=== PATIENT | male | born 1940 | race Caucasian/White ===

== ENCOUNTER 2021-06-22 16:45 | Outpatient (REF) | payer OTHER, SELFPAY ==
[2021-06-22 19:04] LABS: BUN 27 mg/dL (7-18); Calcium 8.9 mg/dL (8.5-10.1); Chloride 107 mmol/L (98-107); Glucose 99 mg/dL (74-106); Potassium 4.4 mmol/L (3.5-5.1); Sodium 143 mmol/L (136-145)
== END 2021-06-22 16:46 | disposition home or self-care (01) ==
LOC: NCHCN 16:45
PROVIDERS: PCP Family Medicine; Visit Provider Nurse Practitioner Family
DX: I10 Essential (primary) hypertension (principal)
CPT/HCPCS: 80048

== ENCOUNTER 2022-06-24 15:34 | Outpatient (REF) | payer OTHER, SELFPAY ==
[2022-06-24 16:29] LABS: Anion Gap 10.8 mmol/L (3-11); BUN 24 mg/dL (7-18); CO2 24.2 mmol/L (21.0-32.0); CREATININE 1.1 mg/dL (0.70-1.30); Calcium 9.3 mg/dL (8.5-10.1); Chloride 106 mmol/L (98-107); Glucose 100 mg/dL (74-106); Potassium 4.2 mmol/L (3.5-5.1); Sodium 141 mmol/L (136-145)
== END 2022-06-24 15:35 | disposition home or self-care (01) ==
LOC: NCHCN 15:34
PROVIDERS: Visit Provider Nurse Practitioner Family
DX: I10 Essential (primary) hypertension (principal)
CPT/HCPCS: 80048

== ENCOUNTER 2022-09-09 18:02 | Outpatient (REF) | payer OTHER, SELFPAY ==
[2022-09-09 19:31] LABS: HCT 38.8 % (40.0-50.0); HGB 13.2 g/dL (13.5-17.5); MCV 91 fL (80-95); Platelet Count 165 10^3/uL (130-400); RBC 4.26 10^6/uL (4.36-5.78); RDW-SD 49.6 fL; WBC 5.07 10^3/uL (4.4-10.8)
[2022-09-09 19:49] LABS: TSH (W/Ref FT4) 1.69 uIU/mL (0.36-3.74)
== END 2022-09-09 18:03 | disposition home or self-care (01) ==
LOC: NCHCN 18:02
PROVIDERS: Visit Provider Nurse Practitioner Family
DX: R51.9 Headache, unspecified (principal); I10 Essential (primary) hypertension
CPT/HCPCS: 85027; 84443

== ENCOUNTER 2022-09-10 14:52 | Emergency (ER) | payer OTHER, SELFPAY ==
--- NOTE | 2022-09-10 15:00 | RT.EKG_ITS ---
APPROVED REPORT Exam: Resting ECG Reason for Exam: irregular hr, sob Patient Location: E HR:132 bpm ECG Measurements Heart Rate 132 AXIS CA [id number] P [id number] QRSd 94 QRS 16 QT 314 T 124 QTc 467 Conclusion Atrial fibrillation...V-rate 79-155, irreg A-activity Anterolateral infarct, age indeterminate...Q >35mS, flat/neg T, V3-V6,I,aVL. Afib. Normal axis. No STEMI. I have reviewed and interpreted ECG and agree with software generated interpretation.
[2022-09-10 15:03] VITALS: BP 108/81; PULSE 129; RESP 18; TEMP 36.7; O2SAT 99
[2022-09-10 15:50] LABS: Abs Immature Grans 0.01 10^3/uL (0.0-0.06); Absolute Basophil Count 0.01 10^3/uL (0.0-0.2); Absolute Eosinophil Count 0.02 10^3/uL (0.0-0.7); Absolute Lymphocyte Count 1.02 10^3/uL (1.2-3.4); Absolute Monocyte Count 0.56 10^3/uL (0.1-0.8); Absolute Neutrophil Count 3.42 10^3/uL (1.2-6.7); Basophils % 0.2; Eosinophils % 0.4; HCT 39.6 % (40.0-50.0); HGB 12.9 g/dL (13.5-17.5); Immature Grans % 0.2; Lymphocytes % 20.2; MCH 30.3 pg (27.0-33.0); MCHC 32.6 % (32.0-36.0); MCV 93 fL (80-95); MPV 10.3 fL (8.0-11.0); Monocytes % 11.1; Neutrophils % 67.9; Platelet Count 149 10^3/uL (130-400); RBC 4.26 10^6/uL (4.36-5.78); RDW 15.2 % (11.8-14.1); RDW-SD 51.8 fL; WBC 5.04 10^3/uL (4.4-10.8)
[2022-09-10 16:10] LABS: Albumin 3.8 g/dL (3.4-5.0); Chloride 102 mmol/L (98-107); Total Protein 7.1 g/dL (6.4-8.2)
[2022-09-10 16:12] LABS: ALT 59 U/L (16-63); AST 52 U/L (15-37); Alkaline Phosphatase 110 U/L (46-116); Anion Gap 12.2 mmol/L (3-11); BUN 45 mg/dL (7-18); Bilirubin, Total 0.6 mg/dL (0.2-1.0); CO2 23.8 mmol/L (21.0-32.0); CREATININE 1.6 mg/dL (0.70-1.30); Calcium 8.9 mg/dL (8.5-10.1); Estimated GFR 42.75 (mL/min/1.73m2); Glucose 112 mg/dL (74-106); Magnesium 2.1 mg/dL (1.8-2.4); Potassium 4.5 mmol/L (3.5-5.1); Sodium 138 mmol/L (136-145)
[2022-09-10 16:13] LABS: Bilirubin Negative (Negative); Blood Negative (Negative); Clarity Clear (Clear); Glucose Negative (Negative); Ketones Negative (Negative); Leukocyte Esterase Negative (Negative); Nitrite Negative (Negative); Specific Gravity >= 1.030 (1.005-1.025); Urobilinogen 0.2 EU/dL (Up TO 0.2); pH 5.5 (5-8)
[2022-09-10 16:13] LABS: Troponin I 101 ng/L (<or=60)
[2022-09-10 16:28] LABS: Bacteria Few HPF (Negative); C & S Indicated? Yes; Casts 10-20 Hyaline LPF (Negative); Crystals Negative HPF (Negative); Epithelial Cells Rare HPF (Negative); Mucus Moderate (Negative); RBC 0-2 HPF (0-2); WBC 20-50 HPF (0-5)
[2022-09-10 16:37] LABS: COVID-19 PCR Negative (Negative); Influenza A PCR Negative (Negative); Influenza B PCR Negative (Negative); RSV PCR Negative (Negative)
[2022-09-10 16:41] LABS: Source Nasopharynx
--- NOTE | 2022-09-10 16:48 | ED.GENADUL_ITS ---
Discharge Plan Disposition Patient Disposition: HOME Condition: Improving Discharge Details Clinical Impression: New onset atrial fibrillation, Elevated troponin Primary Care Provider: Radha Amador V ED Provider: Bryanna Davila Home Meds and New Rx's Prescriptions: New metoprolol tartrate 25 mg tablet 25 mg PO BID Qty: 60 0RF Eliquis 5 mg tablet 5 mg PO BID Qty: 90 0RF Rx Instructions: Take 2 tabs twice daily for 1 week then 1 tab twice daily Discontinued aspirin [Aspir-81] 81 MG tablet,delayed release (DR/EC) 81 mg PO DAILY lisinopril 10 MG tablet 10 mg PO DAILY hydrochlorothiazide 25 MG tablet 25 mg PO DAILY Discharge Instructions Instructions: A-fib (Atrial Fibrillation) (ED) Additional Instructions: Your heart rate is elevated and irregular consistent with a diagnosis of an abnormal heart rhythm called atrial fibrillation. It has been recommended by [facility] cardiology to stop taking your hydrochlorothiazide and lisinopril today. Prescriptions for the heart medication metoprolol to decrease your heart rate and the blood thinner Eliquis to prevent a blood clot have been sent electronically to your pharmacy. You have been placed on care management list to help arrange for a follow-up appointment with a wire web worker and to schedule an outpatient echocardiogram at [place] as you requested. Return immediately to the emergency department if you develop any worsening or new concerning symptoms. Referrals: Rowena Huntley MD [ [facility] STAFF PHYSICIAN] - Discharge Data Discharge Date/Time-TO BE ENTERED AT DEPARTURE: 09/10/22 22:48 Discharge Physician: Bryanna Davila Medical Decision Making 81-year-old male with a history of hypertension presents for dyspnea with exertion for the past 2 weeks. Also initially endorsed headache since the COVID booster but states this has been resolving. Denies headache at present. EKG on arrival notes a rate of 132, atrial fibrillation. Patient denies any known history of atrial fibrillation. Blood pressure 108/81. He appears comfortable and nontoxic. He has no focal deficits or meningeal signs. Due to high volume and acuity on arrival, screening labs were obtained and noted an elevated troponin of 101. He has no ischemic changes and denies any chest pain suspect this is demand from tachycardia. Urinalysis also obtained and notes 20-50 WBCs with negative leukocyte esterase, negative nitrite, urine culture sent. Fluvid negative. Will order a dose of 10 mg Cardizem IV and small bolus IV fluids. Will obtain a portable cxr. Will plan for repeat troponin and ekg. Pt would prefer to go home. 1899 --repeat troponin downtrending. Repeat EKG negative for ischemic change. His heart rate has remained in the 80s to 90s. Chest x-ray notes small right pleural effusion but no other acute disease. Case discussed with [facility] cardiology who notes that on an echo in June 2021 patient had moderate aortic stenosis. Could consider admission for repeat echocardiogram and telemetry monitoring. Informed that patient would like to go home. This is also a reasonable plan as you can obtain an echo outpatient and plan to hold his HCTZ and lisinopril and start metoprolol tartrate 25 to 50 mg twice daily. Recommend starting Eliquis for anticoagulation. Recommend follow- up with cardiology outpatient. 1999 --patient reassessed and his heart rate is in the low 100s to 120s. His blood pressure is 114/74. He is otherwise asymptomatic. There are no beds available here. Discussed with patient that we can consider transferring to another facility for admission for new onset atrial fibrillation but he would like to go home. Disposition decision made weighing the risks and benefits of hospitalization versus outpatient treatment, the risk for further decompensation, and the patient's wishes. Will give a dose of metoprolol 25 mg p.o. now. We will send with prescription for metoprolol tartrate 25 mg p.o. twice daily with plan for holding his HCTZ and lisinopril. We will also start on Eliquis. Will order an outpatient echocardiogram and placed on care management fluids for a follow-up appointment with cardiology. Patient would like to schedule his echocardiogram at [facility]. Patient placed on care management list to arrange for a follow-up appointment with cardiology and obtain an outpatient echocardiogram at [facility]. Usual and customary return precautions given prior to discharge. Medical Records Medical records reviewed: Yes I reviewed the patient's medical records. Imaging Data Radiologic Study: Radiologist's impression: XR Chest Exam date and time: 09/10/2022 17:22 Age: 81 years old Clinical indication: Shortness of breath and other: SOB w/ exertion TECHNIQUE: Imaging protocol: Radiologic exam of the chest. Views: 2 views. COMPARISON: No relevant prior studies available. FINDINGS: Lungs: Probable minor compressive atelectasis in the right lung base. Suspected emphysema. No airspace consolidation. Pleural spaces: Small right pleural effusion. No pneumothorax. Heart/Mediastinum: Mild cardiomegaly without significant vascular congestion. Bones/joints: Chronic bony changes with no acute fracture. IMPRESSION: 1. Mild cardiomegaly without significant vascular congestion. 2. Small right pleural effusion. 3. Chronic findings as described. Lab Data Lab results reviewed: Yes I reviewed the patient's lab results. Labs: 09/10/22 16:09 Urine - Reflex from Ua Urine Culture - Pending Laboratory Tests Range/Units 09/10/22 09/10/22 09/10/22 15:32 15:44 15:44 WBC (4.4-10.8) 10^3/uL 5.04 RBC (4.36-5.78) 10^6/uL 4.26 L Hgb (13.5-17.5) g/dL 12.9 L Hct (40.0-50.0) % 39.6 L MCV (80-95) fL 93 MCH (27.0-33.0) pg 30.3 MCHC (32.0-36.0) % 32.6 RDW (11.8-14.1) % 15.2 H Plt Count (130-400) 10^3/uL 149 MPV (8.0-11.0) fL 10.3 Immature Gran % 0.2 Neutrophils % 67.9 Lymphocytes % 20.2 Monocytes % 11.1 Eosinophils % 0.4 Basophils % 0.2 Nucleated RBC % (0.0-0.3) % 0.0 Absolute Neutrophils (1.2-6.7) 10^3/uL 3.42 Absolute Lymphocytes (1.2-3.4) 10^3/uL 1.02 L Absolute Monocytes (0.1-0.8) 10^3/uL 0.56 Absolute Eosinophils (0.0-0.7) 10^3/uL 0.02 Absolute Basophils (0.0-0.2) 10^3/uL 0.01 Sodium (136-145) mmol/L 138 Potassium (3.5-5.1) mmol/L 4.5 Chloride (98-107) mmol/L 102 Carbon Dioxide (21.0-32.0) mmol/L 23.8 Anion Gap (3-11) mmol/L 12.2 H BUN (7-18) mg/dL 45 H Creatinine (0.70-1.30) mg/dL 1.6 H Est GFR (CKD-EPI 2020) (mL/min/1.73m2) 42.75 Glucose (74-106) mg/dL 112 H Calcium (8.5-10.1) mg/dL 8.9 Magnesium (1.8-2.4) mg/dL 2.1 Total Bilirubin (0.2-1.0) mg/dL 0.6 AST (15-37) U/L 52 H ALT (16-63) U/L 59 Alkaline Phosphatase (46-116) U/L 110 Troponin I (<or=60) ng/L 101 H* Total Protein (6.4-8.2) g/dL 7.1 Albumin (3.4-5.0) g/dL 3.8 TSH (0.36-3.74) uIU/mL Urine Color (Yellow) Urine Clarity (Clear) Urine pH (5-8) Ur Specific [place] (1.005-1.025) Urine Protein (Negative) mg/dL Urine Ketones (Negative) mg/dL Urine Blood (Negative) Urine Nitrite (Negative) Urine Bilirubin (Negative) Urine Urobilinogen (Up TO 0.2) EU/dL Ur Leukocyte Esterase (Negative) Urine RBC (0-2) HPF Urine WBC (0-5) HPF Ur Epithelial Cells (Negative) HPF Urine Crystals (Negative) HPF Urine Bacteria (Negative) HPF Urine Casts (Negative) LPF Urine Mucus (Negative) Ur Culture Indicated? Urine Glucose (Negative) mg/dL COVID-19 Source Nasopharynx SARS-CoV-2 (PCR) (Negative) Negative Influenza Type A (PCR) (Negative) Negative Influenza Type B (PCR) (Negative) Negative RSV (PCR) (Negative) Negative Range/Units 09/10/22 09/10/22 09/10/22 16:09 17:20 19:02 WBC (4.4-10.8) 10^3/uL RBC (4.36-5.78) 10^6/uL Hgb (13.5-17.5) g/dL Hct (40.0-50.0) % MCV (80-95) fL MCH (27.0-33.0) pg MCHC (32.0-36.0) % RDW (11.8-14.1) % Plt Count (130-400) 10^3/uL MPV (8.0-11.0) fL Immature Gran % Neutrophils % Lymphocytes % Monocytes % Eosinophils % Basophils % Nucleated RBC % (0.0-0.3) % Absolute Neutrophils (1.2-6.7) 10^3/uL Absolute Lymphocytes (1.2-3.4) 10^3/uL Absolute Monocytes (0.1-0.8) 10^3/uL Absolute Eosinophils (0.0-0.7) 10^3/uL Absolute Basophils (0.0-0.2) 10^3/uL Sodium (136-145) mmol/L Potassium (3.5-5.1) mmol/L Chloride (98-107) mmol/L Carbon Dioxide (21.0-32.0) mmol/L Anion Gap (3-11) mmol/L BUN (7-18) mg/dL Creatinine (0.70-1.30) mg/dL Est GFR (CKD-EPI 2020) (mL/min/1.73m2) Glucose (74-106) mg/dL Calcium (8.5-10.1) mg/dL Magnesium (1.8-2.4) mg/dL Total Bilirubin (0.2-1.0) mg/dL AST (15-37) U/L ALT (16-63) U/L Alkaline Phosphatase (46-116) U/L Troponin I (<or=60) ng/L 95 H* Total Protein (6.4-8.2) g/dL Albumin (3.4-5.0) g/dL TSH (0.36-3.74) uIU/mL 2.36 Urine Color (Yellow) Yellow Urine Clarity (Clear) Clear Urine pH (5-8) 5.5 Ur Specific [place] (1.005-1.025) >= 1.030 H Urine Protein (Negative) mg/dL 30 H Urine Ketones (Negative) mg/dL Negative Urine Blood (Negative) Negative Urine Nitrite (Negative) Negative Urine Bilirubin (Negative) Negative Urine Urobilinogen (Up TO 0.2) EU/dL 0.2 Ur Leukocyte Esterase (Negative) Negative Urine RBC (0-2) HPF 0-2 Urine WBC (0-5) HPF 20-50 H Ur Epithelial Cells (Negative) HPF Rare Urine Crystals (Negative) HPF Negative Urine Bacteria (Negative) HPF Few Urine Casts (Negative) LPF 10-20 Hyaline Urine Mucus (Negative) Moderate Ur Culture Indicated? Yes Urine Glucose (Negative) mg/dL Negative COVID-19 Source SARS-CoV-2 (PCR) (Negative) Influenza Type A (PCR) (Negative) Influenza Type B (PCR) (Negative) RSV (PCR) (Negative) ECG Data Attestation: I personally reviewed and interpreted this ECG (s) as follows: Interpretation: #1 -- rate of 132, afib, normal axis, no stemi. #2 -- rate of 105, afib, normal axis, no stemi. HPI General Mode of arrival: ambulatory . Date/Time Provider Initiated Documentation: 09/10/22 15:21 . Limitations to Documentation: no limitations . Information obtained by: patient . HPI Narrative: Patient is an 81-year-old male with a history of hypertension who presents for shortness of breath with exertion over the past 2 weeks, getting progressively worse. Patient also complained initially of posterior headache since obtaining a COVID booster 2 weeks ago but states this headache has been improving. Denies any headache at present. He denies any blurry vision, neck pain, chest pain, abdominal pain, cough, nausea, vomiting, diarrhea or leg swelling. Related Data Home Medications Medication Instructions Recorded Confirmed apixaban 5 mg tablet (Eliquis) 5 mg PO BID #90 tabs 09/10/22 metoprolol tartrate 25 mg tablet 25 mg PO BID #60 tabs 09/10/22 Previous Rx's Medication Instructions Recorded apixaban 5 mg tablet (Eliquis) 5 mg PO BID #90 tabs 09/10/22 metoprolol tartrate 25 mg tablet 25 mg PO BID #60 tabs 09/10/22 Allergies Allergy/AdvReac Type Severity Reaction Status Date / Time No Known Allergies Allergy Unverified 09/10/22 15:11 General Stated Complaint: Nausea/Vomit/Diar KURT: 3 Review of Systems All systems reviewed & are unremarkable except as noted in HPI and below Constitutional Constitutional: Denies chills, Denies excessive sweating, Denies fatigue, Denies fever(s), Reports headache(s), Denies weakness and Denies weight loss Eyes Eyes: Reports system reviewed and no additional complaints, except as documented and Denies blurry vision ENT Ears, Nose, Mouth, and Throat: Denies vertigo, Denies dizziness, Denies otalgia, Reports headache(s), Denies nasal congestion, Denies sore throat and Denies throat swelling Cardiovascular Cardiovascular: Denies chest pain, Denies syncope, Denies rapid heart rate, Reports dyspnea and Reports dyspnea on exertion Respiratory Respiratory: Denies chest congestion, Denies cough, Denies pain on inspiration, Reports dyspnea and Reports dyspnea on exertion Gastrointestinal Gastrointestinal: Denies abdominal pain, Denies diarrhea and Denies vomiting Genitourinary Genitourinary: Denies hematuria, Denies dysuria and Denies flank pain Musculoskeletal Musculoskeletal: Denies back pain and Denies joint swelling Integumentary/Breasts Skin/Breast: Denies lesions and Denies rash Neurologic Neurologic: Denies behavioral changes, Denies confusion, Denies vertigo, Denies dizziness, Denies syncope, Reports headache(s), Denies localized weakness and Denies weakness Psychiatric Psychiatric: Denies behavioral changes, Denies confusion and Denies depression Endocrine Endocrine: Denies excessive sweating and Denies fatigue Hematologic/Lymphatic Hematologic/Lymphatic: Denies easy bruising and Denies lymphadenopathy Allergic/Immunologic Allergic/Immunologic: Denies throat swelling PFSH All Active Problems (Updated 09/10/22 @ 20:18 by Bryanna Davila DO) New onset atrial fibrillation (Acute) Elevated troponin (Acute) Medical History (Updated 09/10/22 @ 20:18 by Bryanna Davila DO) HTN (hypertension) Surgical History (Updated 09/10/22 @ 16:59 by Bryanna Davila DO) No significant past surgical history Social History Smoking/Tobacco Use Status: Never Smoking risk assessment performed?: Yes Alcohol Intake: never Drug use: Never Substance use type: does not use Do you feel safe at home: Yes Do you feel safe in your relationship?: Yes Exam Const General: cooperative and no acute distress Orientation: alert, awake and oriented x3 HENMT Head: normal to inspection Ears: hearing grossly normal bilaterally, external ears normal and TM's normal bilaterally General nose exam: external nose normal Face and sinus: normal facial exam Mouth: oral mucosae normal Teeth and gingiva: dentition normal Throat: posterior oropharynx normal Eyes General: appearance normal, both eyes and all related structures Eyelids: eyelids normal Pupils: PERRL EOM: EOM intact bilaterally Neck Neck: normal visual inspection Lymphatic: no lymphadenopathy noted Chest Chest: normal inspection of the chest Resp Effort & Inspection: normal respiratory effort and able to speak in complete sentences Auscultation: clear to auscultation bilaterally Cardio Rate: tachycardic Rhythm: abnormal rhythm irregularly irregular GI Inspection: normal to inspection Palpation: soft, not firm, no guarding, no hepatosplenomegaly, no masses and nontender Auscultation: hypoactive bowel sounds Skin General skin exam: no rashes or lesions noted Neuro General: patient alert, patient awake, patient oriented x3, moves all extremities and no meningeal signs Cranial Nerves: CN's II-XI intact bilaterally Cognition: normal cognition Speech: speech normal Gait: normal gait Motor: muscle tone normal throughout and strength 5/5 throughout Sensory Exam: no sensory deficits noted Extrem General: normal to inspection, full ROM, capillary refill normal and no edema Psych Appearance: grossly normal Mental Status: mental status grossly normal Speech and Movement: speech and movement normal Affect: normal affect Thought Process: normal Course Vital Signs Vital signs: Vital Signs Temperature 98.0 F 09/10/22 15:03 Pulse 129 H 09/10/22 15:03 Respiratory Rate 18 09/10/22 15:03 Blood Pressure 108/81 09/10/22 15:03 Pulse Oximetry 99 09/10/22 15:03 Temperature 98.0 F 09/10/22 15:03 Temperature Source Oral 09/10/22 15:03 Pulse 129 H 09/10/22 15:03 Respiratory Rate 18 09/10/22 15:03 Respiratory Effort Non-Labored 09/10/22 15:09 Blood Pressure 108/81 09/10/22 15:03 Blood Pressure Position Sitting 09/10/22 15:03 Pulse Oximetry 99 09/10/22 15:03 Oxygen Delivery Method Room Air 09/10/22 15:03 Oxygen Flow Rate 0 09/10/22 15:03 Pain Level 0 09/10/22 15:03 Lab/Test Results Lab/Test Results: 09/10/22 16:09 Urine - Reflex from Ua Urine Culture - Pending Laboratory Tests Range/Units 09/10/22 09/10/22 09/10/22 15:32 15:44 15:44 WBC (4.4-10.8) 10^3/uL 5.04 RBC (4.36-5.78) 10^6/uL 4.26 L Hgb (13.5-17.5) g/dL 12.9 L Hct (40.0-50.0) % 39.6 L MCV (80-95) fL 93 MCH (27.0-33.0) pg 30.3 MCHC (32.0-36.0) % 32.6 RDW (11.8-14.1) % 15.2 H Plt Count (130-400) 10^3/uL 149 MPV (8.0-11.0) fL 10.3 Immature Gran % 0.2 Neutrophils % 67.9 Lymphocytes % 20.2 Monocytes % 11.1 Eosinophils % 0.4 Basophils % 0.2 Nucleated RBC % (0.0-0.3) % 0.0 Absolute Neutrophils (1.2-6.7) 10^3/uL 3.42 Absolute Lymphocytes (1.2-3.4) 10^3/uL 1.02 L Absolute Monocytes (0.1-0.8) 10^3/uL 0.56 Absolute Eosinophils (0.0-0.7) 10^3/uL 0.02 Absolute Basophils (0.0-0.2) 10^3/uL 0.01 Sodium (136-145) mmol/L 138 Potassium (3.5-5.1) mmol/L 4.5 Chloride (98-107) mmol/L 102 Carbon Dioxide (21.0-32.0) mmol/L 23.8 Anion Gap (3-11) mmol/L 12.2 H BUN (7-18) mg/dL 45 H Creatinine (0.70-1.30) mg/dL 1.6 H Est GFR (CKD-EPI 2020) (mL/min/1.73m2) 42.75 Glucose (74-106) mg/dL 112 H Calcium (8.5-10.1) mg/dL 8.9 Magnesium (1.8-2.4) mg/dL 2.1 Total Bilirubin (0.2-1.0) mg/dL 0.6 AST (15-37) U/L 52 H ALT (16-63) U/L 59 Alkaline Phosphatase (46-116) U/L 110 Troponin I (<or=60) ng/L 101 H* Total Protein (6.4-8.2) g/dL 7.1 Albumin (3.4-5.0) g/dL 3.8 Urine Color (Yellow) Urine Clarity (Clear) Urine pH (5-8) Ur Specific [place] (1.005-1.025) Urine Protein (Negative) mg/dL Urine Ketones (Negative) mg/dL Urine Blood (Negative) Urine Nitrite (Negative) Urine Bilirubin (Negative) Urine Urobilinogen (Up TO 0.2) EU/dL Ur Leukocyte Esterase (Negative) Urine RBC (0-2) HPF Urine WBC (0-5) HPF Ur Epithelial Cells (Negative) HPF Urine Crystals (Negative) HPF Urine Bacteria (Negative) HPF Urine Casts (Negative) LPF Urine Mucus (Negative) Ur Culture Indicated? Urine Glucose (Negative) mg/dL COVID-19 Source Nasopharynx SARS-CoV-2 (PCR) (Negative) Negative Influenza Type A (PCR) (Negative) Negative Influenza Type B (PCR) (Negative) Negative RSV (PCR) (Negative) Negative Range/Units 09/10/22 16:09 WBC (4.4-10.8) 10^3/uL RBC (4.36-5.78) 10^6/uL Hgb (13.5-17.5) g/dL Hct (40.0-50.0) % MCV (80-95) fL MCH (27.0-33.0) pg MCHC (32.0-36.0) % RDW (11.8-14.1) % Plt Count (130-400) 10^3/uL MPV (8.0-11.0) fL Immature Gran % Neutrophils % Lymphocytes % Monocytes % Eosinophils % Basophils % Nucleated RBC % (0.0-0.3) % Absolute Neutrophils (1.2-6.7) 10^3/uL Absolute Lymphocytes (1.2-3.4) 10^3/uL Absolute Monocytes (0.1-0.8) 10^3/uL Absolute Eosinophils (0.0-0.7) 10^3/uL Absolute Basophils (0.0-0.2) 10^3/uL Sodium (136-145) mmol/L Potassium (3.5-5.1) mmol/L Chloride (98-107) mmol/L Carbon Dioxide (21.0-32.0) mmol/L Anion Gap (3-11) mmol/L BUN (7-18) mg/dL Creatinine (0.70-1.30) mg/dL Est GFR (CKD-EPI 2020) (mL/min/1.73m2) Glucose (74-106) mg/dL Calcium (8.5-10.1) mg/dL Magnesium (1.8-2.4) mg/dL Total Bilirubin (0.2-1.0) mg/dL AST (15-37) U/L ALT (16-63) U/L Alkaline Phosphatase (46-116) U/L Troponin I (<or=60) ng/L Total Protein (6.4-8.2) g/dL Albumin (3.4-5.0) g/dL Urine Color (Yellow) Yellow Urine Clarity (Clear) Clear Urine pH (5-8) 5.5 Ur Specific [place] (1.005-1.025) >= 1.030 H Urine Protein (Negative) mg/dL 30 H Urine Ketones (Negative) mg/dL Negative Urine Blood (Negative) Negative Urine Nitrite (Negative) Negative Urine Bilirubin (Negative) Negative Urine Urobilinogen (Up TO 0.2) EU/dL 0.2 Ur Leukocyte Esterase (Negative) Negative Urine RBC (0-2) HPF 0-2 Urine WBC (0-5) HPF 20-50 H Ur Epithelial Cells (Negative) HPF Rare Urine Crystals (Negative) HPF Negative Urine Bacteria (Negative) HPF Few Urine Casts (Negative) LPF 10-20 Hyaline Urine Mucus (Negative) Moderate Ur Culture Indicated? Yes Urine Glucose (Negative) mg/dL Negative COVID-19 Source SARS-CoV-2 (PCR) (Negative) Influenza Type A (PCR) (Negative) Influenza Type B (PCR) (Negative) RSV (PCR) (Negative)
--- NOTE | 2022-09-10 17:00 | DI.RAD_ITS ---
Exam(s) XR CHEST 2V PA LATERAL EXAM: XR CHEST 2V PA LATERAL CLINICAL HISTORY: sob w/ exertion, r/o acute disease. TECHNIQUE: 2D digital imaging was performed. COMPARISON: No exams were available for comparison FINDINGS: 2 views: Moderate cardiomegaly. Mediastinum not widened. There is a density in the right lower lobe infrahilar region. This measures approximately 4.5 by is 2.5 cm. Also small right pleural effusion noted. Left lung is clear. IMPRESSION: Right lower lobe findings and small right pleural effusion. Follow-up CT scan recommended. DATA REPOSITORY: RADIATION DOSE DELIVERED:
--- NOTE | 2022-09-10 17:50 | DI.VRAD_ITS ---
PROCEDURE INFORMATION: Exam: XR Chest Exam date and time: 09/10/2022 17:22 Age: 81 years old Clinical indication: Shortness of breath and other: SOB w/ exertion TECHNIQUE: Imaging protocol: Radiologic exam of the chest. Views: 2 views. COMPARISON: No relevant prior studies available. FINDINGS: Lungs: Probable minor compressive atelectasis in the right lung base. Suspected emphysema. No airspace consolidation. Pleural spaces: Small right pleural effusion. No pneumothorax. Heart/Mediastinum: Mild cardiomegaly without significant vascular congestion. Bones/joints: Chronic bony changes with no acute fracture. IMPRESSION: 1. Mild cardiomegaly without significant vascular congestion. 2. Small right pleural effusion. 3. Chronic findings as described. Dictated and Authenticated by: Denise Scott MD. Ordering:MOLLY Gould MD
[2022-09-10 17:58] VITALS: PULSE 90
[2022-09-10] MEDS: dilTIAZem 25 MG/5 ML VIAL 10 MG IVP (17:58)
[2022-09-10] MEDS: Normal Saline 250 ML IV (18:00)
--- NOTE | 2022-09-10 18:00 | RT.EKG_ITS ---
APPROVED REPORT Exam: Resting ECG Reason for Exam: sob Patient Location: E HR:105 bpm ECG Measurements Heart Rate 105 AXIS MS [id number] P [id number] QRSd 96 QRS 27 QT 375 T 112 QTc 497 Conclusion Atrial fibrillation...V-rate 71-136, irreg A-activity Anterior infarct, old...Q >40mS, abnormal ST-T, V2-V5. Afib. Normal axis. No STEMI. I have reviewed and interpreted ECG and agree with software generated interpretation.
[2022-09-10 18:06] LABS: Troponin I 95 ng/L (<or=60)
[2022-09-10 19:47] LABS: TSH (W/Ref FT4) 2.36 uIU/mL (0.36-3.74)
[2022-09-10] MEDS: Metoprolol 25 MG TAB PO (20:39)
[2022-09-10] MEDS: Apixaban 5 MG TAB 20 MG PO (20:48)
--- NOTE | 2022-09-11 00:27 | NUR.NOTE ---
Referral to Care Management to get Echocardiogram at [facility] and a f/u with [facility] [employer]ologist adiel for new onset A-Fib.Nursing Note:
--- NOTE | 2022-09-12 14:54 | CMACTNOTE_ITS ---
- If Service Date Differs Date of service: 09/12/22 Time of Service: 14:54 Care Management Activity Note Domingo is seen in the ED for new onset A-FIb. CM receives a request from ED provider to assist patient to obtain an appointment with a nuclear medicine officer in [place] and an Echocardiogram. CM contacts the [facility], patient's PCP's office, to request their assistance and is advised that a referral has already been made to a nuclear medicine officer in [place] and the Echo has been ordered.
== END 2022-09-10 22:48 | disposition home or self-care (01) ==
PROVIDERS: Emergency Provider Physician Assistant; PCP Family Medicine
DX: I48.91 Unspecified atrial fibrillation (principal); R77.8 Other specified abnormalities of plasma proteins; I10 Essential (primary) hypertension; Z20.822 Contact with and (suspected) exposure to COVID-19
CPT/HCPCS: 36415; 80053; 87637; 93005; 96361; 96374; 99284; 99285; 71046; 81003; 81015; 83735; 84443; 84484; 85025; 87086; 93010

== ENCOUNTER 2022-09-16 14:46 | Inpatient (IN) | payer OTHER, SELFPAY ==
[2022-09-16] VITALS (61 sets, daily range): BP systolic 84–153; BP diastolic 58–140; PULSE 50–149; RESP 16–38; TEMP 35.9–37.1; O2SAT 94–99
--- NOTE | 2022-09-16 14:45 | RT.EKG_ITS ---
APPROVED REPORT Exam: Resting ECG Reason for Exam: sob Patient Location: E HR:128 bpm ECG Measurements Heart Rate 128 AXIS HI [id number] P [id number] QRSd 100 QRS 14 QT 318 T 139 QTc 465 Conclusion Atrial fibrillation...? atrial activity Ventricular premature complex...V complex w/ short R-R interval Probable anterolateral infarct, age indeterm...Q >35mS, T neg, V2-V6,I,aVL
--- NOTE | 2022-09-16 15:03 | DI.RAD_ITS ---
Exam(s) XR CHEST 2V PA LATERAL EXAM: XR CHEST 2V PA LATERAL CLINICAL HISTORY: SOB TECHNIQUE: 2D digital imaging was performed. COMPARISON: CR,XR XR CHEST 2V PA LATERAL from 09/10/2022 FINDINGS: Exam is limited by poor pulmonary inflation on both views. HEART: Enlarged, unchanged. Aorta: Not dilated. PULMONARY VASCULATURE: Normal. LUNGS: Increased density seen posteriorly at the lung bases, atelectasis versus infiltrate. PLEURAL SPACE: No pleural effusion or pneumothorax. BONE:Stable mild midthoracic compression fracture. IMPRESSION: Bibasilar atelectasis versus infiltrate. Limited exam due to poor pulmonary inflation DATA REPOSITORY: RADIATION DOSE DELIVERED:
--- NOTE | 2022-09-16 15:30 | ED.GENADUL_ITS ---
Discharge Plan Disposition Patient Disposition: [facility] INPATIENT Condition: Stable Discharge Details Clinical Impression: A-fib, Acute kidney injury Primary Care Provider: Radha Amador V ED Provider: Christian Ma Home Meds and New Rx's Prescriptions: No Action Eliquis 5 mg tablet 5 mg PO BID Qty: 90 0RF Rx Instructions: Take 2 tabs twice daily for 1 week then 1 tab twice daily metoprolol tartrate 25 mg tablet 12.5 mg PO BID Medical Decision Making 81-year-old male recently diagnosed with atrial fibrillation, placed on metoprolol and Eliquis. States 2 days ago his metoprolol dose was reduced from 25 to 12.5 mg. Has had weakness and episodes such as earlier today when he developed shortness of breath at home. He denies chest pain, cough. Note of initial triage with heart rates proxy 128. He is oxygenating normally and is afebrile. Chest x-ray with bibasilar atelectasis versus infiltrate. Laboratories will note a white count of 5, hematocrit 47 and platelets 174. Chemistries reveal metabolic derangements: Sodium is 135, potassium 5.1, bicarb 17, BUN 68, creatinine 1.8. Magnesium 1.7, AST 202, ALT 234. Troponin is elevated at 93 and BNP is elevated at 32,000 454. In June of this year the patient had normal renal function and has progressively worsened since that time. Repeat troponin remains elevated at 92. More concerning to me is a significant elevation of his BUN and creatinine. I would like to admit him overnight for rate control and fluid resuscitation. He may benefit from echocardiogram as well. On September 10 patient had been evaluated in the emergency department. He had had elevated troponin at the time and the case was discussed with his [facility] cardiology team.. Notes from that visit?state patient previously had echocardiogram in June 2021 with moderate aortic stenosis.? At that time the patient was asked to hold his HCTZ and lisinopril, he was started on Eliquis for anticoagulation.? Lab Data Lab results reviewed: Yes I reviewed the patient's lab results. Labs: Laboratory Results - last 24 hr 09/16/22 09/16/22 09/16/22 16:02 16:02 16:02 WBC 5.74 RBC 5.05 Hgb 15.3 Hct 47.1 MCV 93 MCH 30.3 MCHC 32.5 RDW 15.9 H Plt Count 174 MPV 10.8 Immature Gran % 0.3 Neutrophils % 78.8 Lymphocytes % 12.7 Monocytes % 8.0 Eosinophils % 0.0 Basophils % 0.2 Nucleated RBC % 0.0 Absolute Neutrophils 4.52 Absolute Lymphocytes 0.73 L Absolute Monocytes 0.46 Absolute Eosinophils 0.00 Absolute Basophils 0.01 PT 22.1 H INR 2.3 H APTT 26.3 Sodium Cancelled Potassium Cancelled Chloride Cancelled Carbon Dioxide Cancelled Anion Gap Cancelled BUN Cancelled Creatinine Cancelled Est GFR (CKD-EPI 2020) Cancelled Glucose Cancelled Calcium Cancelled Magnesium Cancelled Total Bilirubin Cancelled AST Cancelled ALT Cancelled Alkaline Phosphatase Cancelled Troponin I Cancelled NT-Pro-B Natriuret Pep Cancelled Total Protein Cancelled Albumin Cancelled 09/16/22 09/16/22 16:59 18:00 WBC RBC Hgb Hct MCV MCH MCHC RDW Plt Count MPV Immature Gran % Neutrophils % Lymphocytes % Monocytes % Eosinophils % Basophils % Nucleated RBC % Absolute Neutrophils Absolute Lymphocytes Absolute Monocytes Absolute Eosinophils Absolute Basophils PT INR APTT Sodium 135 L Potassium 5.1 Chloride 101 Carbon Dioxide 17.0 L Anion Gap 17.0 H BUN 68 H Creatinine 1.8 H Est GFR (CKD-EPI 2020) 37.12 Glucose 144 H Calcium 9.2 Magnesium 1.7 L Total Bilirubin 1.1 H AST 202 H ALT 234 H Alkaline Phosphatase 105 Troponin I 93 H* 92 H* NT-Pro-B Natriuret Pep 43663 H Total Protein 6.7 Albumin 3.6 HPI General Mode of arrival: ambulatory . Date/Time Provider Initiated Documentation: 09/16/22 15:03 . Limitations to Documentation: no limitations . Information obtained by: patient . History of Present Illness 81 year old M presents to the emergency department with the chief complaint of Shortness of breath recent diagnosis of A. fib, described as moderate, and is localized to the chest. Patient reports no radiation. Patient started experiencing this minute(s) and it has been now resolved. No relieving factors improve symptom(s), Movement worsens symptoms . Patient notes loss of appetite and weakness; denies chest pain, cough, fever/chills, seizure and syncope. Patient did receive the following treatments prior to arrival, none Related Data Home Medications Medication Instructions Recorded Confirmed apixaban 5 mg tablet (Eliquis) 5 mg PO BID #90 tabs 09/10/22 09/16/22 metoprolol tartrate 25 mg tablet 12.5 mg PO BID 09/16/22 09/16/22 Previous Rx's Medication Instructions Recorded apixaban 5 mg tablet (Eliquis) 5 mg PO BID #90 tabs 09/10/22 Allergies Allergy/AdvReac Type Severity Reaction Status Date / Time No Known Allergies Allergy Unverified 09/10/22 15:11 General Stated Complaint: SOB KURT: 3 Review of Systems Narrative: Recent reduction of metoprolol from 25 mg twice daily to 12.5 mg daily for the last 2 days. Generalized weakness. Has not noted palpitations but also has not PFSH All Active Problems (Updated 09/16/22 @ 19:25 by Christian Ma MD) New onset atrial fibrillation (Acute) Elevated troponin (Acute) A-fib (Chronic) Acute kidney injury (Acute) Medical History HTN (hypertension) Surgical History No significant past surgical history Social History Smoking/Tobacco Use Status: Never Smoking risk assessment performed?: Yes Alcohol Intake: never Drug use: Never Substance use type: does not use Do you feel safe at home: Yes Do you feel safe in your relationship?: Yes Exam Narrative Exam Narrative: GEN: awake, alert, oriented 3. Pleasant, gaunt appearing HEAD: Normocephalic, atraumatic ENT: Mucous membranes dry, oropharynx unremarkable, External ear exam unremarkable EYES: PERRL, EOMI NECK: Full ROM, no ZACH, no menigismus CHEST/RESP: Nontender, clear to auscultation bilateral, no wheeze/rhonchi/rales CARDIOVASCULAR: Tachycardic, irregularly irregular, no murmur, rub viridiana. 2+ Rad pulse bilateral ABDOMEN: Soft, nontender, no mass. +Bowel sounds EXT: Full ROM, no edema, no rash Neuro: Grossly normal neurologic exam, conversant, interactive. Psych: Speech fluent, thoughts congruent, affect normal Course Vital Signs Vital signs: Vital Signs Temperature 35.9 C L 09/16/22 14:49 Pulse 128 H 09/16/22 14:49 Respiratory Rate 16 09/16/22 14:49 Blood Pressure 107/83 09/16/22 14:49 Pulse Oximetry 97 09/16/22 14:49 Temperature 35.9 C L 09/16/22 14:49 Temperature Source Tympanic 09/16/22 14:49 Pulse 128 H 09/16/22 14:49 Respiratory Rate 20 09/16/22 14:54 Respiratory Effort Non-Labored 09/16/22 14:54 Respiratory Depth Normal 09/16/22 14:54 Respiratory Pattern Normal 09/16/22 14:54 Blood Pressure 107/83 09/16/22 14:49 Blood Pressure Position Sitting 09/16/22 14:49 Pulse Oximetry 97 09/16/22 14:49 Oxygen Delivery Method Room Air 09/16/22 14:49 Oxygen Flow Rate 0 09/16/22 14:49 Pain Level 0 09/16/22 14:49
[2022-09-16] MEDS: Metoprolol 12.5 MG TAB PO (15:55)
--- NOTE | 2022-09-16 16:01 | W.ED.PROC ---
Date of service: 09/16/22 Time of Service: 16:01 Procedures EJ/Peripheral Line Arm R: Time Out Performed: No Skin Cleansed in Sterile Fashion: Yes Size (gauge): 20 IV Secured and Dressing Applied: Yes Patient Tolerated Procedure: well and no complications
[2022-09-16 16:07] LABS: Abs Immature Grans 0.02 10^3/uL (0.0-0.06); Absolute Basophil Count 0.01 10^3/uL (0.0-0.2); Absolute Lymphocyte Count 0.73 10^3/uL (1.2-3.4); Absolute Monocyte Count 0.46 10^3/uL (0.1-0.8); Absolute Neutrophil Count 4.52 10^3/uL (1.2-6.7); Basophils % 0.2; HCT 47.1 % (40.0-50.0); HGB 15.3 g/dL (13.5-17.5); Immature Grans % 0.3; Lymphocytes % 12.7; MCH 30.3 pg (27.0-33.0); MCHC 32.5 % (32.0-36.0); MCV 93 fL (80-95); MPV 10.8 fL (8.0-11.0); Neutrophils % 78.8; Platelet Count 174 10^3/uL (130-400); RBC 5.05 10^6/uL (4.36-5.78); RDW 15.9 % (11.8-14.1); RDW-SD 53.2 fL; WBC 5.74 10^3/uL (4.4-10.8)
[2022-09-16 16:23] LABS: INR 2.3 (0.9-1.1); PTT Activated 26.3 sec (21.0-27.5); Prothrombin Time 22.1 sec (9.3-11.0)
[2022-09-16] MEDS: Metoprolol 5 MG/5 ML VIAL IVP ×2 (16:34→19:07)
[2022-09-16 17:25] LABS: ALT 234 U/L (16-63); AST 202 U/L (15-37); Albumin 3.6 g/dL (3.4-5.0); Alkaline Phosphatase 105 U/L (46-116); BUN 68 mg/dL (7-18); Bilirubin, Total 1.1 mg/dL (0.2-1.0); CREATININE 1.8 mg/dL (0.70-1.30); Calcium 9.2 mg/dL (8.5-10.1); Chloride 101 mmol/L (98-107); Estimated GFR 37.12 (mL/min/1.73m2); Glucose 144 mg/dL (74-106); Magnesium 1.7 mg/dL (1.8-2.4); NT-proBNP 32454 pg/mL (<300); Potassium 5.1 mmol/L (3.5-5.1); Sodium 135 mmol/L (136-145); Total Protein 6.7 g/dL (6.4-8.2)
[2022-09-16 17:26] LABS: Troponin I 93 ng/L (<or=60)
[2022-09-16] MEDS: Normal Saline 250 ML IV ×2 (17:35→18:33)
[2022-09-16 18:28] LABS: Troponin I 92 ng/L (<or=60)
[2022-09-16 19:21] LABS: Source Nasal/Nares
[2022-09-16 19:54] LABS: COVID-19 PCR Negative (Negative)
--- NOTE | 2022-09-16 19:55 | NUR.NOTE ---
Nursing Note: pt complaining of increased SOB. satting well 96-99% on room air. sitting fully upright. is diminished in LRL but this was reported at handoff so unable to determine if this is the same or worsening. MD woodruff and hospitalist is going in now to see the pt. Some improvement in BP as well
--- NOTE | 2022-09-16 20:05 | HPE_ITS ---
Date of service: 09/16/22 Time of Service: 20:06 Assessment and Plan Assessment and plan (1) SOB (shortness of breath): Status: Acute Assessment and plan: I think this is likely an atypical manifestation of CHF, manifesting without overt signs of congestion -- suggested by orthopnea, elevated jugular pressures and elevated BNP. The transaminitis is also noted which might be c/w passive congestion, but he also was just started on new drug (Lopressor) and ddx includes DILI. Whether the rapid AF is cause or effect is at this point unclear, and all in setting of reported moderate , which could perhaps also be playing a role. Altogether would advise as follows: 1. Digitalize for further rate control, BP may not tolerate further beta sussy, and question (as above) of DILI; trial Cardizem as needed 2. Cardiac ECHO 3. trend troponins, but flat at this point, possibly low grade demand ischemia 4. trial dose Lasix 20 IVP 5. O2 as needed 6. 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 Two days WOUND/OSTOMY CLINICAL NURSE SPECIALIST was instructed to decrease Lopressor to 12.5 bid (circumstances not clear) and returns today with continued and worsening SOB. No CP. No ankle swelling, but does endorse orthopnea. In ER initial findings of note for AF/RVR with pulses in 130s range. Given Lopressor 10 IV in divided doses and 12.5 PO, with slowing of rates to lower 100s. Remainder of initial work up of note for CXR w/o cardiomegaly, and atelectasis vs basilar infiltrate; EKG with AF and poor (absent) RW progression, unchanged from prior; troponin 1 and 2 of 92 and 93, similar to 09/12. BNP >35,000. Azotemia with BUN 64, Cr 1.8; AST 202, ALT 234 and TBili 1.1 (all elevated from 09/12). I was asked to evaluate for admission. On arrival patient states he continues to feel SOB. On my initial arrival O2 sats low 90s, I placed him on 2L NC with sats mid-high 90s, and subjective improvement. Also requested elevation HOB to 90 degrees and again noted subjective improvement. Review of Systems Narrative: per HPI PFSH All Active Problems (Updated 09/16/22 @ 20:17 by Maco Choudhury MD) SOB (shortness of breath) (Acute) New onset atrial fibrillation (Acute) Elevated troponin (Acute) A-fib (Chronic) Acute kidney injury (Acute) Medical History HTN (hypertension) Surgical History No significant past surgical history Social History Smoking/Tobacco Use Status: Never Smoking risk assessment performed?: Yes Alcohol Intake: never Drug use: Never Substance use type: does not use Do you feel safe at home: Yes Do you feel safe in your relationship?: Yes Meds Allergies and Home Medications Allergies Allergy/AdvReac Type Severity Reaction Status Date / Time No Known Allergies Allergy Unverified 09/10/22 15:11 Home Medications Medication Instructions Recorded Confirmed Type apixaban 5 mg tablet (Eliquis) 5 mg PO BID #90 tabs 09/10/22 09/16/22 Rx metoprolol tartrate 25 mg tablet 12.5 mg PO BID 09/16/22 09/16/22 History Exam Narrative Exam Narrative: 96/74, 115, 36.5, 28, 96%. HEENT atraumatic; neck supple, JVP to angle of jaw at 90 degrees, carotid upstroke brisk; lungs clear; heart distnat, irr/irr, no murmur noted; abdomen soft and NT w/o HSM; extremities w/o edema; neuro Ox3, lucid, moves all 4s Results Labs Result diagrams: 09/16/22 16:02 09/16/22 16:59 Labs: Laboratory Results - last 24 hr 09/16/22 09/16/22 09/16/22 16:02 16:02 16:02 WBC 5.74 RBC 5.05 Hgb 15.3 Hct 47.1 MCV 93 MCH 30.3 MCHC 32.5 RDW 15.9 H Plt Count 174 MPV 10.8 Immature Gran % 0.3 Neutrophils % 78.8 Lymphocytes % 12.7 Monocytes % 8.0 Eosinophils % 0.0 Basophils % 0.2 Nucleated RBC % 0.0 Absolute Neutrophils 4.52 Absolute Lymphocytes 0.73 L Absolute Monocytes 0.46 Absolute Eosinophils 0.00 Absolute Basophils 0.01 PT 22.1 H INR 2.3 H APTT 26.3 Sodium Cancelled Potassium Cancelled Chloride Cancelled Carbon Dioxide Cancelled Anion Gap Cancelled BUN Cancelled Creatinine Cancelled Est GFR (CKD-EPI 2020) Cancelled Glucose Cancelled Calcium Cancelled Magnesium Cancelled Total Bilirubin Cancelled AST Cancelled ALT Cancelled Alkaline Phosphatase Cancelled Troponin I Cancelled NT-Pro-B Natriuret Pep Cancelled Total Protein Cancelled Albumin Cancelled COVID-19 Source SARS-CoV-2 (PCR) 09/16/22 09/16/22 09/16/22 16:59 18:00 18:45 WBC RBC Hgb Hct MCV MCH MCHC RDW Plt Count MPV Immature Gran % Neutrophils % Lymphocytes % Monocytes % Eosinophils % Basophils % Nucleated RBC % Absolute Neutrophils Absolute Lymphocytes Absolute Monocytes Absolute Eosinophils Absolute Basophils PT INR APTT Sodium 135 L Potassium 5.1 Chloride 101 Carbon Dioxide 17.0 L Anion Gap 17.0 H BUN 68 H Creatinine 1.8 H Est GFR (CKD-EPI 2020) 37.12 Glucose 144 H Calcium 9.2 Magnesium 1.7 L Total Bilirubin 1.1 H AST 202 H ALT 234 H Alkaline Phosphatase 105 Troponin I 93 H* 92 H* NT-Pro-B Natriuret Pep 11277 H Total Protein 6.7 Albumin 3.6 COVID-19 Source Nasal/Nares SARS-CoV-2 (PCR) Negative Last Vital Signs Temp 36.5 C 09/16/22 18:02 Pulse 143 H 09/16/22 19:16 Resp 28 H 09/16/22 19:20 BP 96/74 L 09/16/22 19:16 Pulse Ox 96 09/16/22 19:20
[2022-09-16] MEDS: Normal Saline Flush 10 ML SYR IVP (22:32)
[2022-09-16] MEDS: Furosemide 20 MG/2 ML VIAL IVP (22:33)
[2022-09-16] MEDS: Digoxin 0.25 MG TAB PO (22:33)
[2022-09-17] VITALS (94 sets, daily range): BP systolic 93–139; BP diastolic 54–105; PULSE 58–130; RESP 16–35; TEMP 36.5–37.1; O2SAT 92–100
--- NOTE | 2022-09-17 | DI.US_ITS ---
APPROVED REPORT EXAM: Comprehensive 2D, Doppler, and color-flow Echocardiogram Patient Location: In-Patient Room/Bed: [id number] Data Entry Email Processor: Agustina Roldan RDCS (AE) Indications: CHF, Rapid AF. H/o Aortic Stenosis, SOB, HTN Other Information Study Quality: Adequate. Technically limited study due to inability to position patient exam done sup ine bedside. Conclusion Normal left ventricular wall thickness and chamber size. Estimated ejection fraction is 20 to 25% wi th severe global hypokinesis The right ventricle is not well visualized Left atrium is mildly dilated. Right atrial size is normal The aortic valve is sclerotic and probably trileaflet. There is mild to moderate aortic regurgitatio n. Mean aortic valve gradient is 12 mmHg. Low-flow low gradient aortic stenosis is suspected Mildly thickened mitral leaflets, mild mitral annular calcification. Severe mitral regurgitation Normal tricuspid valve with moderate regurgitation. Estimated right ventricular systolic pressure is 33 mmHg Dilated ascending aorta measuring 3.95 cm Wall motion Left Ventricle The left ventricle is normal size. Left ventricular systolic function is severely decreased. There is normal left ventricular wall thickness. There is no ventricular septal defect visualized. LVEF is 20 -25%. Right Ventricle Right ventricle is not well visualized. Right ventricular systolic function could not be assessed. Th e RVSP is 32.9 mmHg. Atria Left atrium is mildly dilated. The right atrium size is normal. The interatrial septum is intact with no evidence for an atrial septal defect. Aortic Valve Aortic valve is calcified. Aortic valve is probably trileaflet. Hemodynamically significant valvular aortic stenosis cannot be excluded. Low flow-low gradient aortic stenosis is present. Mild to moderat e aortic regurgitation. Mitral Valve Mild mitral annular calcification. Mitral valve leaflets are mildly thickened. No evidence of mitral valve stenosis. Severe mitral regurgitation. Tricuspid Valve The tricuspid valve is normal in structure. There is no tricuspid valve stenosis. Moderate tricuspid regurgitation. Pulmonic Valve The pulmonary valve is normal in structure. There is no pulmonic valvular stenosis. Mild pulmonic reg urgitation. Great Vessels The aortic root is normal in size. The ascending aorta is mildly dilated. Aortic arch is not well vis ualized. The IVC collapses <50% with inspiration. Pericardium There is no pericardial effusion. 2D Dimensions IVSD d PLAX 0.95 cm M: 0.6-1.2 LV Vol A2C d MOD 91.1 mL LVPW d PLAX 0.91 cm M: 0.6 - 1.2 LV Vol A4C d MOD 154.9 mL LVID d PLAX 5.74 cm M: 4.2 - 5.8 LA Area A4C s MOD 27.42 cm2 LVDs 5.15 cm M: 2.5 - 4.0 LV EF A4C MOD 25.4 % Ao Root d 2.91 cm M: 3.1 - 3.7 LV EF A2C MOD 20.4 % RA Area A4C 16.65 cm2 LV EF Biplane MOD 22.4 % Ao Asc Diam d 3.95 cm M: 2.6 - 3.4 SV 26.58 mL LV EF Teichholz 20.9 % LVEF (Johnson's) 22.43 % M: 52 - 72 LV Volume 118.51 mL M: 62 - 150 LV Volume Index 72.70 mL/m2 M: 34 - 74 LV Vol Biplane MOD 118.5 mL FS 9.65 % M-Mode TAPSE 0.92 cm (M/F) >1.7 LV Diastology MV E' medial 0.052 (>0.07 m/s) MV E Vmax 0.90 (0.4-1.3 m/s) LV E/e MED 17.25 (<14) MV E' lateral 0.090 (>0.1 m/s) LV E/e LAT 10.00 (<14) MV E/E' medial 17.25 MV E/E' lateral 10.04 Aortic Valve LVOT Area 3.23 cm2 AoV Area Vmax 1.17 cm2 LVOT Vmax 0.72 m/s SHAWN Mean Celestino. 1.03 cm2 LVOT Mean Celestino. 0.47 m/s AR DT 1960 msec LVOT Peak Grad 2.1 mmHg AR PHT 568 msec LVOT Mean Grad 1.0 mmHg LVOT VTI 0.115 m LVOT Diam s 2.00 cm AoV Vmax 1.99 m/s Velocity Ratio 0.36 AoV Mean Celestino. 1.46 m/s AoV Peak Grad 15.9 mmHg LVOT SV 36.96 mL AoV Mean Grad 9.5 mmHg AoV VTI 0.304 m AoV Area VTI 1.21 cm2 Mitral Valve MV DT 388 (160-240 msec) MR Vmax 3.54 m/s MV PHT 113 msec MR VTI 0.997 m MV Area PHT 1.96 cm2 MR Peak Grad 50.0 mmHg MV VTI 0.224 m MR Mean Grad 36.7 mmHg MV VTI Annulus 0.221 m MR PISA Radius 0.56 cm MV Area VTI 1.62 (4.0-6.0 cm2) MR EROA 0.19 cm2 MR Aliasing Velocity 0.35 m/s MR PISA 1.94 cm2 Pulmonary Valve PV Vmax 0.68 (0.5-1.5 m/s) RVOT Peak Gr. 0.93 mmHg PV Peak Grad 1.9 mmHg RVOT Mean Gr. 0.45 mmHg PV Mean Grad 1.1 mmHg RVOT VTI 0.071 m PV VTI 0.104 m RVOT Vmax 0.48 m/s Tricuspid Valve TR Peak Grad 24.8 mmHg TR Vmax 2.49 m/s RA Pressure 8.00 mmHg RVSP (TR) 32.9 mmHg
--- NOTE | 2022-09-17 | DI.US_ITS ---
Exam(s) US ABDOMEN EXAM: US ABDOMEN CLINICAL HISTORY: elevated transaminases TECHNIQUE: Ultrasound of complete upper abdomen performed using standard protocol. COMPARISON: No exams were available for comparison FINDINGS: There is no ascites evident. LIVER: There is a benign-appearing cyst in the left hepatic lobe which measures approximately 1.6 x 1 .6 cm. No solid masses in the liver seen but liver is hyperechoic indicating steatosis. GALLBLADDER/BILIARY: There are no gallstones. No gallbladder wall edema nor pericholecystic fluid. The common hepatic duct isnot dilated, measuring 5-6mm at the level of yamilex hepatis. PANCREAS: There is no evidence of pancreatic mass nor dilatation of the pancreatic duct. SPLEEN: The spleen is not enlarged and there are no intrasplenic lesions evident. KIDNEYS:There is a large solid mass evident in the right kidney which measures approximately 9 x 9 x 8 cm, suspicious for malignancy. No significant focal findings in the left kidney. ABDOMINAL AORTA: Atherosclerotic but no aneurysm evident IVC: Normal diameter where visualized. IMPRESSION: 1. Main finding here is a 9 x 8 cm solid mass in the right kidney suspicious for malignancy. 2. Benign hepatic cyst measuring 1.6 x 1.6 cm. 3. There is no ascites. DATA REPOSITORY:
--- NOTE | 2022-09-17 | DI.CT_ITS ---
Exam(s) CT CHEST/ABD/PEL W EXAM: CT CHEST/ABD/PEL W CLINICAL HISTORY: evaluate renal mass and possible mets. TECHNIQUE: Imaging Protocol: Axial computed tomography images with coronal and sagittal reformatted images were created and reviewed CONTRAST MATERIAL: Intravenous: Omnipaque 350 Contrast volume:100 ml Oral: None COMPARISON: No exams were available for comparison FINDINGS: CHEST: LUNGS: There are moderate-sized bilateral pleural effusions, right larger than left.. There is volum e loss and infiltrate in the right lung base. No obvious pulmonary metastatic nodules. No focal fin dings in trachea and mainstem bronchi. MEDIASTINUM: There is no hilar nor mediastinal adenopathy. Visualized thyroid unremarkable. CARDIAC: There is cardiomegaly. No pericardial effusion. Coronary artery calcification noted. Zak laine thoracic aorta is within normal limits. No dissection evident. OSSEOUS: No significant osseous lesions.Indentation at the superior endplate L2, not appearing acute. . ABDOMEN: There is no ascites. LIVER: There is a 1.2 by 0.9 cm hypodensity in the left hepatic lobe as well as another well-defined hypodensity in left hepatic lobe, measuring 12 x 12 millimeters. These are both probably cysts arm a ngiomas. Less likely metastatic disease. GALLBLADDER/BILIARY: No obvious gallbladder pathology. CBD is not dilated. PANCREAS: No evidence of pancreatic mass nor dilatation of the pancreatic duct. SPLEEN: Spleen is not enlarged. There are no intrasplenic lesions. Splenic and portal veins are ku nt. ADRENALS: There are no significant adrenal masses. KIDNEYS: Left kidney unremarkable with the exception of a small 1 cm cyst in the inferior pole.. The re is a large malignant-appearing mass in the right kidney occupying the mid and inferior aspects of the right kidney. This mass measures approximately 8.7 cm AP by 8 cm wide by 10 cm craniocaudal. No obvious extension of the tumor into the renal veins. There is a benign cyst in the superior aspect of the right kidney which measures 2.4 by 2.4 cm. Right renal veins appear patent without obvious tu mor invasion. ABDOMINAL AORTA: Calcified but not enlarged. However, there is atherosclerotic involvement and mild aneurysmal dilatation of the left common iliac artery which exhibits maximum external diameter of 1.5 cm. LYMPH NODES: There is no retroperitoneal nor paraaortic adenopathy. ABDOMINAL WALL: No evidence of significant anterior abdominal wall nor inguinal hernia. GI: There is no evidence of bowel obstruction. PELVIS: LYMPH NODES: There is no intrapelvic nor inguinal adenopathy. GI: No evidence of appendicitis.Extensive sigmoid diverticulosis without evidence of obvious acute di verticulitis. No obvious appendicitis. URINARY BLADDER: No calculi nor masses evident REPRODUCTIVE: Moderate prostate enlargement. No obturator adenopathy. OSSEOUS: No significant osseous lesions. IMPRESSION: 1. The main finding here is a large 9 x 10 cm malignant appearing right renal mass occupying most of the mid and inferior aspect of the right kidney, without evidence of right renal vein tumor thrombosi s. No solid lesions seen in the opposite-left kidney. No obvious mass in the urinary bladder. 2. Extensive sigmoid diverticulosis with no evidence of acute diverticulitis. 3. Two hypodensities in the liver which have more the appearance of cysts or hemangiomas than ominous metastatic disease. 4. Bilateral pleural effusions of moderate size. Other findings as above. RADIATION DOSE DELIVERED: 1,570.11mGy.cm Total DLP DATA REPOSITORY: All CT scans at this facility are submitted to the National Radiology Data Registry (NRDR) Dose Index Registry (DIR) with the [employer] (ACR). RADIATION OPTIMIZATION: All CT scans at this facility use at least one of these dose optimization te chniques: automated exposure control; mA and/or kV adjustment per patient size (includes targeted exa ms where dose is matched to clinical indication); or iterative reconstruction.
--- NOTE | 2022-09-17 01:02 | NUR.NOTE ---
Nursing Note: Patient states prior to new diagnosis of atrial fibrillation he was having pain in the back of his head. Described it as an ache, like someone hit me in the back of my head. States that the pain went away after starting the two medications. Patient states difficulty swallowing pills, denies difficulty swallowing food, just lack of appetite. Has 49-year old female room-mate that does not drive who helps with meal preparation and around the house. Patient desires Home Health Services for BP monitoring at home. States his machine keeps giving him error readings. 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
[2022-09-17] MEDS: Normal Saline Flush 10 ML SYR IVP ×5 (03:22→23:46)
[2022-09-17] MEDS: Digoxin 0.125 MG TAB 0.25 MG PO (03:56)
--- NOTE | 2022-09-17 06:16 | NUR.NOTE ---
Nursing Note: Patients roommate Paris called and spoke with patient. Explained that we would ensure patient is discharged with appropriate Home Health services in place and follow-up PCP appointment.
[2022-09-17 06:19] LABS: ALT 527 U/L (16-63); AST 643 U/L (15-37); Anion Gap 12.6 mmol/L (3-11); BUN 78 mg/dL (7-18); CO2 21.4 mmol/L (21.0-32.0); CREATININE 1.7 mg/dL (0.70-1.30); Calcium 8.3 mg/dL (8.5-10.1); Chloride 101 mmol/L (98-107); Estimated GFR 39.75 (mL/min/1.73m2); Glucose 188 mg/dL (74-106); Potassium 4.4 mmol/L (3.5-5.1); Sodium 135 mmol/L (136-145)
[2022-09-17 06:26] LABS: Troponin I 86 ng/L (<or=60)
--- NOTE | 2022-09-17 06:29 | NUR.NOTE ---
Nursing Note: Critical result of Troponin 86, down from 92 yesterday. No call made to .
--- NOTE | 2022-09-17 08:17 | PGE_ITS ---
Date of Service Date of service: 09/17/22 Time of Service: 08:17 Assessment and Plan Assessment and plan (1) Acute congestive heart failure: Status: Acute Assessment and plan: He has new onset CHF as demonstrated by elevate BNP, CXR findings, examination; will get formal echocardiogram and compare to those done at [facility] by Dr. Nash. Per Dr. Huntley, he had normal LV fxn on his echo from last year. 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 Will control his afib w/ titration of metoprolol; I do not think his LFT elevation is d/t his lopressor but rather represents passive hepatic congestion. I have ordered US of his abdomen looking at his liver as well as his kidneys given his JAYLEN Critical care time spent interviewing and examining the patient, reviewing studies, discussing case with patient's nurse and consulting physicians was 60 minutes. Case discussed with Dr. Rowena Huntley. (2) New onset atrial fibrillation: Status: Acute Assessment and plan: use iv and po lopressor for rate control; resume Elquis (3) Elevated troponin: Status: Acute Assessment and plan: will trend; check echo for RWMA; consider stress MPI once afib rate is controlled. (4) Acute kidney injury: Status: Acute Assessment and plan: unclear etiology. I do not know his baseline renal fxn. Will check US of kidneys, treat CHF and monitor renal fxn/urine output (5) Transaminitis: Status: Acute Assessment and plan: probable cardiac hepatopathy from congestion but needs imaging of liver. I have ordered US of abdomen (6) Weight loss, non-intentional: Status: Acute Assessment and plan: I suspect occult malignancy. Once his afib/CHF has been controlled then consider further evaluation w/ CT scan of chest/abdomen/pelvis (w/out iv contrast). Subjective Subjective Interval history since last seen: Patient has known aortic stenosis, followed by Dr. Vitaly Nash at [facility], patient presented to the ED @ [facility] on 09/10 w/ afib w/ RVR (new onset afib) and had a troponin leak. He was started on metoprolol and Eliquis and was advised to be admtitted but once his rate was controlled he opted to go home. His lisinopril an HCTZ were stopped at that time. Since then he has had progressive dyspnea, fatigue. He also notes about 15 lb wt loss over past couple months along w/ decreased appetite. He has had orthopnea and PND along w/ his dyspnea. He can not perform his ADL's at home w/out dyspnea. No chest pain or pressure. Evaluation in the ER revealed him to be in rapid afib along w/ CHF and elevated troponin I but w/out injury pattern.Labs include a CBC that was unremarkable, CMP showed elevated BUN/creatinine 78 and 1.7 along with elevated transaminases with an AST of 643 and ALT of 527. Troponin I levels were elevated at 93, 92, 86. proBNP was elevated at 32,000. Chest x-ray showed bibasilar atelectasis and no pleural effusion. EKG demonstrated rapid atrial fibrillation rate of 128 with occasional PVC no acute ST elevation is some mild T wave abnormalities in limb leads I and aVL as well as V5 V6 he has loss of R waves across the anterior leads consistent with anterior/anterolateral infarct of indeterminate age. These changes were noted on his previous ECG from 09/10/2022. Patient was tried on lopressor iv and po at low doses w/ little effect on his HR, the clothing consultant started him on digoxin thinking that his elevated transaminases may be a hepatitis reaction to the lopressor or Elquis. Patient states that he feels less dyspnea and he denies any CP. Exam Narrative Exam Narrative: Thin frail appearing elderly gentleman in no acute distress not requiring any oxygen he is lying in bed at 30 degrees. Neck: He has JVD to half way up the SCM towards the angle of the mandible. full carotid pulses w/out bruits Lungs: decr. BS at both bases w/ bibasilar rales; no wheezing or rhonchi Heart: irregularly irregular, soft grade II/ over apex c/w MR; I did not appreciate any murmur over the RUSB nor over his carotids. Abdomen: soft, nondistended, no bruits, no palpable masses Extremities: no edema or cyanosis Objective Last Vital Signs Temp 36.5 C 09/17/22 07:48 Pulse 80 09/17/22 07:01 Resp 19 09/17/22 07:01 BP 101/58 L 09/17/22 07:01 Pulse Ox 95 09/17/22 07:01 Laboratory Results - last 24 hr 09/16/22 09/16/22 09/16/22 16:02 16:02 16:02 WBC 5.74 RBC 5.05 Hgb 15.3 Hct 47.1 MCV 93 MCH 30.3 MCHC 32.5 RDW 15.9 H Plt Count 174 MPV 10.8 Immature Gran % 0.3 Neutrophils % 78.8 Lymphocytes % 12.7 Monocytes % 8.0 Eosinophils % 0.0 Basophils % 0.2 Nucleated RBC % 0.0 Absolute Neutrophils 4.52 Absolute Lymphocytes 0.73 L Absolute Monocytes 0.46 Absolute Eosinophils 0.00 Absolute Basophils 0.01 PT 22.1 H INR 2.3 H APTT 26.3 Sodium Cancelled Potassium Cancelled Chloride Cancelled Carbon Dioxide Cancelled Anion Gap Cancelled BUN Cancelled Creatinine Cancelled Est GFR (CKD-EPI 2020) Cancelled Glucose Cancelled Calcium Cancelled Magnesium Cancelled Total Bilirubin Cancelled AST Cancelled ALT Cancelled Alkaline Phosphatase Cancelled Troponin I Cancelled NT-Pro-B Natriuret Pep Cancelled Total Protein Cancelled Albumin Cancelled COVID-19 Source SARS-CoV-2 (PCR) 09/16/22 09/16/22 09/16/22 16:59 18:00 18:45 WBC RBC Hgb Hct MCV MCH MCHC RDW Plt Count MPV Immature Gran % Neutrophils % Lymphocytes % Monocytes % Eosinophils % Basophils % Nucleated RBC % Absolute Neutrophils Absolute Lymphocytes Absolute Monocytes Absolute Eosinophils Absolute Basophils PT INR APTT Sodium 135 L Potassium 5.1 Chloride 101 Carbon Dioxide 17.0 L Anion Gap 17.0 H BUN 68 H Creatinine 1.8 H Est GFR (CKD-EPI 2020) 37.12 Glucose 144 H Calcium 9.2 Magnesium 1.7 L Total Bilirubin 1.1 H AST 202 H ALT 234 H Alkaline Phosphatase 105 Troponin I 93 H* 92 H* NT-Pro-B Natriuret Pep 77866 H Total Protein 6.7 Albumin 3.6 COVID-19 Source Nasal/Nares SARS-CoV-2 (PCR) Negative 09/17/22 09/17/22 05:30 05:53 WBC RBC Hgb Hct MCV MCH MCHC RDW Plt Count MPV Immature Gran % Neutrophils % Lymphocytes % Monocytes % Eosinophils % Basophils % Nucleated RBC % Absolute Neutrophils Absolute Lymphocytes Absolute Monocytes Absolute Eosinophils Absolute Basophils PT INR APTT Sodium 135 L Potassium 4.4 Chloride 101 Carbon Dioxide 21.4 Anion Gap 12.6 H BUN 78 H Creatinine 1.7 H Est GFR (CKD-EPI 2020) 39.75 Glucose 188 H Calcium 8.3 L Magnesium Total Bilirubin AST 643 H ALT 527 H Alkaline Phosphatase Troponin I 86 H* NT-Pro-B Natriuret Pep Total Protein Albumin COVID-19 Source SARS-CoV-2 (PCR)
[2022-09-17] MEDS: Metoprolol 5 MG/5 ML VIAL 2.5 MG IVP (09:05)
[2022-09-17] MEDS: MAGNESIUM SULFATE 2 GM/50 ML BAG IVPB (10:41)
[2022-09-17] MEDS: Furosemide 40 MG/4 ML VIAL IVP ×2 (10:41→16:07)
[2022-09-17] MEDS: Magnesium Gluconate 500 MG TAB PO (10:42)
[2022-09-17] MEDS: Spironolactone 25 MG TAB PO (10:43)
--- NOTE | 2022-09-17 11:13 | PDOC.CMIN ---
- If Service Date Differs Date of service: 09/17/22 Time of Service: 11:14 Care Management Initial Assess REASON FOR HOSPITALIZATION:: CHF, AF PAST MEDICAL HISTORY/PAST SURGICAL HISTORY:: HTN (hypertension), No significant past surgical history PREVIOUS FUNCTIONAL STATUS/SOCIAL/FAMILY SUPPORTS:: Resides in [place], with [place], reports support network of friends and family. ADLs: becomes SOB with exertion. 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 He presented with a somewhat flat affect, but shared worries about current living situation, life stressors and service needs. CM reviewed options, Domingo requested [facility] referral, which was completed: CM connected Rachel of [facility] and Domingo via phone. ADVANCE DIRECTIVES:: [place] as agent; Nany as home, [employer] Has patient been provided with info about the portal/API?: Yes Did the patient sign up for the portal?: No CODE STATUS:: Full Code INSURANCE COVERAGE / FINANCIAL ISSUES:: [employer] CURRENT HOME/COMMUNITY SERVICES/EQUIPMENT:: None currently; service referrals will be completed during this admission. PRIMARY CARE PHYSICIAN:: Radha Amador POTENTIAL DISCHARGE NEEDS:: Evaluations for increased services, follow up appointments. PATIENT/FAMILY EDUCATION NEEDS:: Review discharge instructions, discuss [employer]. ANTICIPATED BARRIERS TO DISCHARGE:: None identified. TRANSPORTATION:: Via private vehicle with a friend. PLAN:: Domingo continues to be closely monitored and treated at this time. Anticipate he will return home, follow up with community providers and follow discharge plan of care. CM continues to follow.
--- NOTE | 2022-09-17 11:42 | PHA.REVIEW2 ---
Pharmacy Admission Review - Admission Clinical Review (Last Reviewed 09/16/22 @ 15:32 by Christian Ma MD) Acute congestive heart failure (Acute) Weight loss, non-intentional (Acute) Transaminitis (Acute) SOB (shortness of breath) (Acute) New onset atrial fibrillation (Acute) Elevated troponin (Acute) Acute kidney injury (Acute) No Known Allergies Allergy (Unverified 09/10/22 15:11) Resuscitation Status Full Code Height 5 ft 6 in Weight 46.7 kg - Renal Dosing Renal Dosing: BUN 78 mg/dL (7-18) H 09/17/22 05:53 Creatinine 1.7 mg/dL (0.70-1.30) H 09/17/22 05:53 Medications needing adjustments: Reviewed (crcl = 22. current meds OK, no adjustments needed. ?adjust eliquis when restarted) - Anticoagulation Anticoagulation: Hgb 15.3 g/dL (13.5-17.5) 09/16/22 16:02 Hct 47.1 % (40.0-50.0) 09/16/22 16:02 Plt Count 174 10^3/uL (130-400) 09/16/22 16:02 INR 2.3 (0.9-1.1) H 09/16/22 16:02 Creatinine 1.7 mg/dL (0.70-1.30) H 09/17/22 05:53 DVT Prophylaxis: N/A Therapeutic Anticoagulation: Reviewed (apixiban on hold for now pending recommendations from Dr. Kinsey re: renal mass, will possibly restart later this evening) Medications: Apixaban (recently started on apixiban 5 mg BID. indication: afib --> recommend restarting at 2.5 mg BID (>79 y/o, weight <60 kg, scr >1.5)) - Opiate Usage Evaluate Pain Scale/Pains Meds: N/A - Relevant Labs Sodium 135 mmol/L (136-145) L 09/17/22 05:53 Potassium 4.4 mmol/L (3.5-5.1) 09/17/22 05:53 Chloride 101 mmol/L (98-107) 09/17/22 05:53 Magnesium 1.7 mg/dL (1.8-2.4) L 09/16/22 16:59 Electrolytes, C-Reactive P, ESR: Reviewed (magnesium = 1.7, 2g IV given today. mag gluconate 500 mg daily started) - DM Control DM Control: Glucose 188 mg/dL (74-106) H 09/17/22 05:53 DM Control: Reviewed - Cardiac Review Cardiac Review: Troponin I 86 ng/L (<or=60) H* 09/17/22 05:30 NT-Pro-B Natriuret Pep 87035 pg/mL (<300) H 09/16/22 16:59 BP, HR, EF%: Reviewed (diuresing - lasix 40 mg IV, spironolactone 25 mg given this morning. Metoprolol restarted (25 mg Q8h. home dose = 12.5 mg BID). Digoxin given Q6h yesterday, now dc'd) - Qtc Review QTc: Reviewed (QTc = 465) - IV to PO Switch IV Medications: N/A - Home Meds Home Med List reviewed: Reviewed Relevent Home Meds Not ordered & why?: apixiban held pending urology decision, ?restart today - Current meds Current Medication Order Review: Reviewed
--- NOTE | 2022-09-17 12:05 | CCONE_ITS ---
Date of service: 09/17/22 Time of Service: 12:05 Assessment and Plan Assessment and plan (1) Acute congestive heart failure: Status: Acute Assessment and plan: Patient has congestive heart failure and new left ventricular dysfunction. It is possible that the latter is on the basis of atrial fibrillation with uncontrolled rate ( tachymyopathy) Gentle diuresis is advised (2) New onset atrial fibrillation: Status: Acute Assessment and plan: Duration of the dysrhythmia is not known. I would concentrate on rate control here in the hospital. Metoprolol tartrate could be used acutely but eventually he should be transitioned to either metoprolol succinate, carvedilol, or bisoprolol given his LV dysfunction. Eliquis should be continued for rate control (3) A-fib: Status: Chronic Assessment and plan: As above (4) Aortic stenosis: Status: Chronic Assessment and plan: Await follow-up echocardiogram History of Present Illness Narrative: This is an 81-year-old man who presented to the hospital with shortness of breath. He reports that he was well until approximately 2 weeks prior to adm ission when he began to have difficulty breathing. This was present both at rest and with activity. He came to the emergency room a couple of days ago and was noted to be in atrial fibrillation which was a new finding. Medications were adjusted with discontinuation of lisinopril and hydrochlorothiazide and initiation of Eliquis 5 mg twice daily and Lopressor 25 mg twice a day. He may have seen primary care subsequently and his Lopressor was reduced to 12.5 mg twice daily. He continued to have difficulty breathing and came back to the emergency room yesterday where he was evaluated and admitted. Findings are consistent with decompensated heart failure. He had a [id number] ultrasound done this morning which shows left ventricular dysfunction which is new Patient is an established patient with Dr. Nash in [place]. He has moderate aortic stenosis documented by echocardiogram back in 2020. At that time his EF was 60% with normal wall motion. . Peak aortic valve gradient was 32, mean 18, calculated aortic valve area of 1 cm?. There is mild to moderate aortic regurgitation and his right ventricular systolic pressure was elevated at 61 mmHg. EKG on presentation showed atrial fibrillation with an uncontrolled rate, premature ventricular contraction, poor R wave progression and probable left ventricular hypertrophy with ST-T abnormality Review of Systems Cardiovascular Cardiovascular: Reports as per HPI, Denies chest pain, Denies leg edema, Reports dyspnea, Reports dyspnea on exertion and Reports orthopnea Respiratory Respiratory: Reports dyspnea and Reports dyspnea on exertion PFSH All Active Problems (Updated 09/17/22 @ 12:11 by Rowena Huntley MD) Aortic stenosis (Chronic) Acute congestive heart failure (Acute) Weight loss, non-intentional (Acute) Transaminitis (Acute) SOB (shortness of breath) (Acute) New onset atrial fibrillation (Acute) Elevated troponin (Acute) A-fib (Chronic) Acute kidney injury (Acute) Medical History HTN (hypertension) Surgical History No significant past surgical history Social History Smoking/Tobacco Use Status: Never Smoking risk assessment performed?: Yes Alcohol Intake: never Drug use: Never Substance use type: does not use Do you feel safe at home: Yes Do you feel safe in your relationship?: Yes Exam Const Other: Thin frail appearing elderly man no acute distress Neck Other: Unable to assess JVP carotid pulsations are grossly normal no bruits Resp Other: Diminished breath sounds at the bases, crackles Cardio Other: Irregularly irregular mildly tachycardic heart rate about 100 2/6 systolic ejection quality murmur Extrem Other: No significant peripheral edema Results Last Vital Signs Temp 36.5 C 09/17/22 07:48 Pulse 70 09/17/22 10:01 Resp 17 09/17/22 10:01 BP 105/62 09/17/22 10:01 Pulse Ox 95 09/17/22 10:01 Labs Result diagrams: 09/16/22 16:02 09/17/22 05:53 Labs: Laboratory Results - last 24 hr 09/16/22 09/16/22 09/16/22 16:02 16:02 16:02 WBC 5.74 RBC 5.05 Hgb 15.3 Hct 47.1 MCV 93 MCH 30.3 MCHC 32.5 RDW 15.9 H Plt Count 174 MPV 10.8 Immature Gran % 0.3 Neutrophils % 78.8 Lymphocytes % 12.7 Monocytes % 8.0 Eosinophils % 0.0 Basophils % 0.2 Nucleated RBC % 0.0 Absolute Neutrophils 4.52 Absolute Lymphocytes 0.73 L Absolute Monocytes 0.46 Absolute Eosinophils 0.00 Absolute Basophils 0.01 PT 22.1 H INR 2.3 H APTT 26.3 Sodium Cancelled Potassium Cancelled Chloride Cancelled Carbon Dioxide Cancelled Anion Gap Cancelled BUN Cancelled Creatinine Cancelled Est GFR (CKD-EPI 2020) Cancelled Glucose Cancelled Calcium Cancelled Magnesium Cancelled Total Bilirubin Cancelled AST Cancelled ALT Cancelled Alkaline Phosphatase Cancelled Troponin I Cancelled NT-Pro-B Natriuret Pep Cancelled Total Protein Cancelled Albumin Cancelled COVID-19 Source SARS-CoV-2 (PCR) 09/16/22 09/16/22 09/16/22 16:59 18:00 18:45 WBC RBC Hgb Hct MCV MCH MCHC RDW Plt Count MPV Immature Gran % Neutrophils % Lymphocytes % Monocytes % Eosinophils % Basophils % Nucleated RBC % Absolute Neutrophils Absolute Lymphocytes Absolute Monocytes Absolute Eosinophils Absolute Basophils PT INR APTT Sodium 135 L Potassium 5.1 Chloride 101 Carbon Dioxide 17.0 L Anion Gap 17.0 H BUN 68 H Creatinine 1.8 H Est GFR (CKD-EPI 2020) 37.12 Glucose 144 H Calcium 9.2 Magnesium 1.7 L Total Bilirubin 1.1 H AST 202 H ALT 234 H Alkaline Phosphatase 105 Troponin I 93 H* 92 H* NT-Pro-B Natriuret Pep 68744 H Total Protein 6.7 Albumin 3.6 COVID-19 Source Nasal/Nares SARS-CoV-2 (PCR) Negative 09/17/22 09/17/22 05:30 05:53 WBC RBC Hgb Hct MCV MCH MCHC RDW Plt Count MPV Immature Gran % Neutrophils % Lymphocytes % Monocytes % Eosinophils % Basophils % Nucleated RBC % Absolute Neutrophils Absolute Lymphocytes Absolute Monocytes Absolute Eosinophils Absolute Basophils PT INR APTT Sodium 135 L Potassium 4.4 Chloride 101 Carbon Dioxide 21.4 Anion Gap 12.6 H BUN 78 H Creatinine 1.7 H Est GFR (CKD-EPI 2020) 39.75 Glucose 188 H Calcium 8.3 L Magnesium Total Bilirubin AST 643 H ALT 527 H Alkaline Phosphatase Troponin I 86 H* NT-Pro-B Natriuret Pep Total Protein Albumin COVID-19 Source SARS-CoV-2 (PCR)
--- NOTE | 2022-09-17 13:38 | UCONE_ITS ---
Date of service: 09/17/22 Time of Service: 12:10 Assessment and Plan Assessment and plan (1) Renal mass: Status: Acute Assessment and plan: The mass appears solid in nature. As long as his serum creatinine can handle IV contrast, I would recommend a CT of the chest abdomen and pelvis to better joellen cterize the mass, its local extent and any metastatic disease. As long as there is no evidence of metastatic disease, a nephrectomy is generally recommended. Partial nephrectomies can be utilized to preserve functional renal tissue, but given the size of the lesion, radical nephrectomy is usually performed. If there is metastatic disease, the benefit of nephrectomy is controversial especially since he is not having flank pain or hematuria. With his cardiac status, I am not certain that he would be a surgical candidate here at our facility. We may want to make a referral to a larger center that can offer a laparoscopic procedure. History of Present Illness History of Present Illness Chief Complaint: Right renal mass Narrative: This is an 81-year-old gentleman who is currently hospitalized for atrial fibrillation and congestive heart failure. He has been under the care [place] [facility] During this hospitalization, liver enzymes. He then underwent an abdominal ultrasound which identified a solid right renal mass. I have been asked to see him for this new finding. The patient does not recall ever having any other type of urologic evaluation. He does not recall having any previous abdominal imaging. He has no gross hematuria. He has no flank pain. He has had weight loss and loss of appetite. He has not had any previous urologic surgery. He has no known kidney stones. Review of Systems Narrative: No fevers or chills No vision change or dysphasia No diabetes or thyroid dysfunction No hemoptysis Atrial fibrillation. No chest pain No nausea, vomiting, hepatitis, ulcers, jaundice No seizures, strokes or peripheral neuropathy No bleeding disorders or anemia No gout PFSH All Active Problems (Updated 09/17/22 @ 13:44 by Ousmane Kinsey MD) Renal mass (Acute) Aortic stenosis (Chronic) Acute congestive heart failure (Acute) Weight loss, non-intentional (Acute) Transaminitis (Acute) SOB (shortness of breath) (Acute) New onset atrial fibrillation (Acute) Elevated troponin (Acute) A-fib (Chronic) Acute kidney injury (Acute) Medical History HTN (hypertension) Surgical History No significant past surgical history Social History Smoking/Tobacco Use Status: Never Smoking risk assessment performed?: Yes Alcohol Intake: never Drug use: Never Substance use type: does not use Do you feel safe at home: Yes Do you feel safe in your relationship?: Yes Exam Narrative Exam Narrative: He is an older gentleman in no obvious distress His vital signs are documented elsewhere There is no supraclavicular adenopathy His chest wall motion is normal. He is not short of breath at rest. His abdomen is soft. There is no CVA tenderness. I do not appreciate any abdominal mass He is awake, alert and oriented. I reviewed his renal ultrasound on the PACS system. I do not see any hydronephrosis, but there is a solid-appearing mass on the right kidney. The mass measures over 9 cm in size. Results Last Vital Signs Temp 36.5 C 09/17/22 07:48 Pulse 70 09/17/22 10:01 Resp 17 09/17/22 10:01 BP 105/62 09/17/22 10:01 Pulse Ox 95 09/17/22 10:01 Labs Result diagrams: 09/16/22 16:02 09/17/22 05:53 Labs: Laboratory Results - last 24 hr 09/16/22 09/16/22 09/16/22 16:02 16:02 16:02 WBC 5.74 RBC 5.05 Hgb 15.3 Hct 47.1 MCV 93 MCH 30.3 MCHC 32.5 RDW 15.9 H Plt Count 174 MPV 10.8 Immature Gran % 0.3 Neutrophils % 78.8 Lymphocytes % 12.7 Monocytes % 8.0 Eosinophils % 0.0 Basophils % 0.2 Nucleated RBC % 0.0 Absolute Neutrophils 4.52 Absolute Lymphocytes 0.73 L Absolute Monocytes 0.46 Absolute Eosinophils 0.00 Absolute Basophils 0.01 PT 22.1 H INR 2.3 H APTT 26.3 Sodium Cancelled Potassium Cancelled Chloride Cancelled Carbon Dioxide Cancelled Anion Gap Cancelled BUN Cancelled Creatinine Cancelled Est GFR (CKD-EPI 2020) Cancelled Glucose Cancelled Calcium Cancelled Magnesium Cancelled Total Bilirubin Cancelled AST Cancelled ALT Cancelled Alkaline Phosphatase Cancelled Troponin I Cancelled NT-Pro-B Natriuret Pep Cancelled Total Protein Cancelled Albumin Cancelled COVID-19 Source SARS-CoV-2 (PCR) 09/16/22 09/16/22 09/16/22 16:59 18:00 18:45 WBC RBC Hgb Hct MCV MCH MCHC RDW Plt Count MPV Immature Gran % Neutrophils % Lymphocytes % Monocytes % Eosinophils % Basophils % Nucleated RBC % Absolute Neutrophils Absolute Lymphocytes Absolute Monocytes Absolute Eosinophils Absolute Basophils PT INR APTT Sodium 135 L Potassium 5.1 Chloride 101 Carbon Dioxide 17.0 L Anion Gap 17.0 H BUN 68 H Creatinine 1.8 H Est GFR (CKD-EPI 2020) 37.12 Glucose 144 H Calcium 9.2 Magnesium 1.7 L Total Bilirubin 1.1 H AST 202 H ALT 234 H Alkaline Phosphatase 105 Troponin I 93 H* 92 H* NT-Pro-B Natriuret Pep 80772 H Total Protein 6.7 Albumin 3.6 COVID-19 Source Nasal/Nares SARS-CoV-2 (PCR) Negative 09/17/22 09/17/22 05:30 05:53 WBC RBC Hgb Hct MCV MCH MCHC RDW Plt Count MPV Immature Gran % Neutrophils % Lymphocytes % Monocytes % Eosinophils % Basophils % Nucleated RBC % Absolute Neutrophils Absolute Lymphocytes Absolute Monocytes Absolute Eosinophils Absolute Basophils PT INR APTT Sodium 135 L Potassium 4.4 Chloride 101 Carbon Dioxide 21.4 Anion Gap 12.6 H BUN 78 H Creatinine 1.7 H Est GFR (CKD-EPI 2020) 39.75 Glucose 188 H Calcium 8.3 L Magnesium Total Bilirubin AST 643 H ALT 527 H Alkaline Phosphatase Troponin I 86 H* NT-Pro-B Natriuret Pep Total Protein Albumin COVID-19 Source SARS-CoV-2 (PCR)
[2022-09-17] MEDS: Omnipaque 350 MG/ML 500 ML BTL-Imaging package IJ (15:31)
[2022-09-17] MEDS: Metoprolol 25 MG TAB PO ×2 (16:08→23:47)
[2022-09-17] MEDS: Apixaban 5 MG TAB PO (18:43)
[2022-09-18] VITALS (7 sets, daily range): BP systolic 106–124; BP diastolic 60–70; PULSE 65–98; RESP 14–20; TEMP 36–36.5; O2SAT 92–97
--- NOTE | 2022-09-18 01:29 | NUR.NOTE ---
Nursing Note: Pt transferred to From ICU bed 222 to Room 231 on Med/surg.VSS. Verbal Report received from Leandro Jackson RN. Pt ambulated to wheel chair without any issues. Pt transported to room 231 via wheel chair. Pt settled into 231. Oriented pt to room, call ye, bathroom, TV, and phone. Pt in stable condition during transport. VSS
[2022-09-18 06:47] LABS: Magnesium 2.5 mg/dL (1.8-2.4)
[2022-09-18 06:53] LABS: BUN 66 mg/dL (7-18); CREATININE 1.5 mg/dL (0.70-1.30); Calcium 8.5 mg/dL (8.5-10.1); Chloride 101 mmol/L (98-107); Estimated GFR 46.19 (mL/min/1.73m2); Glucose 92 mg/dL (74-106); Potassium 3.6 mmol/L (3.5-5.1); Sodium 136 mmol/L (136-145)
[2022-09-18 07:01] LABS: Troponin I 105 ng/L (<or=60)
[2022-09-18] MEDS: Normal Saline Flush 10 ML SYR IVP ×3 (07:53→19:58)
[2022-09-18] MEDS: Spironolactone 25 MG TAB PO (07:53)
[2022-09-18] MEDS: Furosemide 40 MG/4 ML VIAL IVP ×2 (07:53→15:28)
[2022-09-18] MEDS: Metoprolol 25 MG TAB PO ×3 (07:53→19:56)
[2022-09-18] MEDS: Apixaban 5 MG TAB PO ×2 (07:53→19:57)
--- NOTE | 2022-09-18 09:05 | CMPROGNOTE_ITS ---
- If Service Date Differs Date of service: 09/18/22 Time of Service: 09:05 Care Management Progress Note S/O: Domingo transitioned to the Med/Surg floor from the ICU. He requested this life insurance underwriter outreach to family, for support at home, as he stated natural supports are limited. SUSAN spoke with Paris who was adamant that no family contact should be permitted stating you don't invite the enemy to eat at your table. CM reviewed patient choice and that this would be an issue Domingo and her w sheld need to discuss but the focus right now should be on lowering stress while Domingo focuses on his health. Paris contradicted Domingo's statements sharing that she could access [facility] bus for transportation and manage needs at home in his absence. CM did not share information with Paris regarding Domingo's request to outreach to family. CM spoke with Domingo, highlighting Paris's statements about contact with his family. Domingo stated you better hold off then. CM shared that the request had been made, but agreed to update per his wishes, assuring that this was what he wanted. SUSAN spoke with Sabino after she met with Domingo; she reported [facility] referral would be completed. Anticipate Rachel will follow along, to continue to address service gaps and connection. Domingo stated he is trying to switch his oil-based heat to gas, he stated [employer] quoted $7000 for this work to be completed. SUSAN inquired as to fuel assistance which Domingo stated was not previously successful. He shared concerns about affording oil heat this winter. He also shared concerns about getting his checks from [employer] and depositing at [employer]. He told Rachel silveira ARUNA his neighbor Supa would help with this. Per Rachel's reports, most of the concerns he raised with this life insurance underwriter, he had started to figure out on his own. Rachel reported he said he didn't want to stay on the phone if he wasn't going to get help. SUSAN encouraged Rachel to meet with him in person. Per MD, Domingo has a new renal mass; undetermined plan at this time. Dr. Dougherty will fully discuss options with Domingo today, per his report. SUSAN will continue to support Domingo during this difficult time and support navigation of choices regarding treatment and service connection. If appropriate , anticipate Palliative Consult will be ordered as well. A: 81 year old male admitted to [facility] 09/16/22 for CHF, AF P: Domingo continues to be closely monitored and treated at this time. Anticipate he will return home, follow up with community providers and follow discharge plan of care; though treatment and discharge plan are uncertain at this time. CM continues to follow.
--- NOTE | 2022-09-18 10:52 | CHAPLAIN ---
Domingo was in bed, tucked in because he was cold. He'd gotten a warm blanket but said he'd like one for his legs and feet, so I got that for him. Domingo said he's been in touch with family. I will continue to visit.
--- NOTE | 2022-09-18 16:33 | PGE_ITS ---
Date of Service Date of service: 09/18/22 Time of Service: 16:33 Assessment and Plan Assessment and plan (1) Acute congestive heart failure: Status: Acute Assessment and plan: HFREF echo demonstrates the following: Normal left ventricular wall thickness and chamber size.? Estimated ejection fraction is 20 to 25% with severe global hypokinesis The right ventricle is not well visualized Left atrium is mildly dilated.? Right atrial size is normal The aortic valve is sclerotic and probably trileaflet.? There is mild to moderate aortic regurgitation.? Mean aortic valve gradient is 12 mmHg.? Low-flow low gradient aortic stenosis is suspected Mildly thickened mitral leaflets, mild mitral annular calcification.? Severe mitral regurgitation Normal tricuspid valve with moderate regurgitation.? 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 repeat BMP and BNP tomorrow. arrange outpatient cardiology follow up with Dr. Huntley on discharge. Professional time spent interviewing and examining patient, discussion of goals of care with hospital team (care management, nursing and consulting professionals) was 30 minutes. (2) New onset atrial fibrillation: Status: Acute Assessment and plan: titrate lopressor. He indicated to me that he has to crush his meds and does not want capsules or tablets that he can not crush (3) Elevated troponin: Status: Acute Assessment and plan: likely demand ischemia from his rapid afib; however, in light of his cardiomyopathy, he should have stress MPI prior to any nephrectomy. I will defer to Dr. Huntley to determine need and timing of any stress test (4) Renal mass: Status: Acute Assessment and plan: follow up w/ Dr. Kinsey locally. patient is not decided yet on what he wants to do (5) Acute kidney injury: Status: Acute Assessment and plan: likely d/t congestion from CHF (6) Transaminitis: Status: Acute Assessment and plan: again probably passive congestion. no structural abnormalities on US. Will repeat labs (7) Weight loss, non-intentional: Status: Acute Subjective Subjective Interval history since last seen: Patient states that his breathing is so much better. No cough or CP and no dyspnea. No leg/pedal edema. Domingo and I had a detailed discussion about his medical problems. 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 He has expressed concerns about transportation to [facility] for urology and even transportation to [facility]. He indicated that Dr. Kinsey explained to him that he does not need to emergently do anything about this tumor and that he should take of his other medical conditions first, i.e., atrial fibrillation and CHF. I told him that I agree, that these are the immediate conditions that need to be dealt with and before contemplating any surgery he would need a thorough evaluation by cardiology. I also explained that renal tumors can be treated medically. I also brought up possible Palliative medicine could see him to help him set priorities and goals of care. At present he seems more focused on getting back home. I told him that the family day care provider could help with getting transportation home. I think that he will probably be ready for discharge home tomorrow. Exam Narrative Exam Narrative: Jorgito?oise alert sitting up in bed with no dyspnea. Neck veins are flat Lungs are clear to auscultation Heart is irregularly irregular but under better control. Soft murmur over the apex no thrill or heave Abdomen is flat soft and nontender Legs and feet without edema Objective Last Vital Signs Temp 36.5 C 09/18/22 15:19 Pulse 91 H 09/18/22 15:19 Resp 20 09/18/22 15:19 BP 124/70 09/18/22 15:19 Pulse Ox 95 09/18/22 15:19 Laboratory Results - last 24 hr 09/18/22 09/18/22 05:51 05:51 Sodium 136 Potassium 3.6 Chloride 101 Carbon Dioxide 27.0 Anion Gap 8.0 BUN 66 H Creatinine 1.5 H Est GFR (CKD-EPI 2020) 46.19 Glucose 92 Calcium 8.5 Magnesium 2.5 H Troponin I 105 H*
[2022-09-19] VITALS (10 sets, daily range): BP systolic 93–120; BP diastolic 53–68; PULSE 54–140; RESP 16–18; TEMP 36.4–37; O2SAT 95–98
[2022-09-19 07:39] LABS: ALT 308 U/L (16-63); AST 136 U/L (15-37); Albumin 3.2 g/dL (3.4-5.0); Alkaline Phosphatase 108 U/L (46-116); Anion Gap 5.8 mmol/L (3-11); BUN 55 mg/dL (7-18); Bilirubin, Direct 0.3 mg/dL (0.0-0.2); CO2 31.2 mmol/L (21.0-32.0); CREATININE 1.2 mg/dL (0.70-1.30); Calcium 8.7 mg/dL (8.5-10.1); Chloride 100 mmol/L (98-107); Estimated GFR 60.38 (mL/min/1.73m2); Glucose 102 mg/dL (74-106); NT-proBNP 23289 pg/mL (<300); Potassium 3.3 mmol/L (3.5-5.1); Sodium 137 mmol/L (136-145); Total Protein 5.8 g/dL (6.4-8.2)
[2022-09-19] MEDS: Spironolactone 25 MG TAB PO (08:26)
[2022-09-19] MEDS: Empaglifozin 10 MG TAB PO (08:27)
[2022-09-19] MEDS: Lisinopril 5 MG TAB PO (08:27)
[2022-09-19] MEDS: Potassium Chloride 10 MEQ CAPCR 40 MEQ PO (08:27)
[2022-09-19] MEDS: Apixaban 5 MG TAB PO ×2 (08:27→19:11)
[2022-09-19] MEDS: Metoprolol CR 100 MG TABCR PO (08:27)
[2022-09-19] MEDS: Torsemide 20 MG TAB PO (08:27)
[2022-09-19 09:03] LABS: Lab Add On Test DONE
[2022-09-19 09:11] LABS: Magnesium 2.3 mg/dL (1.8-2.4)
[2022-09-19 12:19] LABS: Potassium 3.8 mmol/L (3.5-5.1)
--- NOTE | 2022-09-19 13:26 | CMPROGNOTE_ITS ---
- If Service Date Differs Date of service: 09/19/22 Time of Service: 13:26 Care Management Progress Note S/O: Domingo remains inpatient, he is looking forward to returning home. Dr. Kinsey (Urologist) met with Domingo today and will coordinate outpatient follow up with/referral to Dr. Pavan Foster at [facility] for surgical intervention of renal mass, as Domingo is verbalizing that he would like the mass removed. provided RCT information to Domingo and reviewed outreach once [facility] calls him with an outpatient appointment-to call [facility] to arrange transportation. CM continues to support discharge planning considerations. A: 81 year old male admitted to [facility] 09/16/22 for CHF, AF P: Domingo continues to be closely monitored and treated at this time. Anticipate he will return home, follow up with community providers and follow discharge plan of care. Referral to [facility] and [facility]UNA completed with review of needs including transportation to medical appointments, food insecurity, intermediate accountant care planning and fuel assistance. [facility] service reviewed and resource provided. Outpatient follow up with [facility] will be coordinated by Urology. Anticipate Palliative will meet with Domingo today, as well. CM continues to follow.
--- NOTE | 2022-09-19 14:42 | W.PM.PROGNOT ---
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 It certainly could be a urothelial cell carcinoma, but with no gross or microscopic blood in the urine, I believe renal cell carcinoma is more likely. We discussed a few different approaches. Given the size of the mass, if it is a renal cell carcinoma, he would likely need a radical nephrectomy. If the mass is a urothelial cell carcinoma, a nephro ureterectomy is generally recommended. Systemic chemotherapy is often used with high grade urothelial cell carcinoma as well. A biopsy done by interventional radiology could help differentiate the two. If he is not interested in invasive treatments, we could follow a palliative care approach to help keep the patient comfortable and manage symptoms. At this point, he has no flank pain or gross hematuria whatsoever. His biggest symptom is weight loss. After our discussion today, he tells me that he is interested in looking into surgical approaches. I explained that these types of surgeries are most often done laparoscopically. He would not be a candidate to have his surgery done here at our hospital, but a referral down to Dr. Pavan Foster at [facility] would put this gentleman in great hands. I will go ahead and make the referral through our outpatient EMR. I told the patient to expect a phone call from [facility] in a week or so to arrange a consultation. We will have the patient's x-ray studies pushed down to [facility] as well. Subjective Subjective Interval history since last seen: The patient is hoping to be discharged today. I had spoken with the patient on Friday regarding the CT of the chest abdomen and pelvis. The right renal mass is quite large and solid, but there is no evidence of metastatic disease. Exam Narrative Exam Narrative: He is an up at the bedside His vital signs are documented elsewhere He is awake and alert Objective Last Vital Signs Temp 36.5 C 09/19/22 07:32 Pulse 140 H 09/19/22 08:20 Resp 16 09/19/22 07:32 BP 120/68 09/19/22 07:32 Pulse Ox 97 09/19/22 07:32 Laboratory Results - last 24 hr 09/19/22 09/19/22 09/19/22 05:46 05:46 05:46 Sodium 137 Potassium 3.3 L Chloride 100 Carbon Dioxide 31.2 Anion Gap 5.8 BUN 55 H Creatinine 1.2 Est GFR (CKD-EPI 2020) 60.38 Glucose 102 Calcium 8.7 Magnesium 2.3 Total Bilirubin 1.0 Conjugated Bilirubin 0.3 H AST 136 H ALT 308 H Alkaline Phosphatase 108 NT-Pro-B Natriuret Pep 95907 H Total Protein 5.8 L Albumin 3.2 L Add-On Test Request DONE 09/19/22 11:40 Sodium Potassium 3.8 Chloride Carbon Dioxide Anion Gap BUN Creatinine Est GFR (CKD-EPI 2020) Glucose Calcium Magnesium Total Bilirubin Conjugated Bilirubin AST ALT Alkaline Phosphatase NT-Pro-B Natriuret Pep Total Protein Albumin Add-On Test Request
--- NOTE | 2022-09-19 18:38 | PGE_ITS ---
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 Patient intolerant of long-acting metoprolol - converted back to lopressor. Continue spironolactone, torsemide, lisinopril, jardiance. (2) New onset atrial fibrillation: Status: Acute Assessment and plan: RVR this am. The patient cannot swallow large pills/capsules and had a hard time with toprol XL today. Transitioned back to lopressor. Monitor on tele. Continue apixaban. (3) Elevated troponin: Status: Acute Assessment and plan: Agree that this is demand ischemia in setting of rapid afib. Would benefit from outpatient stress MPI prior to nephrectomy. (4) Renal mass: Status: Acute Assessment and plan: Patient has been evaluated by Dr Kinsey and is interested in exploring surgical options. Dr Kinsey is arranging outpatient [facility] follow up for further workup. Palliative care consulted. (5) Acute kidney injury: Status: Acute Assessment and plan: Cr better today. Suspect cardiorenal syndrome. Continue to monitor. (6) Transaminitis: Status: Acute Assessment and plan: Agree that this is likely due to congestive hepatopathy. US abdomen negative. (7) Weight loss, non-intentional: Status: Acute Assessment and plan: Possible cardiac cachexia, but does have a renal mass which is likely malignant. Needs malignancy workup which is being set up by urology. (8) DVT prophylaxis: Status: Acute Assessment and plan: On therapeutic apixaban (9) Discharge planning issues: Status: Acute Assessment and plan: Full code Speech, palliative care consulted. Anticipate discharge home tomorrow with outpatient stress test, cardiac event recorder, urology follow [place] [facility]. Subjective Subjective Interval history since last seen: Mr Case states that he has a hard time swallowing big pills and capsules and had difficulty with choking on them this morning. He did finally get them down. He also has difficulty with food unless it is soft. Did not feel his episode of rapid Afib this morning into 150s. Denies dizziness, chest pain, shortness of breath, nausea, palpitations. Exam Narrative Exam Narrative: General: Pleasant elderly male who is sitting up in a chair on RA, A&Ox3, NAD HEENT: EOMI, MMM Heart: irregularly irregular rhythm, no m/r/g Lungs: CTAB Abdomen: soft, nontender, nondistended Extremities: no edema Objective Last Vital Signs Temp 37 C 09/19/22 18:04 Pulse 98 H 09/19/22 17:42 Resp 18 09/19/22 15:15 BP 95/54 L 09/19/22 15:15 Pulse Ox 96 09/19/22 15:15 Laboratory Results - last 24 hr 09/19/22 09/19/22 09/19/22 05:46 05:46 05:46 Sodium 137 Potassium 3.3 L Chloride 100 Carbon Dioxide 31.2 Anion Gap 5.8 BUN 55 H Creatinine 1.2 Est GFR (CKD-EPI 2020) 60.38 Glucose 102 Calcium 8.7 Magnesium 2.3 Total Bilirubin 1.0 Conjugated Bilirubin 0.3 H AST 136 H ALT 308 H Alkaline Phosphatase 108 NT-Pro-B Natriuret Pep 22085 H Total Protein 5.8 L Albumin 3.2 L Add-On Test Request DONE 09/19/22 11:40 Sodium Potassium 3.8 Chloride Carbon Dioxide Anion Gap BUN Creatinine Est GFR (CKD-EPI 2020) Glucose Calcium Magnesium Total Bilirubin Conjugated Bilirubin AST ALT Alkaline Phosphatase NT-Pro-B Natriuret Pep Total Protein Albumin Add-On Test Request
[2022-09-19] MEDS: Normal Saline Flush 10 ML SYR IVP (19:38)
[2022-09-20 05:39] VITALS: BP 108/65; PULSE 100; RESP 18; TEMP 36.2; O2SAT 95
[2022-09-20 06:02] LABS: Abs Immature Grans 0.01 10^3/uL (0.0-0.06); Absolute Basophil Count 0.01 10^3/uL (0.0-0.2); Absolute Eosinophil Count 0.05 10^3/uL (0.0-0.7); Absolute Lymphocyte Count 0.82 10^3/uL (1.2-3.4); Absolute Neutrophil Count 4.86 10^3/uL (1.2-6.7); Basophils % 0.2; Eosinophils % 0.8; HCT 41.9 % (40.0-50.0); HGB 13.8 g/dL (13.5-17.5); Immature Grans % 0.2; Lymphocytes % 12.7; MCH 30.2 pg (27.0-33.0); MCHC 32.9 % (32.0-36.0); MCV 92 fL (80-95); MPV 10.9 fL (8.0-11.0); Monocytes % 10.9; Neutrophils % 75.2; Platelet Count 128 10^3/uL (130-400); RBC 4.57 10^6/uL (4.36-5.78); RDW 15.1 % (11.8-14.1); RDW-SD 50.4 fL; WBC 6.45 10^3/uL (4.4-10.8)
[2022-09-20 06:28] LABS: Anion Gap 5.3 mmol/L (3-11); BUN 46 mg/dL (7-18); CO2 30.7 mmol/L (21.0-32.0); CREATININE 1.3 mg/dL (0.70-1.30); Calcium 8.6 mg/dL (8.5-10.1); Chloride 99 mmol/L (98-107); Estimated GFR 54.85 (mL/min/1.73m2); Glucose 108 mg/dL (74-106); Magnesium 2.3 mg/dL (1.8-2.4); Potassium 3.7 mmol/L (3.5-5.1); Sodium 135 mmol/L (136-145)
[2022-09-20 07:06] VITALS: PULSE 85
[2022-09-20 07:08] VITALS: BP 93/57; PULSE 78; RESP 18; TEMP 36.4; O2SAT 96
[2022-09-20] MEDS: Torsemide 20 MG TAB PO (08:40)
[2022-09-20] MEDS: Apixaban 5 MG TAB PO (08:40)
[2022-09-20] MEDS: Empaglifozin 10 MG TAB PO (08:40)
[2022-09-20] MEDS: Spironolactone 25 MG TAB PO (08:40)
[2022-09-20] MEDS: Lisinopril 5 MG TAB PO (08:40)
[2022-09-20 11:09] VITALS: BP 114/67; PULSE 58; RESP 18; TEMP 36.5; O2SAT 97
--- NOTE | 2022-09-20 12:49 | SP_ITS ---
Date of service: 09/20/22 Time of Service: 12:10 Subjective Clinical (Bedside) Swallow Evaluation Speech Language Pathology Patient referred for Clinical Swallow Evaluation from Dr Ra olivera observed and reported difficulty with pills which resulted in sub-optimal format (fast-acting) of medication treatment due to need for crushing pills. VILMA Lane was contacted while sitting upright in bedside chair, finishing his lunch. He was awake, alert, and able to communicate his wants and needs effectively. He was reluctant to participate in assessment activities I don't want to mess around with my throat, but agreed to participate in abbreviated examination. Regarding swallow function he reports he has been crushing his meds at home for a long time. He describes difficulty with pills getting stuck in his mouth and sometimes choking on them when he tries to re-swallow them. He takes pills with thin liquids. He denies any difficulty with mastication, denies sensation of pharyngeal residue or s/sx aspiration such as coughing wiht liquids or solids, wet voice, throat clearing, etc. ? HPI: Pt is an 81 year old male with h/o moderate aortic stenosis admitted with worsening SOB, found to have acute CHF, new onset atrial fibrilation, (likely malignant) renal mass, JAYLEN, transaminitis. Predisposing dysphagia risk factors: CHF Clinical signs of possible chronic dysphagia: Unintentional weight loss (though may be related to malignant process) Precipitating dysphagia risk factors / triggering event: SOB PFSH All Active Problems?(Updated 09/16/22 @ 20:17 by Maco Choudhury MD) SOB (shortness of breath) (Acute) New onset atrial fibrillation (Acute) Elevated troponin (Acute) A-fib (Chronic) Acute kidney injury (Acute) Medical History? HTN (hypertension) Surgical History? No significant past surgical history Objective Objective Language: Grossly WFL, verbal expression/fluency, naming, repetition, auditory comprehension Hearing: WFL at close distance Mental Status: Alert and Oriented Difficulty understanding rationale for evaluation, unwilling to participate in some assessment activities, likely impacted by impulsiveness and reduced problem-solving abilities Speech: WFL Oral Motor Exam: ? Dentition ? Edentulous with dentures which he does not wear at this time due to lack of denture paste ? Oral Mucosa ? Dry ? Poor oral care ? CN V - Trigeminal ? Jaw Movement ? WFL ? CN VII ? Labial/Facial ? WFL ? CN IX ? Palate ? WFL ? CN X ? Laryngeal ? Vocal quality ? WFL ? Volitional cough ? Mildly Weak but sharp ? CN XII ? Lingual ? WFL ? Volitional Swallow ? Suspect reduced laryngeal elevation ? Food items tested: ?? None. Further swallow assessment not warranted at this time.? Ice: small ice chips swallowed whole in puree x2 IDDSI 0: thin liquid x 4 sips IDDSI 4: pudding x6 bites Oral phase: WFL Pharyngeal phase: Reduced hyolaryngeal elevation/excursion suspected Provided education to: Patient, RN Topics Addressed: anatomy/physiology of swallowing mechanism, overt s/sx to monitor for re: potential aspiration of food / liquids, recommendations for improved oral care, relationship between respiratory function changes and deglutition, Rationale for recommendations as outlined below, Other Outcome: Needs review/reinforcement Assessment IMPRESSIONS: Suspect at least mild oral dysphagia likely in setting of deconditioning, patient also with poor oral care and dry appearing oral mucosa which may complicate oral transit of some medications. Pt tolerates small ice chip in pudding without difficulty but not agreeable to trial larger pill in pudding (as opposed to liquid or slick puree such as applesauce). If patient is agreeable, ok to trial long-acting medications whole with pudding, but patient would prefer to continue with crushed medications at home even given education regarding medical rationale for whole pills/long-acting. Further PRINTING PRESS MACHINE OPERATOR services: not warranted - patient refuses further evaluation or treatment please place referral for outpatient or PRINTING PRESS MACHINE OPERATOR as appropriate if patient status changes or he becomes agreeable ? Recommendations: Diet Texture Modification(s): IDDSI Level(s) SOLIDS 6-Soft & Bite-Sized Solids LIQUIDS 0-Thin Liquids Medication Intake: As tolerated, crushed if able. Patient is unwilling to trial large pills with puree/pudding, though based on today's assessment I suspect he would tolerate them this way rather than with thin liquid. Alter medications only as advised by MD or Pharmacist RISK MANAGEMENT: HOB upright as tolerated; upright for all PO intake. Encourage physical mobility as tolerated. Oral hygiene BID/2x per day, before/after PO intake, using friction with toothbrush on all oral structures as tolerated ? Level of Assistance/Supervision: Independent PO intake only when awake/alert? Strategies/Adaptations/Assistive Equipment: Reduce auditory and/or visual distractions when eating, Provide verbal and/or visual cues to use recommended strategies, Small sips and bites when eating, Alternate intake of liquids and solids, Posture/Positioning Needs: Maintain upright position at least 30 minutes after meals Avoid meals/snacks 2-3 hours prior to reclining/sleeping PRINTING PRESS MACHINE OPERATOR CPT Code: 93696 Clinical Swallowing Evaluation TIME SPENT: 30 min Coding
--- NOTE | 2022-09-20 13:13 | W.PM.DS.N ---
Date of service: 09/20/22 Time of Service: 13:13 DS: Diagnosis Discharge Diagnosis (1) Acute congestive heart failure: Status: Acute (2) New onset atrial fibrillation: Status: Acute (3) Elevated troponin: Status: Acute (4) Renal mass: Status: Acute (5) Acute kidney injury: Status: Acute (6) Transaminitis: Status: Acute (7) Weight loss, non-intentional: Status: Acute Discharge Plan Disposition Patient Disposition: HOME Condition: Stable Discharge Details Reason For Visit: CHF, AF Admit Date/Time: 09/16/22 20:26 Admit Provider: Maco Choudhury Attending Provider: Maco Choudhury Primary Care Provider: Radha Amador V Hospital Course Hospital Course: This is an 81 yo male with h/o moderate aortic stenosis ? 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 Two days SURGICAL ELASTIC KNITTER was instructed to decrease Lopressor to 12.5 bid (circumstances not clear) and returned to the ED on 09/16/2022 with continued and worsening SOB. No CP. No ankle swelling, but did endorse orthopnea. In ED initial findings AF/RVR with pulses in 130s range. Given Lopressor 10mg IV in divided doses and 12.5 PO, with slowing of rates to lower 100s. Remainder of initial work up - CXR w/o cardiomegaly, and atelectasis vs basilar infiltrate; EKG with AF.? Troponin 1 and 2 of 92 and 93, similar to 09/12. BNP >35,000. Azotemia with BUN 64, Cr 1.8; AST 202, ALT 234 and TBili 1.1 (all elevated from 09/12). In the ED O2 sats low 90s RA, then on 2L NC sitting upright, sats mid-high 90s, and subjective improvement. He was admitted to the medical floor.? He was started on IV and oral Lopressor for rate control and Eliquis. Findings are consistent with decompensated heart failure.? He had a [id number] ultrasound which showed left ventricular dysfunction which is new.? The patient is an established patient with Dr. Nash, [facility] in [place].? He has moderate aortic stenosis documented by echocardiogram back in 2020.? At that time his EF was 60% with normal wall motion. Peak aortic valve gradient was 32, mean 18, calculated aortic valve area of 1 cm?.? There is mild to moderate aortic regurgitation and his right ventricular systolic pressure was elevated at 61 mmHg. EKG on presentation showed atrial fibrillation with an uncontrolled rate, premature ventricular contraction, poor R wave progression and probable left ventricular hypertrophy with ST-T abnormality.? We have recommended he have a cardiac event monitor, his PCPs office will work on a prior authorization. The 30 day monitor is not something he can do at home as he has no wifi or cell service. His liver enzymes were elevated and he underwent an abdominal ultrasound which identified a solid right renal mass and urology was consulted.? The patient does not recall ever having any other type of urologic evaluation.? He does not recall having any previous abdominal imaging.? He had no gross hematuria.? He had no flank pain.? He has lost weight and complains of some loss of appetite. He has not had any previous urologic surgery.? He has no known kidney stones. Dr. Kinsey recommends as long as there is no evidence of metastatic disease, a nephrectomy.? He states partial nephrectomies can be utilized to preserve functional renal tissue, but given the size of the lesion, radical nephrectomy is usually performed. If there is metastatic disease, the benefit of nephrectomy is controversial especially since he is not having flank pain or hematuria. An abd/pelvis CT was completed. Dr Kinsey discussed the surgical approaches with the patient and he submitted a referral to Dr. Pavan Foster at [facility].? The patient was told he would receive a call from that practice with an appointment. Imaging was pushed to [facility]. ?? He was seen by Speech therapy and has mild oral dysphagia likely in setting of deconditioning, patient also with poor oral care and dry appearing oral mucosa which may complicate oral transit of some medications. He was able to tolerate small ice chip in pudding without difficulty but not agreeable to trial larger pill in pudding.? He is being discharged with short acting medication secondary to his desire to crush pills. There is no recommendation for him to have outpatient speech therapy as he has refused further evaluation and treatment. His vital signs are stable.? He reports feeling better.? His home medications have been changed and are noted on the discharge instructions. These pills are all crushable. He was educated regarding blood thinners and potential dangers that is associated with them. He is discharged to home with Home Health care home services. Discussed with Dr Knapp Home Meds and New Rx's Prescriptions: New lisinopril 2.5 mg tablet 2.5 mg PO DAILY Qty: 30 0RF torsemide 10 mg tablet 10 mg PO DAILY Qty: 30 0RF spironolactone 25 mg tablet 12.5 mg PO DAILY Qty: 30 0RF metoprolol tartrate 25 mg tablet 12.5 mg PO BID Qty: 30 0RF Changed Eliquis 5 mg tablet 2.5 mg PO BID Qty: 90 0RF Rx Instructions: Take 2 tabs twice daily for 1 week then 1 tab twice daily Discontinued metoprolol tartrate 25 mg tablet 12.5 mg PO BID Discharge Instructions Instructions: Metoprolol (By mouth), Apixaban (By mouth), A-fib (Atrial Fibrillation) (DC) Additional Instructions: Dr. Kinsey sent a referral to [facility] for you and they will call you with an appointment. Home Health will call you to arrange an appointment for a nurse to meet with you. Stand Alone Forms: Nursing Discharge Form Referrals: [facility] [Other] (Office will call you with appointment.) Radha Amador MD [Primary Care Provider] - 09/23/22 2:30 pm (Follow up in 1-2 weeks) Ousmane Kinsey MD [[facility] STAFF PHYSICIAN] - (Follow up as needed.) Activity:: Activity as Tolerated Equipment/Supplies:: No Equipment Needed Diet:: Low Sodium Discharge Orders Discharge Orders: Discharge Order (Routine); Ordered 09/20/22 Ordered By: Erin Hanley Other Ambulatory Orders: Cardiac Event Recorder (Routine) Timeframe: 1 Week Location: PCP Ordered By: Erin Hanley Discharge Data Discharge Date/Time-TO BE ENTERED AT DEPARTURE: 09/20/22 16:16 DS: Summary Time Spent with Patient providing and/or coordinating discharge services: Greater than 30 minutes Status at Discharge Functional status at discharge: uses cane/walker Overall status at discharge: patient is progressing back to baseline Mental Status: mental status grossly normal Speech and Movement: speech and movement normal Mood: congruent mood Affect: normal affect Exam Narrative Exam Narrative: General: Pleasant elderly male who is sitting up in a chair on RA, A&Ox3, NAD HEENT: EOMI, MMM Heart: irregularly irregular rhythm, no m/r/g Lungs: CTAB Abdomen: soft, nontender, nondistended Extremities: no edema Psych Mental Status: mental status grossly normal Speech and Movement: speech and movement normal Mood: congruent mood Affect: normal affect DS: Data Vitals/I&O Vitals and I&O: Vital Signs Temperature 36.5 C 09/20/22 11:09 Temperature Source Tympanic 09/20/22 11:09 Pulse 58 L 09/20/22 11:09 Pulse Rhythm Regular 09/20/22 10:25 Pulse 94 H 09/17/22 22:02 Respiratory Rate 18 09/20/22 11:09 Respiratory Effort Non-Labored 09/20/22 10:25 Respiratory Depth Normal 09/20/22 10:25 Respiratory Pattern Normal 09/20/22 10:25 Blood Pressure 114/67 09/20/22 11:09 Blood Pressure Mean 82 09/17/22 22:01 Blood Pressure Position Supine 09/17/22 16:30 Pulse Oximetry 97 09/20/22 11:09 Oxygen Delivery Method Room Air 09/20/22 11:09 Oxygen Flow Rate 0 09/20/22 11:09 Pain Level 0 09/20/22 11:09 Comment 09/20/22 07:08 Intake & Output 09/19/22 09/20/22 09/20/22 23:59 11:59 23:59 Intake Total 320 / 680 800 / 800 Output Total 1025 / 1450 900 / 1200 300 / 1200 Balance -705 / -770 -100 / -400 -300 / -400 Weight 55.7 kg Intake: Oral 320 / 680 800 / 800 Output: Urine 1025 / 1450 900 / 1200 300 / 1200 Other: Urine Color Light Nighat Yellow Yellow Urine Appearance Clear Clear Clear Sediment Voiding Methods Toilet Toilet Toilet Data Completed and Pending Labs on day of discharge: Labs from last 24 hours 09/20/22 09/20/22 05:30 05:30 WBC 6.45 RBC 4.57 Hgb 13.8 Hct 41.9 MCV 92 MCH 30.2 MCHC 32.9 RDW 15.1 H Plt Count 128 L MPV 10.9 Immature Gran % 0.2 Neutrophils % 75.2 Lymphocytes % 12.7 Monocytes % 10.9 Eosinophils % 0.8 Basophils % 0.2 Nucleated RBC % 0.0 Absolute Neutrophils 4.86 Absolute Lymphocytes 0.82 L Absolute Monocytes 0.70 Absolute Eosinophils 0.05 Absolute Basophils 0.01 Sodium 135 L Potassium 3.7 Chloride 99 Carbon Dioxide 30.7 Anion Gap 5.3 BUN 46 H Creatinine 1.3 Est GFR (CKD-EPI 2020) 54.85 Glucose 108 H Calcium 8.6 Magnesium 2.3 PFSH All Active Problems (Updated 09/21/22 @ 00:02 by JUSTIN ALEJANDRO) Renal mass (Acute) Aortic stenosis (Chronic) Acute congestive heart failure (Acute) Weight loss, non-intentional (Acute) Transaminitis (Acute) SOB (shortness of breath) (Acute) New onset atrial fibrillation (Acute) Elevated troponin (Acute) A-fib (Chronic) Acute kidney injury (Acute) Medical History HTN (hypertension) Surgical History No significant past surgical history Social History Smoking/Tobacco Use Status: Never Smoking risk assessment performed?: Yes Alcohol Intake: never Drug use: Never Substance use type: does not use Do you feel safe at home: Yes Do you feel safe in your relationship?: Yes
--- NOTE | 2022-09-20 15:11 | CMDISCH_ITS ---
- If Service Date Differs Date of service: 09/20/22 Time of Service: 15:11 LACE Index Scoring Tool - Questions: Length of Stay (in days): 4 - 6 Acuity (Admit via E.D.?): Yes E.D. Visits: 2 - Answers: Total Score: 9 Risk of Readmission: Low Risk Care Management Discharge Reason for Hospitalization: CHF, AF Discharge Plan: Domingo will return home when ready per MD. 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 New orders completed for [facility] RN; [facility] notified. CM sent notification to PCP CC for pvc monitor referral. Referrals completed for [facility], [facility], as well. Education and resources provided-directives for setting up [facility] transport once follow up appointment has been scheduled with [facility]. Patient/Family Education Needs: Review of community based supports, identified gaps in services-reviewed options, services, referrals completed. Services Needed at Discharge: Home Delivered Meals ([facility] referral completed), Home Health Care Services (RN), Transportation ([facility])
--- NOTE | 2022-09-22 13:21 | PDOC.HHF2F_ITS ---
Home Health Certification Home Health Certification: 1. Encounter Date and Reason I certify that Domingo Henriquez was seen by Erin Hanley NP on 09/22/22 and that I had a [id number] encounter with this patient that meets the physician face to face encounter requirements. 2. Clinical Findings Supporting Skilled Need and Homebound Status I certify that home health services are medically necessary, include either intermittent fci and/or physical/speech therapy, and that this p atient is homebound in that absences from the home require considerable and taxing effort and are infrequent or of short duration, or are attributable to the need to receive medical care. [X] (a) Attached documentation from encounter provides clinical findings supporting skilled need and homebound status (including what assistance patient requires to leave the home). The encounter with the patient was in whole, or in part, for the following medical condition, which is the primary reason for home health care: CHF, AF Long-Term: Monitor patient's medical condition, assess exacerbation of medical condition and instruct on medication regimen, medication management, --new diuretics and betablockers--therapeutic diet, safety and signs and symptoms to report. Homebound: Patient is unable to leave home without assistance and ambulation is severely limited due to chronic medical condition 3. Certification and Authentication I certify that I composed the above information based on my clinical judgement relating to this patient's medical condition and, if applicable, clinical findings communicated to me by the NPP or inpatient physician who performed the Home Health Referral. All further orders will be obtained through Kim Amador MD
--- NOTE | 2022-09-23 15:03 | CMPROGNOTE_ITS ---
- If Service Date Differs Date of service: 09/23/22 Time of Service: 15:03 Care Management Progress Note CM received call from KAREL Joel at [facility] requesting medication dosage information regarding discharge medications. SUSAN notified JESSENIA Khan and requested she contact Marycruz for review.
== END 2022-09-20 16:16 | disposition home or self-care (01) | DRG 291 ==
LOC: ER 20:30 → ICU 21:39 → MS 09-18 01:02
PROVIDERS: Internal Medicine; Admitting Provider General Practice; Emergency Provider Emergency Medicine; PCP Family Medicine; Visit Provider General Practice
DX: I11.0 Hypertensive heart disease with heart failure (principal); I50.21 Acute systolic (congestive) heart failure; J98.11 Atelectasis; N17.9 Acute kidney failure, unspecified; Z68.1 Body mass index [BMI] 19.9 or less, adult; C64.1 Malignant neoplasm of right kidney, except renal pelvis; I48.91 Unspecified atrial fibrillation; Z79.01 Long term (current) use of anticoagulants; R74.8 Abnormal levels of other serum enzymes; R74.01 Elevation of levels of liver transaminase levels; R63.4 Abnormal weight loss; I25.2 Old myocardial infarction; I08.3 Combined rheumatic disorders of mitral, aortic and tricuspid valves
CPT/HCPCS: 36415; 36556; 74177; 80048; 80053; 80076; 87635; 92610; 93005; 93306; 96361; 96374; 99222; 99223; 99233; 99285; 71046; 71260; 76700; 83735; 83880; 84132; 84450; 84460; 84484; 85025; 85610; 85730; 93010; 99232; 99239; 99291; J1940; J1941; J3490

== ENCOUNTER 2022-10-02 11:12 | Outpatient (REF) | payer OTHER, SELFPAY ==
[2022-10-02 11:45] LABS: Anion Gap 7.9 mmol/L (3-11); BUN 34 mg/dL (7-18); CO2 29.1 mmol/L (21.0-32.0); CREATININE 1.2 mg/dL (0.70-1.30); Calcium 9.4 mg/dL (8.5-10.1); Chloride 97 mmol/L (98-107); Estimated GFR 60.38 (mL/min/1.73m2); Glucose 127 mg/dL (74-106); Potassium 5.1 mmol/L (3.5-5.1); Sodium 134 mmol/L (136-145)
== END 2022-10-02 11:13 | disposition home or self-care (01) ==
LOC: NCHCN 11:12
PROVIDERS: PCP Family Medicine; Visit Provider Family Medicine
DX: I48.0 Paroxysmal atrial fibrillation (principal); I11.0 Hypertensive heart disease with heart failure; I50.9 Heart failure, unspecified; N17.9 Acute kidney failure, unspecified
CPT/HCPCS: 80048

== ENCOUNTER 2022-10-04 03:28 | Inpatient (IN) | payer OTHER, SELFPAY ==
[2022-10-04] VITALS (47 sets, daily range): BP systolic 80–123; BP diastolic 43–94; PULSE 53–162; RESP 12–45; TEMP 36.3–36.9; O2SAT 93–100
--- NOTE | 2022-10-04 03:15 | RT.EKG_ITS ---
APPROVED REPORT Exam: Resting ECG Reason for Exam: short of breath Patient Location: E HR:131 bpm ECG Measurements Heart Rate 131 AXIS GA [id number] P [id number] QRSd 93 QRS 61 QT 301 T 102 QTc 445 Conclusion Atrial fibrillation...? atrial activity Probable anteroseptal infarct, recent...Q, ST>0.15mV, T neg, V1-V2 Physician: Atrial fibrillation, large PVC. 1.5 to 2 mm of elevation in V1 V2 and V3. No reciprocal depressions. No STEMI. Prior EKG from 09/16/2022 demonstrates near identical findings and morpholog y. No acute change
--- NOTE | 2022-10-04 03:30 | DI.RAD_ITS ---
Exam(s) XR PORTABLE CHEST AP EXAM: XR PORTABLE CHEST AP CLINICAL HISTORY: sob. TECHNIQUE: 2D digital imaging was performed. COMPARISON: CR XR CHEST 2V PA LATERAL from 09/16/2022 FINDINGS: Single AP portable view. There is cardiomegaly again noted. There is now a cardiac loop detector evident. The mediastinum is not widened. There are no infiltrates, however, there are persistent small bilateral pleural effusi ons with blunting of both costophrenic angles again noted. No airspace pulmonary edema. Lungs are clear. No infiltrates nor obvious pleural effusions. IMPRESSION: Mild cardiomegaly. Persistent small bilateral pleural effusions. DATA REPOSITORY: RADIATION DOSE DELIVERED:
--- NOTE | 2022-10-04 03:36 | W.ED.GENAD ---
Discharge Plan Disposition Patient Disposition: [facility] INPATIENT Condition: Serious Discharge Details Clinical Impression: Acute congestive heart failure, A-fib, Acute kidney injury Primary Care Provider: Radha Amador V ED Provider: Deandre Benson Home Meds and New Rx's Prescriptions: No Action Eliquis 5 mg tablet 2.5 mg PO BID Qty: 90 0RF Rx Instructions: Take 2 tabs twice daily for 1 week then 1 tab twice daily lisinopril 2.5 mg tablet 2.5 mg PO DAILY Qty: 30 0RF torsemide 10 mg tablet 10 mg PO DAILY Qty: 30 0RF spironolactone 25 mg tablet 12.5 mg PO DAILY Qty: 30 0RF metoprolol tartrate 25 mg tablet 12.5 mg PO BID Qty: 30 0RF Medical Decision Making This is an 81-year-old male with past medical history of recent onset atrial fibrillation on Eliquis, congestive heart failure, planned follow-up with cardiology in [place] this week, as well as also a newly noted renal mass with further plan for potential surgery. He presents today via EMS for evaluation of shortness of breath and difficulty breathing. Patient states that for the last week he has had on and off mild difficulty breathing. However this night it came on notably more pronounced at around 5 PM. He denies any cough or fever. No chills. He denies any current chest pain. He denies any tearing or ripping sensation in his chest. He states he has been taking his medications as directed. No other complaints at this time. No other modifying factors. Exam demonstrates mild pitting edema of the lower extremities. Lung sounds are clear But slightly diminished. Differential is highest for CHF, however ACS is less likely but on the differential. We will evaluate for these etiologies, monitor closely and reassess. 5:21 AM Laboratory work-up shows worsening renal function in the last 48 hours with his creatinine now 1.8, and GFR down to 37. Electrolytes stable. BUN high at 53. proBNP is 29,000, troponin mildly elevated. proBNP seems to be increasing from when he was discharged, troponin seems to be stable. EKG shows ST elevation but it is unchanged with his prior, and stable. Patient was given 2.5 mg of metoprolol, and this brought his heart rate down from the 150s/160s to the high 90s to low 110s. However it also brought his blood pressure down to the 90s systolic. We will hold off on additional beta-blockers or calcium channel blockers at this time. The patient appears to be in a somewhat challenging scenario with worsening renal function, worsening heart strain, but also his A. fib with RVR and blood pressure sensitivities. I did review with the patient his CODE STATUS, and he reiterates that he is full code. With his worsening global picture I do feel that admission is indicated. We are pending formal x-ray results from radiology, but some B-lines were noticed although the patient is notably stable from an oxygenation standpoint, and is just subjectively short of breath. Patient does admit that he did miss his nighttime dose of metoprolol tonight but does reassure me that he has been taking all of his other medications as directed. With the patient's complicated clinical picture, I did contact the hospitalist for admission. I discussed the case with Dr. Shields, he agrees with the assessment and plan. I have extensively reviewed the treatment plan with the patient. I have addressed all patient concerns at this time. I have also discussed the plan with the admitting physician and they agree with the current assessment and plan and have agreed to assume responsibility for the patient. All parties demonstrate verbal understanding and agreement with our assessment and plan at this time. The documentation in this chart was dictated using [employer] dictation software. Please excuse any dictation errors. EKG 3: 28 Atrial fibrillation, large PVC. 1.5 to 2 mm of elevation in V1 V2 and V3. No reciprocal depressions. No STEMI. Prior EKG from 09/16/2022 demonstrates near identical findings and morphology. No acute change FINDINGS: Lungs: No new consolidation. No overt pulmonary edema. Pulmonary vasculature is normal in caliber. Pleural spaces: Small bilateral pleural effusions. No pneumothorax. Heart/Mediastinum: Mild cardiomegaly. Cardiomediastinal contours are satisfactory. Bones/joints: Degenerative changes. No acute osseous abnormality. IMPRESSION: 1. Small bilateral pleural effusions. 2. Mild cardiomegaly. Thank you for allowing us to participate in the care of your patient. Dictated and Authenticated by: Kathy Ayers MD 10/04/2022 5:41 AM Eastern Time ([place] & [place]) HPI General Date/Time Provider Initiated Documentation: 10/04/22 03:33. HPI Narrative: This is an 81-year-old male with past medical history of recent onset atrial fibrillation on Eliquis, congestive heart failure, planned follow-up with cardiology in [place] this week, as well as also a newly noted renal mass with further plan for potential surgery. He presents today via EMS for evaluation of shortness of breath and difficulty breathing. Patient states that for the last week he has had on and off mild difficulty breathing. However this night it came on notably more pronounced at around 5 PM. He denies any cough or fever. No chills. He denies any current chest pain. He denies any tearing or ripping sensation in his chest. He states he has been taking his medications as directed. No other complaints at this time. No other modifying factors. Related Data Home Medications Medication Instructions Recorded Confirmed apixaban 5 mg tablet (Eliquis) 2.5 mg PO BID #90 tabs 09/20/22 10/04/22 lisinopril 2.5 mg tablet 2.5 mg PO DAILY #30 tabs 09/20/22 10/04/22 metoprolol tartrate 25 mg tablet 12.5 mg PO BID #30 tabs 09/20/22 10/04/22 spironolactone 25 mg tablet 12.5 mg PO DAILY #30 tabs 09/20/22 10/04/22 torsemide 10 mg tablet 10 mg PO DAILY #30 tabs 09/20/22 10/04/22 Previous Rx's Medication Instructions Recorded apixaban 5 mg tablet (Eliquis) 2.5 mg PO BID #90 tabs 09/20/22 lisinopril 2.5 mg tablet 2.5 mg PO DAILY #30 tabs 09/20/22 metoprolol tartrate 25 mg tablet 12.5 mg PO BID #30 tabs 09/20/22 spironolactone 25 mg tablet 12.5 mg PO DAILY #30 tabs 09/20/22 torsemide 10 mg tablet 10 mg PO DAILY #30 tabs 09/20/22 Allergies Allergy/AdvReac Type Severity Reaction Status Date / Time No Known Allergies Allergy Unverified 10/04/22 03:29 General Stated Complaint: SOB KURT: 2 Review of Systems All systems reviewed & are unremarkable except as noted in HPI and below PFSH All Active Problems (Updated 10/04/22 @ 05:26 by Deandre Benson DO) Renal mass (Acute) Aortic stenosis (Chronic) Acute congestive heart failure (Acute) Weight loss, non-intentional (Acute) Transaminitis (Acute) SOB (shortness of breath) (Acute) New onset atrial fibrillation (Acute) Elevated troponin (Acute) A-fib (Chronic) Acute kidney injury (Acute) Medical History HTN (hypertension) Surgical History No significant past surgical history Social History Smoking/Tobacco Use Status: Never Smoking risk assessment performed?: Yes Alcohol Intake: never Drug use: Never Substance use type: does not use Do you feel safe at home: Yes Do you feel safe in your relationship?: Yes Exam Narrative Exam Narrative: 1.Const: Well-nourished, Well-developed, appearing stated age 2.Eyes: PERRL, no conjunctival injection, and symmetrical lids. 3.ENT: Atraumatic external nose and ears. Moist MM. Neck: Symmetric, trachea midline, No thyromegaly. 4.CVS: +S1/S2, No murmurs or gallops. Peripheral pulses 2+ and equal in all extremities. Brisk capillary refill in all extremities. 5.RESP: Unlabored respiratory effort. Clear to auscultation bilaterally. No wheezes rales or rhonchi 6.GI: Soft, Nontender/Nondistended, No hepatosplenomegaly. No guarding or rebound. 7.MSK: Normocephalic/Atraumatic, Extremities w/o deformity or ttp No cyanosis or clubbing, Normal movement of all extremities. +1 pitting edema of the lower extremities bilaterally. No calf tenderness 8.Skin: Warm, Dry. No rashes or lesions. 9.Neuro: judicial administrative assistant II-XII grossly intact. Sensation grossly intact, no focal neurologic deficits. 10.Psych: (AAO) x3. Appropriate mood and affect Course Vital Signs Vital signs: Vital Signs Temperature 36.9 C 10/04/22 03:26 Pulse 139 H 10/04/22 03:26 Respiratory Rate 29 H 10/04/22 03:26 Blood Pressure 113/94 H 10/04/22 03:26 Pulse Oximetry 99 10/04/22 03:26 Temperature 36.9 C 10/04/22 03:26 Temperature Source Temporal Artery Scan 10/04/22 03:26 Pulse 139 H 10/04/22 03:26 Respiratory Rate 29 H 10/04/22 03:26 Respiratory Effort 10/04/22 03:26 Blood Pressure 113/94 H 10/04/22 03:26 Pulse Oximetry 99 10/04/22 03:26 Oxygen Delivery Method Room Air 10/04/22 03:26 Oxygen Flow Rate 0 10/04/22 03:26 Critical Care Time Critical Care Time Critical Care Time: Yes Total Critical Care Time: 30 Attestation: Upon my evaluation, this patient had a high probability of imminent or life-threatening deterioration, which required my direct attention, intervention, and personal management. I have personally provided 45 minutes of critical care time exclusive of time spent on separately billable procedures. Time includes review of laboratory data, radiology results, discussion with consultants, and monitoring for potential decompensation. Interventions were performed as documented. POCUS Exam (ED) Limited Cardiac Exam DATE OF EXAM: 10/04/22 TIME OF EXAM: 04:12 PROVIDER THAT PERFORMED THE STUDY: Deandre Benson REASON FOR EXAM: Congestive heart failure VISUALIZED STRUCTURES: Left atrium, Left ventricle, Right ventricle and Interventricular septum VIEW OBTAINED: Parasternal long-axis PERTINENT FINDINGS/IMPRESSION: LV dysfunction and RV dysfunction DIFFERENTIAL DIAGNOSES: Notably reduced ejection fraction around 20% Exam complete
[2022-10-04 03:58] LABS: Source Nasal/Nares
[2022-10-04 03:59] LABS: BE (Venous) 0 mmol/L (-2-3); HCO3 (Venous) 26 mmol/L (23-28); O2 Sat (Venous) 51 %; TCO2 (Venous) 23 mmol/L (24-29); pCO2 (Venous) 47 mmHg (41-51); pH (Venous) 7.34 (7.31-7.41); pO2 (Venous) 32 mmHg
[2022-10-04 04:04] LABS: Abs Immature Grans 0.02 10^3/uL (0.0-0.06); Absolute Basophil Count 0.01 10^3/uL (0.0-0.2); Absolute Eosinophil Count 0.01 10^3/uL (0.0-0.7); Absolute Lymphocyte Count 1.05 10^3/uL (1.2-3.4); Absolute Monocyte Count 0.42 10^3/uL (0.1-0.8); Absolute Neutrophil Count 5.13 10^3/uL (1.2-6.7); Basophils % 0.2; Eosinophils % 0.2; HCT 44.7 % (40.0-50.0); HGB 14.8 g/dL (13.5-17.5); Immature Grans % 0.3; Lymphocytes % 15.8; MCHC 33.1 % (32.0-36.0); MCV 94 fL (80-95); MPV 10.9 fL (8.0-11.0); Monocytes % 6.3; Neutrophils % 77.2; Platelet Count 170 10^3/uL (130-400); RBC 4.78 10^6/uL (4.36-5.78); RDW 15.5 % (11.8-14.1); RDW-SD 53.2 fL; WBC 6.64 10^3/uL (4.4-10.8)
[2022-10-04 04:17] LABS: INR 1.4 (0.9-1.1); PTT Activated 23.3 sec (21.0-27.5); Prothrombin Time 13.8 sec (9.3-11.0)
[2022-10-04] MEDS: Metoprolol 5 MG/5 ML VIAL 2.5 MG IVP (04:18)
[2022-10-04 04:27] LABS: COVID-19 PCR Negative (Negative)
[2022-10-04 04:42] LABS: ALT 93 U/L (16-63); AST 44 U/L (15-37); Albumin 3.8 g/dL (3.4-5.0); Alkaline Phosphatase 114 U/L (46-116); Anion Gap 11.6 mmol/L (3-11); BUN 53 mg/dL (7-18); Bilirubin, Total 1.1 mg/dL (0.2-1.0); CO2 26.4 mmol/L (21.0-32.0); CREATININE 1.8 mg/dL (0.70-1.30); Calcium 9.2 mg/dL (8.5-10.1); Chloride 95 mmol/L (98-107); Estimated GFR 37.12 (mL/min/1.73m2); Glucose 139 mg/dL (74-106); Potassium 4.9 mmol/L (3.5-5.1); Sodium 133 mmol/L (136-145); TSH (W/Ref FT4) 3.08 uIU/mL (0.36-3.74); Total Protein 7.4 g/dL (6.4-8.2)
[2022-10-04 04:43] LABS: Troponin I 81 ng/L (<or=60)
--- NOTE | 2022-10-04 05:41 | DI.VRAD_ITS ---
PROCEDURE INFORMATION: Exam: XR Chest Exam date and time: 10/04/2022 4:03 AM Age: 81 years old Clinical indication: Other: SOB TECHNIQUE: Imaging protocol: Radiologic exam of the chest. Views: 1 view. COMPARISON: CT CHEST/ABD/PEL W 09/17/2022 3:22 PM FINDINGS: Lungs: No new consolidation. No overt pulmonary edema. Pulmonary vasculature is normal in caliber. Pleural spaces: Small bilateral pleural effusions. No pneumothorax. Heart/Mediastinum: Mild cardiomegaly. Cardiomediastinal contours are satisfactory. Bones/joints: Degenerative changes. No acute osseous abnormality. IMPRESSION: 1. Small bilateral pleural effusions. 2. Mild cardiomegaly. Dictated and Authenticated by: Kathy Ayers MD. Ordering:ROSA Carrera MD
[2022-10-04 07:22] LABS: Troponin I 77 ng/L (<or=60)
--- NOTE | 2022-10-04 08:30 | W.PM.HP.N ---
Date of service: 10/04/22 Time of Service: 08:30 Assessment and Plan Assessment and plan (1) Renal mass: Status: Acute Assessment and plan: I believe this is a stable problem at the present time. The question will be whether he is stable enough from a cardiovascular point of view to have a nephrectomy. (2) Acute congestive heart failure: Status: Acute Assessment and plan: He has a low ejection fraction based on his last echocardiogram. He is having symptoms of heart failure which I think are more likely due to his tachycardia. We will continue his heart failure medicines but switch from metoprolol to carvedilol. Cardiology consultation has been requested. (3) A-fib: Status: Chronic Assessment and plan: His apixaban will be continued. As noted above I will stop his metoprolol and started him on carvedilol. (4) Acute kidney injury: Status: Acute Assessment and plan: The elevation of his creatinine is a worrisome finding in conjunction with his heart failure. BMP will be checked later today. History of Present Illness History of Present Illness Chief Complaint: dyspnea Narrative: This 81-year-old male is here because of shortness of breath. 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 He has an appointment with cardiology in 3 days in [facility]. He says this is a preoperative evaluation to determine if he is stable to have the renal mass removed surgically. He has had some difficulty with shortness of breath over the last few days but got worse yesterday afternoon. He says he has been taking his medicine as directed except he missed yesterday afternoon's metoprolol. He has had no chest pain with this. He lives with a friend who helps him manage his needs at home. He says he has no other family. Review of Systems Constitutional Constitutional: Denies chills, Denies fever(s) and Reports weakness Cardiovascular Cardiovascular: Denies chest pain, Denies rapid heart rate, Denies palpitations, Reports dyspnea, Reports dyspnea on exertion and Reports orthopnea Respiratory Respiratory: Reports dyspnea and Reports dyspnea on exertion Gastrointestinal Gastrointestinal: Denies heartburn, Denies diarrhea, Denies nausea and Denies vomiting Genitourinary Genitourinary: Denies hematuria, Denies difficulty urinating, Denies dysuria and Denies urinary hesitancy Neurologic Neurologic: Reports weakness Endocrine Endocrine: Denies palpitations PFSH All Active Problems (Updated 10/04/22 @ 05:26 by Deandre Benson DO) Renal mass (Acute) Aortic stenosis (Chronic) Acute congestive heart failure (Acute) Weight loss, non-intentional (Acute) Transaminitis (Acute) SOB (shortness of breath) (Acute) New onset atrial fibrillation (Acute) Elevated troponin (Acute) A-fib (Chronic) Acute kidney injury (Acute) Medical History HTN (hypertension) Surgical History No significant past surgical history Social History Smoking/Tobacco Use Status: Never Smoking risk assessment performed?: Yes Alcohol Intake: never Drug use: Never Substance use type: does not use Do you feel safe at home: Yes Do you feel safe in your relationship?: Yes Meds Allergies and Home Medications Allergies Allergy/AdvReac Type Severity Reaction Status Date / Time No Known Allergies Allergy Unverified 10/04/22 03:29 Home Medications Medication Instructions Recorded Confirmed Type apixaban 5 mg tablet (Eliquis) 2.5 mg PO BID #90 tabs 09/20/22 10/04/22 Rx lisinopril 2.5 mg tablet 2.5 mg PO DAILY #30 tabs 09/20/22 10/04/22 Rx metoprolol tartrate 25 mg tablet 12.5 mg PO BID #30 tabs 09/20/22 10/04/22 Rx spironolactone 25 mg tablet 12.5 mg PO DAILY #30 tabs 09/20/22 10/04/22 Rx torsemide 10 mg tablet 10 mg PO DAILY #30 tabs 09/20/22 10/04/22 Rx Exam Const Nutritional Appearance: average body habitus Orientation: alert and oriented x3 Neck Neck: normal visual inspection, no lymphadenopathy and no JVD Resp Effort & Inspection: normal respiratory effort, able to speak in complete sentences, no stridor and not tachypneic Auscultation: clear to auscultation bilaterally and no rales Cardio Rate: tachycardic Rhythm: abnormal rhythm Heart Sounds: S1 normal, S2 normal, no gallops and no murmurs GI Palpation: soft, no hepatosplenomegaly, no masses and nontender Extrem Other: + 1 edema No edema of the right lower extremity. No calf tenderness bilaterally. Results Labs Result diagrams: 10/04/22 03:50 10/04/22 03:50 Labs: Laboratory Results - last 24 hr 10/04/22 10/04/22 10/04/22 03:50 03:50 03:50 WBC 6.64 RBC 4.78 Hgb 14.8 Hct 44.7 MCV 94 MCH 31.0 MCHC 33.1 RDW 15.5 H Plt Count 170 MPV 10.9 Immature Gran % 0.3 Neutrophils % 77.2 Lymphocytes % 15.8 Monocytes % 6.3 Eosinophils % 0.2 Basophils % 0.2 Nucleated RBC % 0.0 Absolute Neutrophils 5.13 Absolute Lymphocytes 1.05 L Absolute Monocytes 0.42 Absolute Eosinophils 0.01 Absolute Basophils 0.01 PT 13.8 H INR 1.4 H APTT 23.3 VBG pH VBG pCO2 VBG pO2 VBG HCO3 VBG Total CO2 VBG O2 Saturation VBG Base Excess Sodium 133 L Potassium 4.9 Chloride 95 L Carbon Dioxide 26.4 Anion Gap 11.6 H BUN 53 H Creatinine 1.8 H Est GFR (CKD-EPI 2020) 37.12 Glucose 139 H Calcium 9.2 Total Bilirubin 1.1 H AST 44 H ALT 93 H Alkaline Phosphatase 114 Troponin I 81 H* NT-Pro-B Natriuret Pep 77787 H Total Protein 7.4 Albumin 3.8 TSH 3.08 COVID-19 Source SARS-CoV-2 (PCR) 10/04/22 10/04/22 10/04/22 03:50 03:55 06:50 WBC RBC Hgb Hct MCV MCH MCHC RDW Plt Count MPV Immature Gran % Neutrophils % Lymphocytes % Monocytes % Eosinophils % Basophils % Nucleated RBC % Absolute Neutrophils Absolute Lymphocytes Absolute Monocytes Absolute Eosinophils Absolute Basophils PT INR APTT VBG pH 7.34 VBG pCO2 47 VBG pO2 32 VBG HCO3 26 VBG Total CO2 23 L VBG O2 Saturation 51 VBG Base Excess 0 Sodium Potassium Chloride Carbon Dioxide Anion Gap BUN Creatinine Est GFR (CKD-EPI 2020) Glucose Calcium Total Bilirubin AST ALT Alkaline Phosphatase Troponin I 77 H* NT-Pro-B Natriuret Pep Total Protein Albumin TSH COVID-19 Source Nasal/Nares SARS-CoV-2 (PCR) Negative Last Vital Signs Temp 36.3 C L 10/04/22 06:15 Pulse 127 H 10/04/22 08:00 Resp 21 10/04/22 08:00 BP 123/60 10/04/22 08:00 Pulse Ox 96 10/04/22 08:00
[2022-10-04] MEDS: Torsemide 20 MG TAB 10 MG PO (08:42)
[2022-10-04] MEDS: Carvedilol 3.125 MG TAB PO (08:42)
[2022-10-04] MEDS: Apixaban 5 MG TAB 2.5 MG PO ×2 (08:42→19:34)
[2022-10-04] MEDS: Spironolactone 25 MG TAB 12.5 MG PO (08:42)
[2022-10-04] MEDS: Lisinopril 5 MG TAB 2.5 MG PO (08:42)
[2022-10-04] MEDS: Carvedilol 6.25 MG TAB PO ×2 (10:48→17:35)
--- NOTE | 2022-10-04 13:05 | PHA.REVIEW2 ---
Pharmacy Admission Review - Admission Clinical Review (Last Reviewed 10/04/22 @ 03:52 by Deandre Benson DO) Renal mass (Acute) Acute congestive heart failure (Acute) Acute kidney injury (Acute) No Known Allergies Allergy (Unverified 10/04/22 03:29) Resuscitation Status Full Code Height 5 ft 6 in Weight 57.8 kg - Renal Dosing Renal Dosing: BUN 53 mg/dL (7-18) H 10/04/22 03:50 Creatinine 1.8 mg/dL (0.70-1.30) H 10/04/22 03:50 Medications needing adjustments: Reviewed (crcl = 25) List of meds needing interventions: already on reduced dose apixiban 2.5 mg BID, other meds ok - Anticoagulation Anticoagulation: Hgb 14.8 g/dL (13.5-17.5) 10/04/22 03:50 Hct 44.7 % (40.0-50.0) 10/04/22 03:50 Plt Count 170 10^3/uL (130-400) 10/04/22 03:50 INR 1.4 (0.9-1.1) H 10/04/22 03:50 Creatinine 1.8 mg/dL (0.70-1.30) H 10/04/22 03:50 DVT Prophylaxis: Reviewed Medications: Apixaban Therapeutic Anticoagulation: Reviewed Medications: Apixaban (started recently 09/11/22, new onset afib) - Opiate Usage Evaluate Pain Scale/Pains Meds: N/A - Relevant Labs Sodium 133 mmol/L (136-145) L 10/04/22 03:50 Potassium 4.9 mmol/L (3.5-5.1) 10/04/22 03:50 Chloride 95 mmol/L (98-107) L 10/04/22 03:50 Electrolytes, C-Reactive P, ESR: Reviewed - DM Control DM Control: Glucose 139 mg/dL (74-106) H 10/04/22 03:50 DM Control: N/A - Cardiac Review Cardiac Review: Troponin I 77 ng/L (<or=60) H* 10/04/22 06:50 NT-Pro-B Natriuret Pep 49486 pg/mL (<300) H 10/04/22 03:50 BP, HR, EF%: Reviewed (1xdose metoprolol 2.5 mg IV given, effective for lowering HR however also decreased BP to 90s systolic) List meds needing interventions: Takes metoprolol tartrate 12.5 mg BID at home, switched to carvedilol 3.125 mg BID starting today (extra 6.25 mg given this AM) - Qtc Review QTc: Reviewed (QTc = 445) - IV to PO Switch IV Medications: N/A - Home Meds Home Med List reviewed: Reviewed Relevent Home Meds Not ordered & why?: metoprolol switched to carvedilol - Current meds Current Medication Order Review: Reviewed
--- NOTE | 2022-10-04 13:41 | PDOC.CMIN ---
- If Service Date Differs Date of service: 10/04/22 Time of Service: 13:41 Care Management Initial Assess REASON FOR HOSPITALIZATION:: JAYLEN, CHF, AFIB PAST MEDICAL HISTORY/PAST SURGICAL HISTORY:: Renal mass (Acute). Aortic stenosis (Chronic). Acute congestive heart failure (Acute). Weight loss, non-intentional (Acute). Transaminitis (Acute). SOB (shortness of breath) (Acute). New onset atrial fibrillation (Acute). Elevated troponin (Acute). A-fib (Chronic). Acute kidney injury (Acute) PREVIOUS FUNCTIONAL STATUS/SOCIAL/FAMILY SUPPORTS:: Resides in [place], with [place], care needs continue to rise and he has follow up planned with [facility] and [facility]. Currently, he has [facility] RN services. ADLs: becomes SOB with exertion. CURRENT FUNCTIONAL STATUS:: Domingo was lying in bed, pleasant in interaction and fully engaged with this contract technical writer. SUSAN also spoke with [place] who shared concerns for having to advocate with EMS for transport to [facility]. She also wanted to be sure to clarify that Domingo will transport home in private vehicle. ADVANCE DIRECTIVES:: On file; [place] as agent. Has patient been provided with info about the portal/API?: Yes Did the patient sign up for the portal?: No CODE STATUS:: Full Code INSURANCE COVERAGE / FINANCIAL ISSUES:: [employer] CURRENT HOME/COMMUNITY SERVICES/EQUIPMENT:: [facility]: RIGGING UP MAN PHYSICIAN:: Radha Amador POTENTIAL DISCHARGE NEEDS:: Follow up appointments, resumption of home health. PATIENT/FAMILY EDUCATION NEEDS:: Review of discharge instructions, discuss Ask Me [employer]. ANTICIPATED BARRIERS TO DISCHARGE:: None identified. TRANSPORTATION:: [facility] Private Vehicle PLAN:: Domingo will return home when ready per MD. He will resume RN services through [facility] and follow up with previously made appointments at [facility] and [facility] as well as his PCP. He will transport via [facility] private vehicle.
[2022-10-04 15:30] LABS: Anion Gap 9.3 mmol/L (3-11); BUN 57 mg/dL (7-18); CO2 24.7 mmol/L (21.0-32.0); CREATININE 1.5 mg/dL (0.70-1.30); Calcium 8.8 mg/dL (8.5-10.1); Chloride 97 mmol/L (98-107); Estimated GFR 46.19 (mL/min/1.73m2); Glucose 144 mg/dL (74-106); Potassium 5.6 mmol/L (3.5-5.1); Sodium 131 mmol/L (136-145)
[2022-10-04] MEDS: Normal Saline Flush 10 ML SYR IVP (18:45)
[2022-10-04] MEDS: Normal Saline 500 ML 250 ML IV (18:46)
[2022-10-04] MEDS: Normal Saline 250 ML IV (19:00)
[2022-10-05] VITALS (53 sets, daily range): BP systolic 80–120; BP diastolic 48–83; PULSE 58–143; RESP 13–30; TEMP 36.4–36.8; O2SAT 93–97
[2022-10-05] MEDS: Carvedilol 6.25 MG TAB PO ×5 (06:43→23:27)
[2022-10-05 08:50] LABS: Anion Gap 5.8 mmol/L (3-11); BUN 49 mg/dL (7-18); CO2 26.2 mmol/L (21.0-32.0); CREATININE 1.3 mg/dL (0.70-1.30); Calcium 8.9 mg/dL (8.5-10.1); Chloride 98 mmol/L (98-107); Estimated GFR 54.85 (mL/min/1.73m2); Glucose 99 mg/dL (74-106); Potassium 4.6 mmol/L (3.5-5.1); Sodium 130 mmol/L (136-145)
--- NOTE | 2022-10-05 09:31 | NUR.NOTE ---
White board report given to .Nursing Note:
[2022-10-05] MEDS: Apixaban 5 MG TAB 2.5 MG PO ×2 (09:46→19:32)
[2022-10-05] MEDS: Lisinopril 5 MG TAB 2.5 MG PO (09:47)
[2022-10-05] MEDS: Torsemide 20 MG TAB 10 MG PO (09:47)
--- NOTE | 2022-10-05 11:15 | NUR.NOTE ---
RN cleans patient's dentures and assisted him in placing same.Nursing Note:
[2022-10-05] MEDS: Spironolactone 25 MG TAB 12.5 MG PO (11:45)
--- NOTE | 2022-10-05 12:37 | W.PM.PROGNOT ---
Date of Service Date of service: 10/05/22 Time of Service: 10:00 Assessment and Plan Assessment and plan (1) A-fib: Status: Chronic Assessment and plan: HR elevated especially with activity. Continue coreg for now. Consider addition of or switch to digoxin or amiodarone. Continue cardiac monitoring. CCB contraindicated due to low LVEF. Suspect this is the reason for troponin elevation in addition to the CHF. Continue apixaban. Qualifiers: Atrial fibrillation type: longstanding persistent Qualified Code(s): I48.11 - Longstanding persistent atrial fibrillation (2) Acute congestive heart failure: Status: Acute Assessment and plan: Acute on chronic systolic CHF, LVEF of 20-25% on 09/17/22. Continue current tx. Qualifiers: Heart failure type: systolic Qualified Code(s): I50.21 - Acute systolic (congestive) heart failure (3) Acute kidney injury: Status: Resolved Assessment and plan: Cr back to baseline Continue to monitor (4) Renal mass: Status: Acute Assessment and plan: Patient is being worked up for an outpatient nephrectomy. He is supposed to have an outpatient cardiology preop appointment on Friday at [facility]. (5) DVT prophylaxis: Status: Acute Assessment and plan: On apixaban. (6) Discharge planning issues: Status: Acute Assessment and plan: Full code. Continues to require hospitalization. Subjective Subjective Interval history since last seen: Mr Henriquez states that, when he gets up, he does feel a little dizzy. Nursing notes that, when he gets up, his HR goes up to as high as 150s and SBP down to 80s-70s. The patient denies dizziness at the time of our talking, chest pain, shortness of breath, nausea. He is wondering what to do about his cardiology preop appointment that he had scheduled for Friday. Exam Narrative Exam Narrative: General: Pleasant elderly male, A&Ox3, NAD HEENT: EOMI, MMM Heart: irregularly irregular rhythm, no m/r/g Lungs: CTAB Abdomen: soft, nontender, nondistended Extremities: +1 edema RLE, trace edema LLE, no c/c. Objective Last Vital Signs Temp 36.7 C 10/05/22 11:17 Pulse 90 10/05/22 11:17 Resp 25 H 10/05/22 11:17 BP 97/78 L 10/05/22 11:17 Pulse Ox 96 10/05/22 11:17 Laboratory Results - last 24 hr 10/04/22 10/05/22 15:00 07:55 Sodium 131 L 130 L Potassium 5.6 H 4.6 D Chloride 97 L 98 Carbon Dioxide 24.7 26.2 Anion Gap 9.3 5.8 BUN 57 H 49 H Creatinine 1.5 H 1.3 Est GFR (CKD-EPI 2020) 46.19 54.85 Glucose 144 H 99 Calcium 8.8 8.9
--- NOTE | 2022-10-05 14:10 | NUR.NOTE ---
Patient shaves himself and washes up.Nursing Note:
--- NOTE | 2022-10-05 14:28 | NUR.NOTE ---
Patient given a new cup of ice water and some clear mixed hankins ensure.Nursing Note:
[2022-10-05] MEDS: Normal Saline Flush 10 ML SYR IVP (23:33)
[2022-10-06] VITALS (35 sets, daily range): BP systolic 86–124; BP diastolic 52–87; PULSE 63–141; RESP 14–30; TEMP 36.2–36.7; O2SAT 95–98
--- NOTE | 2022-10-06 01:41 | NUR.NOTE ---
Nursing Note:Explanation to patient that stockings were to help swelling, should wear during the day and remove at night. Patient did not want stockings removed overnight.
[2022-10-06] MEDS: Carvedilol 6.25 MG TAB PO ×2 (06:16→18:13)
[2022-10-06 06:30] LABS: HCT 39.5 % (40.0-50.0); HGB 12.9 g/dL (13.5-17.5); MCHC 32.7 % (32.0-36.0); MCV 92 fL (80-95); MPV 11.4 fL (8.0-11.0); Platelet Count 131 10^3/uL (130-400); RDW 15.2 % (11.8-14.1); RDW-SD 51.3 fL; WBC 5.32 10^3/uL (4.4-10.8)
--- NOTE | 2022-10-06 06:37 | NUR.NOTE ---
Nursing Note: Received phone call from [place], patients significant other asking if is he going to be able to walk? Explained that patient can walk he is just weak from his diagnosis of heart failure. She then stated they won't leave him alone and stated that she was talking about [employer] and the mine analyst told her to get a restraining order.
[2022-10-06 06:53] LABS: Anion Gap 8.2 mmol/L (3-11); BUN 45 mg/dL (7-18); CO2 26.8 mmol/L (21.0-32.0); CREATININE 1.1 mg/dL (0.70-1.30); Calcium 8.7 mg/dL (8.5-10.1); Chloride 96 mmol/L (98-107); Estimated GFR 67.02 (mL/min/1.73m2); Glucose 115 mg/dL (74-106); Magnesium 1.9 mg/dL (1.8-2.4); Potassium 4.4 mmol/L (3.5-5.1); Sodium 131 mmol/L (136-145)
[2022-10-06] MEDS: Spironolactone 25 MG TAB 12.5 MG PO (07:39)
[2022-10-06] MEDS: Torsemide 20 MG TAB 10 MG PO (07:39)
[2022-10-06] MEDS: Lisinopril 5 MG TAB 2.5 MG PO (07:40)
[2022-10-06] MEDS: Apixaban 5 MG TAB 2.5 MG PO ×2 (07:40→20:26)
--- NOTE | 2022-10-06 13:17 | W.PM.PROGNOT ---
Date of Service Date of service: 10/06/22 Time of Service: 13:17 Assessment and Plan Assessment and plan (1) A-fib: Status: Chronic Assessment and plan: HR seems to be overall better. Continue coreg but consider switching to BID dosing. Await cardiology consult. Continue cardiac monitoring. CCB contraindicated due to low LVEF. Suspect this is the reason for troponin elevation in addition to the CHF. Continue apixaban. Qualifiers: Atrial fibrillation type: longstanding persistent Qualified Code(s): I48.11 - Longstanding persistent atrial fibrillation (2) Acute congestive heart failure: Status: Acute Assessment and plan: Acute on chronic systolic CHF, LVEF of 20-25% on 09/17/22. Continue current tx (coreg, lisinopril, spironolactone, torsemide) Qualifiers: Heart failure type: systolic Qualified Code(s): I50.21 - Acute systolic (congestive) heart failure (3) Acute kidney injury: Status: Resolved Assessment and plan: Cr back to baseline Continue to monitor (4) Renal mass: Status: Acute Assessment and plan: Patient is being worked up for an outpatient nephrectomy. He is supposed to have an outpatient cardiology preop appointment on Friday at [facility], but it appears he will be missing it. Discussed the need for rescheduling this preop appointment. (5) DVT prophylaxis: Status: Acute Assessment and plan: On apixaban. (6) Discharge planning issues: Status: Acute Assessment and plan: Full code. Continues to require hospitalization. Transfer to medical surgical floor. Subjective Subjective Interval history since last seen: Mr Henriquez feels better today. Per nursing, his HR only goes up to 120s - 130s when up today and his SBPs have been in 100s-110s. He is not orthostatic today. Denies dizziness, chest pain, shortness of breath, nausea. Reports feeling tired. Didnt sleep well. Exam Narrative Exam Narrative: General: Pleasant elderly male, A&Ox3, NAD HEENT: EOMI, MMM Heart: irregularly irregular rhythm, no m/r/g Lungs: CTAB Abdomen: soft, nontender, nondistended Extremities: trace edema RLE, no edema LLE, no c/c. Objective Last Vital Signs Temp 36.5 C 10/06/22 08:24 Pulse 95 H 10/06/22 08:24 Resp 21 10/06/22 08:24 BP 116/76 10/06/22 08:24 Pulse Ox 97 10/06/22 08:24 Laboratory Results - last 24 hr 10/06/22 10/06/22 05:09 05:09 WBC 5.32 RBC 4.30 L Hgb 12.9 L Hct 39.5 L MCV 92 MCH 30.0 MCHC 32.7 RDW 15.2 H Plt Count 131 MPV 11.4 H Sodium 131 L Potassium 4.4 Chloride 96 L Carbon Dioxide 26.8 Anion Gap 8.2 BUN 45 H Creatinine 1.1 Est GFR (CKD-EPI 2020) 67.02 Glucose 115 H Calcium 8.7 Magnesium 1.9
[2022-10-06] MEDS: Normal Saline Flush 10 ML SYR IVP (21:32)
[2022-10-06] MEDS: Melatonin 3 MG TAB PO (21:32)
[2022-10-07] VITALS (14 sets, daily range): BP systolic 93–115; BP diastolic 48–74; PULSE 65–146; RESP 14–16; TEMP 36.2–36.9; O2SAT 93–98
[2022-10-07] MEDS: Carvedilol 6.25 MG TAB PO ×3 (05:57→23:56)
[2022-10-07 06:25] LABS: Anion Gap 4.3 mmol/L (3-11); BUN 35 mg/dL (7-18); CO2 28.7 mmol/L (21.0-32.0); CREATININE 1.2 mg/dL (0.70-1.30); Calcium 8.4 mg/dL (8.5-10.1); Chloride 97 mmol/L (98-107); Estimated GFR 60.38 (mL/min/1.73m2); Glucose 98 mg/dL (74-106); Magnesium 1.9 mg/dL (1.8-2.4); Potassium 4.5 mmol/L (3.5-5.1); Sodium 130 mmol/L (136-145)
--- NOTE | 2022-10-07 07:46 | OTIE_ITS ---
Occupational Therapy Notes Inpatient Occupational Therapy Evaluation Date: 10/07/22 Referring Doctor:Venessa Knapp MD OT Orders: Non Urgent Precautions: Fall, standard, full PATIENT PROFILE/ADMITTING DIAGNOSIS: Pt is a 81 year old male who was admitted to [facility] with a dx of renal mass, congestive heart failure, A-fib, acute kidney injury. He presented to the ED because of shortness of breath.? 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 Past Medical History: All Active Problems?(Updated 10/04/22 @ 05:26 by Deandre Benson DO) Renal mass (Acute) Aortic stenosis (Chronic) Acute congestive heart failure (Acute) Weight loss, non-intentional (Acute) Transaminitis (Acute) SOB (shortness of breath) (Acute) New onset atrial fibrillation (Acute) Elevated troponin (Acute) A-fib (Chronic) Acute kidney injury (Acute) Medical History? HTN (hypertension) Surgical History? No significant past surgical history Social History/Home Situation: Pt states that he lives in a private home. He states that he has someone stay with him. He notes that he is (I) at baseline level of function in terms of his ADL/IADL routines. Equipment owned/DME: None SUBJECTIVE: Pt was sitting in his bed when OT arrived. He states that he is (I) but is willing to participate in eval to determine needs at this time. OBJECTIVE: General Observation: Pleasant and agreeable to session, IV in (L) forearm Mental Status: A&Ox4 Pain: c/o pain in buttock which he reports is from sitting in his bed. ROM: RUE AROM WFL L UE AROM WFL STRENGTH: RUE 4/5 throughout LUE 4-/5 throughout FUNCTIONAL MOBILITY/ADLS: Transfers Supine-sit (I) Sit-supine (I) Sit-Stand (I) Stand-sit (I) Bed-Chair (I) Chair-bed (I) BATHING standing at sink with hand (A) to sink (I) with washing (B) hands and face DRESSING sitting on side of the bed Dressing LE (I) don and doffing (B) socks GROOMING Pt reports that he is (I) with his oral hygiene. He notes that he needs difference adhesive for his teeth so he is going to try to call a family member to see if they can bring him some. TOILETING on toilet (I) EATING NT at todays session pt reports that he is (I). BALANCE: Static sitting Normal Dynamic Sitting Normal Static Standing Good Dynamic Standing Good SPECIAL TESTS: Daily Activity Limitations Standardized Measure [facility] AM -PAC ?6 clicks? Daily Activity Inpatient Short Form: Raw score: 23 Standardized score: 51.12 CMS score: 15.86% INFORMED CONSENT/EDUCATION: Pt instructed in purpose of OT Consult and plan of care. ASSESSMENT: Patient is a 81-year-old male referred to occupational therapy services with diagnosis of renal mass, congestive heart failure, A-fib, acute kidney injury. Patient presents with clinical signs and symptoms consistent with dx. OT assessed pts functional (I) in his ADL/IADL routines. He is (I) at this time with his current level of function. OT and pt go over adaptive equipment which pt states that he is not sure that he needs. Pt does have a cane for functional mobility but overall was able to demonstrate (I) in his ADL/IADL routines. AMPAC score 23 Patient is assessed as a Low 98877 complexity based on the following: History: see above Examination:see functional limitations as noted above Presentation: evolving Decision Making: AMPAC score 23 GOALS Seen for OT consult only. PLAN OF CARE/TREATMENT PLAN: Based on pts current level of function, OT and pt feel that pt is at his baseline level of function in terms of his ADL/IADL routines. Based on this OT will plan to discharge pt from skilled OT services at this time. DISCHARGE RECOMMENDATIONS OT recommends return to home when medically cleared per MD. OT does discuss shower seat with pt for increased safety with his bathing routines which he denies at this time. TREATMENT TIME/MINUTES/CODES [id number], [id number], 25 minutes [facility]
[2022-10-07] MEDS: Apixaban 5 MG TAB 2.5 MG PO ×2 (08:10→20:37)
[2022-10-07] MEDS: Torsemide 20 MG TAB 10 MG PO (08:11)
[2022-10-07] MEDS: Spironolactone 25 MG TAB 12.5 MG PO (08:11)
[2022-10-07] MEDS: Normal Saline Flush 10 ML SYR IVP (08:12)
--- NOTE | 2022-10-07 10:13 | CMPROGNOTE_ITS ---
- If Service Date Differs Date of service: 10/07/22 Time of Service: 10:13 Care Management Progress Note S/O: Domingo remains inpatient at this time. Awaiting cardiology consult. OT encouraged shower chair; Domingo declined. CM consulted ARUNA who advised Domingo is ineligible for fuel assistance, and tied to multiple agencies with case management support including [facility]. CM continues to follow. A: 81 year old male admitted to [facility] 10/07/22 for JAYLEN (resolved), CHF, AFIB. P: Domingo will return home when ready per MD. He will resume RN services through [facility] and follow up with [facility] and [facility] as well as his PCP. New appointment at [facility] will be secured prior to discharge. He will transport via [facility] private vehicle.
--- NOTE | 2022-10-07 19:31 | W.PM.PROGNOT ---
Date of Service Date of service: 10/07/22 Time of Service: 19:31 Assessment and Plan Assessment and plan (1) A-fib: Status: Chronic Assessment and plan: HR seems to be overall better today, with tele showing HR 82-102 overnight. Continue coreg but consider switching to BID dosing. I am not sure if his BP will be able to tolerate that. Will speak with cardiology. Continue cardiac monitoring. CCB contraindicated due to low LVEF. Suspect this is the reason for troponin elevation in addition to the CHF. Continue apixaban. Qualifiers: Atrial fibrillation type: longstanding persistent Qualified Code(s): I48.11 - Longstanding persistent atrial fibrillation (2) Acute congestive heart failure: Status: Acute Assessment and plan: Acute on chronic systolic CHF, LVEF of 20-25% on 09/17/22. Continue current tx (coreg, lisinopril, spironolactone, torsemide) Qualifiers: Heart failure type: systolic Qualified Code(s): I50.21 - Acute systolic (congestive) heart failure (3) Acute kidney injury: Status: Resolved Assessment and plan: Cr back to baseline Continue to monitor (4) Renal mass: Status: Acute Assessment and plan: Patient is being worked up for an outpatient nephrectomy. Care management is working on rescheduling his outpatient cardiology appointment. The patient was hoping to accomplish this here, but we discussed that this may not be realistic. (5) DVT prophylaxis: Status: Acute Assessment and plan: On apixaban. (6) Discharge planning issues: Status: Acute Assessment and plan: Full code. Anticipate discharge home tomorrow (patient is advised). Subjective Subjective Interval history since last seen: Mr Henriquez states that he felt his heart race when he got worked up about something earlier today. Denied dizziness, chest pain, or shortness of breath at that time or now. He would like to be seen by cardiology before he leaves. Exam Narrative Exam Narrative: General: Pleasant elderly male, A&Ox3, mildly anxious HEENT: EOMI, MMM Heart: irregularly irregular rhythm, no m/r/g Lungs: CTAB Abdomen: soft, nontender, nondistended Extremities: trace edema RLE, TEDs, no c/c. Objective Last Vital Signs Temp 36.9 C 10/07/22 15:15 Pulse 87 10/07/22 18:25 Resp 16 10/07/22 15:15 BP 98/60 L 10/07/22 18:25 Pulse Ox 97 10/07/22 15:15 Laboratory Results - last 24 hr 10/07/22 05:35 Sodium 130 L Potassium 4.5 Chloride 97 L Carbon Dioxide 28.7 Anion Gap 4.3 BUN 35 H Creatinine 1.2 Est GFR (CKD-EPI 2020) 60.38 Glucose 98 Calcium 8.4 L Magnesium 1.9
[2022-10-07] MEDS: Melatonin 3 MG TAB PO (20:38)
[2022-10-08] VITALS (13 sets, daily range): BP systolic 91–116; BP diastolic 56–80; PULSE 74–132; RESP 16–22; TEMP 36–36.9; O2SAT 96–98
--- NOTE | 2022-10-08 05:01 | W.EVENT ---
Date of service: 10/08/22 Time of Service: 05:01 Event Note: Continues intermittently symptomatic. At present denies CP or SOB but does endorse some lightheadedness. Has missed 2 of last 5 doses of Coreg due to low BP parameters. On exam pulse 130s, BP by cuff (RA) 113/80, manual LA 122/palp. A/P Needs better rate control. First I would advise check BP on LA. Will trial additional dose Coreg now, but would consider digitalization if BP does not permit sufficient beta blockade. Time Spent with Patient Time spent in critical care(minutes): 20 Time Spent Included: Coordination of care, Chart review, Documenting critically ill care and Time at immediate bedside
[2022-10-08] MEDS: Carvedilol 6.25 MG TAB PO ×3 (05:13→18:43)
[2022-10-08 07:15] LABS: Anion Gap 7.2 mmol/L (3-11); BUN 37 mg/dL (7-18); CO2 27.8 mmol/L (21.0-32.0); CREATININE 1.2 mg/dL (0.70-1.30); Calcium 8.6 mg/dL (8.5-10.1); Chloride 97 mmol/L (98-107); Estimated GFR 60.38 (mL/min/1.73m2); Glucose 136 mg/dL (74-106); Magnesium 2.1 mg/dL (1.8-2.4); Sodium 132 mmol/L (136-145)
[2022-10-08] MEDS: Lisinopril 5 MG TAB 2.5 MG PO (08:06)
[2022-10-08] MEDS: Apixaban 5 MG TAB 2.5 MG PO ×2 (08:06→20:00)
[2022-10-08] MEDS: Spironolactone 25 MG TAB 12.5 MG PO (08:07)
[2022-10-08] MEDS: Torsemide 20 MG TAB 10 MG PO (08:07)
[2022-10-08] MEDS: Normal Saline Flush 10 ML SYR IVP ×2 (08:08→20:03)
[2022-10-08] MEDS: Amiodarone 200 MG TAB 400 MG PO ×2 (10:41→20:00)
--- NOTE | 2022-10-08 15:54 | CHAPLAIN ---
Domingo was sitting up in the chair watching tv when I visited. He said his medicines were messed up yesterday and once it was straightened out, he began to feel better. He is bored. He told me he doesn't have any friends for family except for the person who lives with him. According to Care Management notes, that is Paris.
--- NOTE | 2022-10-08 17:01 | PGE_ITS ---
Date of Service Date of service: 10/08/22 Time of Service: 17:01 Assessment and Plan Assessment and plan (1) A-fib: Status: Chronic Assessment and plan: Discussed with cardiology. Started on amiodarone. Will continue coreg at the same dosing.l Continue cardiac monitoring. CCB contraindicated due to low LVEF. Suspect this is the reason for troponin elevation in addition to the CHF. Continue apixaban. Qualifiers: Atrial fibrillation type: longstanding persistent Qualified Code(s): I48.11 - Longstanding persistent atrial fibrillation (2) Acute congestive heart failure: Status: Acute Assessment and plan: Acute on chronic systolic CHF, LVEF of 20-25% on 09/17/22. Continue current tx (coreg, lisinopril, spironolactone, torsemide) Qualifiers: Heart failure type: systolic Qualified Code(s): I50.21 - Acute systolic (congestive) heart failure (3) Acute kidney injury: Status: Resolved Assessment and plan: Cr back to baseline Continue to monitor (4) Renal mass: Status: Acute Assessment and plan: Patient is being worked up for an outpatient nephrectomy. Care management is working on rescheduling his outpatient cardiology appointment. The patient was hoping to accomplish this here, but we discussed that this may n ot be realistic. (5) DVT prophylaxis: Status: Acute Assessment and plan: On apixaban. (6) Discharge planning issues: Status: Acute Assessment and plan: Full code. Anticipate discharge home tomorrow in 24-48 hrs Subjective Subjective Interval history since last seen: Mr Henriquez states that he gets night sweats. He does not think he is febrile at that time. I had asked for him to let the nurses know if it happens again and we will take his temperature. He states when he gets worked up he feels short of breath. He is not short of breath now. Denies dizziness, chest pain, nausea. Case discussed with Dr Huntley, who recommends that the patient be initiated on amiodarone. Exam Narrative Exam Narrative: General: Pleasant elderly male, A&Ox3, mildly anxious HEENT: EOMI, MMM Heart: irregularly irregular rhythm, no m/r/g Lungs: CTAB Abdomen: soft, nontender, nondistended Extremities: trace edema RLE, TEDs, no c/c. Objective Last Vital Signs Temp 36.9 C 10/08/22 16:05 Pulse 83 10/08/22 16:05 Resp 16 10/08/22 16:05 BP 106/67 10/08/22 16:05 Pulse Ox 97 10/08/22 16:05 Laboratory Results - last 24 hr 10/08/22 06:00 Sodium 132 L Potassium 5.0 Chloride 97 L Carbon Dioxide 27.8 Anion Gap 7.2 BUN 37 H Creatinine 1.2 Est GFR (CKD-EPI 2020) 60.38 Glucose 136 H Calcium 8.6 Magnesium 2.1
--- NOTE | 2022-10-08 18:31 | PDOC.CMPRO ---
- If Service Date Differs Date of service: 10/08/22 Time of Service: 18:31 Care Management Progress Note S/O: Domingo remains inpatient at this time. Awaiting cardiology consult. OT encouraged shower chair; Domingo declined. CM consulted ARUNA who advised Domingo is ineligible for fuel assistance, and tied to multiple agencies with case management support including [employer]. CM continues to follow. A: 81 year old male admitted to [facility] 10/07/22 for JAYLEN (resolved), CHF, AFIB. P: Domingo will return home when ready per MD. He will resume RN services through [facility] and follow up with [facility] and [facility] as well as his PCP. New appointment at [facility] will be secured prior to discharge. He will transport via RCT private vehicle.
[2022-10-08] MEDS: Melatonin 3 MG TAB PO (20:00)
[2022-10-08] MEDS: Acetaminophen 325 MG TAB 650 MG PO (23:06)
[2022-10-09] VITALS (9 sets, daily range): BP systolic 95–109; BP diastolic 61–72; PULSE 60–109; RESP 16–20; TEMP 36.2–36.7; O2SAT 95–100
[2022-10-09] MEDS: LORazepam 0.5 MG TAB PO (01:33)
[2022-10-09] MEDS: Carvedilol 6.25 MG TAB PO (05:37)
[2022-10-09] MEDS: Amiodarone 200 MG TAB 400 MG PO ×2 (08:08→20:49)
[2022-10-09] MEDS: Normal Saline Flush 10 ML SYR IVP ×3 (08:08→20:50)
[2022-10-09] MEDS: Apixaban 5 MG TAB 2.5 MG PO ×2 (08:08→20:49)
[2022-10-09 08:32] LABS: Abs Immature Grans 0.02 10^3/uL (0.0-0.06); Absolute Lymphocyte Count 0.62 10^3/uL (1.2-3.4); Absolute Monocyte Count 0.32 10^3/uL (0.1-0.8); Absolute Neutrophil Count 4.91 10^3/uL (1.2-6.7); HCT 44.7 % (40.0-50.0); HGB 14.5 g/dL (13.5-17.5); Immature Grans % 0.3; Lymphocytes % 10.6; MCH 30.1 pg (27.0-33.0); MCHC 32.4 % (32.0-36.0); MCV 93 fL (80-95); MPV 10.8 fL (8.0-11.0); Monocytes % 5.5; Neutrophils % 83.6; Platelet Count 170 10^3/uL (130-400); RBC 4.81 10^6/uL (4.36-5.78); RDW-SD 53.9 fL; WBC 5.87 10^3/uL (4.4-10.8)
[2022-10-09 08:45] LABS: Anion Gap 9.7 mmol/L (3-11); BUN 50 mg/dL (7-18); CO2 25.3 mmol/L (21.0-32.0); CREATININE 1.5 mg/dL (0.70-1.30); Calcium 8.9 mg/dL (8.5-10.1); Chloride 94 mmol/L (98-107); Estimated GFR 46.19 (mL/min/1.73m2); Glucose 179 mg/dL (74-106); Magnesium 2.2 mg/dL (1.8-2.4); Sodium 129 mmol/L (136-145)
--- NOTE | 2022-10-09 08:45 | RT.EKG_ITS ---
APPROVED REPORT Exam: Resting ECG Reason for Exam: hyperkalemia Patient Location: I HR:117 bpm ECG Measurements Heart Rate 117 [address] [place] [id number] P [id number] QRSd 95 QRS 71 QT 356 T 228 QTc 497 Conclusion Atrial fibrillation...? atrial activity Ventricular premature complex...V complex w/ short R-R interval anteroseptal infarct, .Q, ST>0.15mV, T neg, V1-V2 Left ventricular hypertrophy with repolarization abnormalities
[2022-10-09 08:53] LABS: Potassium 6.2 mmol/L (3.5-5.1)
[2022-10-09] MEDS: Insulin REGULAR-Human 100 UNITS/ML UNIT IV (10:18)
[2022-10-09] MEDS: Dextrose 50%-Water 25 GM/50 ML SYR IVP (10:18)
[2022-10-09] MEDS: Sodium Zirconium Cyclosilicate 10 GM PKT PO ×3 (10:19→22:09)
[2022-10-09 12:43] LABS: Anion Gap 9.1 mmol/L (3-11); BUN 52 mg/dL (7-18); CO2 24.9 mmol/L (21.0-32.0); CREATININE 1.7 mg/dL (0.70-1.30); Calcium 8.7 mg/dL (8.5-10.1); Chloride 94 mmol/L (98-107); Estimated GFR 39.75 (mL/min/1.73m2); Glucose 245 mg/dL (74-106); Sodium 128 mmol/L (136-145)
--- NOTE | 2022-10-09 16:04 | PDOC.CMPRO ---
- If Service Date Differs Date of service: 10/09/22 Time of Service: 16:04 Care Management Progress Note S/O: Domingo remains inpatient at this time, CM supported him in contacting his bank and completing paperwork, as well as his life insurance company at his request. CM spoke with ARUNA re: medication copay for new prescription. Unfortunately income limits for Domingo and Paris's household make them ineligible for most support services, per Rachel. CM continues to follow. A: 81 year old male admitted to [facility] 10/07/22 for JAYLEN (resolved), CHF, AFIB. P: Domingo will return home when ready per MD. He will resume RN services through [facility] and follow up with [facility] and [facility] as well as his PCP. New appointment at [facility] will be secured prior to discharge. CM will support Domingo in attaining and paying for new prescriptions and set up RCT to transport him home.
--- NOTE | 2022-10-09 18:19 | PGE_ITS ---
Date of Service Date of service: 10/09/22 Time of Service: 18:20 Assessment and Plan Assessment and plan (1) A-fib: Status: Chronic Assessment and plan: Discussed with cardiology. Continue PO amiodarone. D/c coreg. Continue cardiac monitoring. CCB contraindicated due to low LVEF. Suspect this is the reason for troponin elevation in addition to the CHF. Continue apixaban. Qualifiers: Atrial fibrillation type: longstanding persistent Qualified Code(s): I48.11 - Longstanding persistent atrial fibrillation (2) Hyperkalemia: Status: Acute Assessment and plan: s/p insulin/D50 and lokelma. Already improved. Hold hsarlene-i and spironolactone. renal diet. recheck chemistry in am (3) Acute congestive heart failure: Status: Acute Assessment and plan: Acute on chronic systolic CHF, LVEF of 20-25% on 09/17/22. Continue current tx. Hyperkalemic - holding acei, spironolactone. We d/c'ed coreg in favor of amiodarone. Qualifiers: Heart failure type: systolic Qualified Code(s): I50.21 - Acute systolic (congestive) heart failure (4) Acute kidney injury: Status: Resolved Assessment and plan: Cr back to baseline Continue to monitor (5) Renal mass: Status: Acute Assessment and plan: Patient is being worked up for an outpatient nephrectomy. Care management is working on rescheduling his outpatient cardiology appoint ment. The patient was hoping to accomplish this here, but we discussed that this may not be realistic. (6) DVT prophylaxis: Status: Acute Assessment and plan: On apixaban. (7) Discharge planning issues: Status: Acute Assessment and plan: Full code. Anticipate discharge home tomorrow Subjective Subjective Interval history since last seen: Mr Henriquez states that he did have two episodes of night sweats last night. He told the nurses and was told he did not have a fever when they checked his temperature. He also feels short of breath at night. We discussed how he could try to sleep with more pillows or elevate head of the bed. He is concerned he might need oxygen at night. We discussed that we will do an overnight oximetry assessment on him. Exam Narrative Exam Narrative: General: Pleasant elderly male, A&Ox3, mildly anxious HEENT: EOMI, MMM Heart: irregularly irregular rhythm, no m/r/g Lungs: CTAB Abdomen: soft, nontender, nondistended Extremities: trace edema RLE, TEDs, no c/c. Objective Last Vital Signs Temp 36.2 C L 10/09/22 15:02 Pulse 60 10/09/22 15:02 Resp 16 10/09/22 15:02 BP 109/72 10/09/22 15:02 Pulse Ox 96 10/09/22 15:02 Laboratory Results - last 24 hr 10/09/22 10/09/22 10/09/22 08:15 08:15 12:25 WBC 5.87 RBC 4.81 Hgb 14.5 Hct 44.7 MCV 93 MCH 30.1 MCHC 32.4 RDW 16.0 H Plt Count 170 MPV 10.8 Immature Gran % 0.3 Neutrophils % 83.6 Lymphocytes % 10.6 Monocytes % 5.5 Eosinophils % 0.0 Basophils % 0.0 Nucleated RBC % 0.0 Absolute Neutrophils 4.91 Absolute Lymphocytes 0.62 L Absolute Monocytes 0.32 Absolute Eosinophils 0.00 Absolute Basophils 0.00 Sodium 129 L 128 L Potassium 6.2 H* D 5.0 D Chloride 94 L 94 L Carbon Dioxide 25.3 24.9 Anion Gap 9.7 9.1 BUN 50 H 52 H Creatinine 1.5 H 1.7 H Est GFR (CKD-EPI 2020) 46.19 39.75 Glucose 179 H 245 H Calcium 8.9 8.7 Magnesium 2.2
[2022-10-09] MEDS: Melatonin 3 MG TAB PO (22:07)
[2022-10-09] MEDS: Acetaminophen 325 MG TAB 650 MG PO (22:08)
[2022-10-10] VITALS (9 sets, daily range): BP systolic 103–120; BP diastolic 63–81; PULSE 65–117; RESP 14–24; TEMP 35.3–36.6; O2SAT 96–100
--- NOTE | 2022-10-10 | DI.RAD_ITS ---
Exam(s) XR PORTABLE CHEST AP EXAM: XR PORTABLE CHEST AP CLINICAL HISTORY: shortness of breath, ?CHF TECHNIQUE: COMPARISON: CR,XR XR PORTABLE CHEST AP from 10/04/2022 FINDINGS: The heart appears mildly enlarged. There may be a small right pleural effusion period there is quest ion of increased prominence of pulmonary markings in comparison with prior examination of October 04, early CHF not excluded. IMPRESSION: Question early CHF, PA and lateral chest may be obtained clinically appropriate . RADIATION DOSE DELIVERED: Total DLP
[2022-10-10 05:39] LABS: Abs Immature Grans 0.03 10^3/uL (0.0-0.06); Absolute Basophil Count 0.01 10^3/uL (0.0-0.2); Absolute Monocyte Count 0.54 10^3/uL (0.1-0.8); Absolute Neutrophil Count 6.56 10^3/uL (1.2-6.7); Basophils % 0.1; HCT 42.3 % (40.0-50.0); HGB 14.3 g/dL (13.5-17.5); Immature Grans % 0.4; Lymphocytes % 11.2; MCH 30.8 pg (27.0-33.0); MCHC 33.8 % (32.0-36.0); MCV 91 fL (80-95); Monocytes % 6.7; Neutrophils % 81.6; Platelet Count 180 10^3/uL (130-400); RBC 4.65 10^6/uL (4.36-5.78); RDW 15.7 % (11.8-14.1); RDW-SD 51.3 fL; WBC 8.04 10^3/uL (4.4-10.8)
[2022-10-10 06:03] LABS: Anion Gap 12.1 mmol/L (3-11); BUN 63 mg/dL (7-18); CO2 23.9 mmol/L (21.0-32.0); CREATININE 1.6 mg/dL (0.70-1.30); Calcium 8.9 mg/dL (8.5-10.1); Chloride 91 mmol/L (98-107); Estimated GFR 42.75 (mL/min/1.73m2); Glucose 182 mg/dL (74-106); Magnesium 2.2 mg/dL (1.8-2.4); Sodium 127 mmol/L (136-145)
[2022-10-10] MEDS: Sodium Zirconium Cyclosilicate 10 GM PKT PO ×3 (06:03→22:40)
[2022-10-10] MEDS: Amiodarone 200 MG TAB 400 MG PO ×2 (08:32→21:23)
[2022-10-10] MEDS: Torsemide 20 MG TAB 10 MG PO (08:32)
[2022-10-10] MEDS: Apixaban 5 MG TAB 2.5 MG PO (08:33)
--- NOTE | 2022-10-10 16:06 | W.PM.PROGNOT ---
Date of Service Date of service: 10/10/22 Time of Service: 16:06 Assessment and Plan Assessment and plan (1) Shortness of breath: Status: Acute Assessment and plan: ? worsening CHF. Obtain CXR. Consider anxiety also. Consider pulmonary toxicity from amiodarone, though I would expect actual respiratory symptoms. Rx IS. Will reattempt overnight oximetry tonight as well. (2) A-fib: Status: Chronic Assessment and plan: Rates much better controlled. Continue PO amiodarone. Coreg d/c'ed. Continue cardiac monitoring. CCB contraindicated due to low LVEF. Suspect this is the reason for troponin elevation in addition to the CHF. Continue apixaban. Qualifiers: Atrial fibrillation type: longstanding persistent Qualified Code(s): I48.11 - Longstanding persistent atrial fibrillation (3) Hyperkalemia: Status: Acute Assessment and plan: s/p insulin/D50 and lokelma. Stable. Resume torsemide. Hold sharlene-i and spironolactone. renal diet. recheck chemistry in am (4) Acute congestive heart failure: Status: Acute Assessment and plan: Acute on chronic systolic CHF, LVEF of 20-25% on 09/17/22. Repeating CXR. Torsemide resumed. May need an additional dose. Hyperkalemic - holding acei, spironolactone. We d/c'ed coreg in favor of amiodarone. Qualifiers: Heart failure type: systolic Qualified Code(s): I50.21 - Acute systolic (congestive) heart failure (5) Acute kidney injury: Status: Resolved Assessment and plan: Cr back to baseline Continue to monitor (6) Renal mass: Status: Acute Assessment and plan: Patient is being worked up for an outpatient nephrectomy. Care management is working on rescheduling his outpatient cardiology appointment. The patient was hoping to accomplish this here, but we discussed that this may not be realistic. (7) DVT prophylaxis: Status: Acute Assessment and plan: On apixaban. (8) Discharge planning issues: Status: Acute Assessment and plan: Full code. Anticipate discharge home tomorrow Subjective Subjective Interval history since last seen: Mr Henriquez states he is short of breath. He is not requiring oxygen and not dyspneic/tachypneic. He does not feel his heart racing. He is not having CP, dizziness, or nausea. He reported shortness of breath last night as well, when his O2 sats were 100% and was placed on O2 at 1L with relief. Exam Narrative Exam Narrative: General: Pleasant elderly male, A&Ox3, anxious HEENT: EOMI, MMM Heart: irregularly irregular rhythm, no m/r/g Lungs: diminished at B bases Abdomen: soft, nontender, nondistended Extremities: +2 edema BLE, TEDs Objective Last Vital Signs Temp 35.3 C L 10/10/22 15:18 Pulse 117 H 10/10/22 15:18 Resp 24 10/10/22 15:18 BP 104/75 10/10/22 15:18 Pulse Ox 98 10/10/22 15:18 Laboratory Results - last 24 hr 10/10/22 10/10/22 05:25 05:25 WBC 8.04 RBC 4.65 Hgb 14.3 Hct 42.3 MCV 91 MCH 30.8 MCHC 33.8 RDW 15.7 H Plt Count 180 MPV 11.0 Immature Gran % 0.4 Neutrophils % 81.6 Lymphocytes % 11.2 Monocytes % 6.7 Eosinophils % 0.0 Basophils % 0.1 Nucleated RBC % 0.0 Absolute Neutrophils 6.56 Absolute Lymphocytes 0.90 L Absolute Monocytes 0.54 Absolute Eosinophils 0.00 Absolute Basophils 0.01 Sodium 127 L Potassium 5.0 Chloride 91 L Carbon Dioxide 23.9 Anion Gap 12.1 H BUN 63 H Creatinine 1.6 H Est GFR (CKD-EPI 2020) 42.75 Glucose 182 H Calcium 8.9 Magnesium 2.2
--- NOTE | 2022-10-10 17:04 | CMPROGNOTE_ITS ---
- If Service Date Differs Date of service: 10/10/22 Time of Service: 17:04 Care Management Progress Note S/O: Domingo remains inpatient at this time, CM continues to support Domingo and Paris in managing new information and discharge planning, as they both struggle to intake new information, process and make decisions. Both remain quite pleasant in interaction, especially when provided time to process and ask questions re: plan of care and review details. Unfortunately income limits for Domingo and Paris's household make them ineligible for most support services, per Rachel (ARUNA). CM continues to follow. A: 81 year old male admitted to [facility] 10/07/22 for JAYLEN (resolved), CHF, AFIB. P: Domingo will return home when ready per MD. Paris is coordinating new recliner and hospital bed, with community based support. CM reviewed options and contact information to support Paris in her efforts. He will resume RN services through [facility] and follow up with [facility] and [facility] as well as his PCP. New appointment at [facility] will be secured prior to discharge. CM will support Domingo in attaining and paying for new prescriptions and set up RCT to transport him home.
[2022-10-10] MEDS: Furosemide 40 MG/4 ML VIAL IVP (18:26)
--- NOTE | 2022-10-10 19:21 | NUR.NOTE ---
Nursing Note: Late stat order for lasix, administered at 18 30 next nurse was made aware
[2022-10-10] MEDS: Melatonin 3 MG TAB PO (21:23)
[2022-10-10] MEDS: Apixaban 2.5 MG TAB PO (21:24)
[2022-10-11] VITALS (9 sets, daily range): BP systolic 101–111; BP diastolic 64–79; PULSE 64–122; RESP 16–18; TEMP 35.3–36.6; O2SAT 94–100
[2022-10-11] MEDS: Mylanta Suspension 30 ML CUP PO (05:05)
[2022-10-11] MEDS: Sodium Zirconium Cyclosilicate 10 GM PKT PO (06:21)
[2022-10-11 06:25] LABS: Abs Immature Grans 0.03 10^3/uL (0.0-0.06); Absolute Lymphocyte Count 0.64 10^3/uL (1.2-3.4); Absolute Monocyte Count 0.53 10^3/uL (0.1-0.8); Absolute Neutrophil Count 6.85 10^3/uL (1.2-6.7); HCT 43.6 % (40.0-50.0); HGB 14.6 g/dL (13.5-17.5); Immature Grans % 0.4; MCH 30.3 pg (27.0-33.0); MCHC 33.5 % (32.0-36.0); MCV 91 fL (80-95); MPV 11.7 fL (8.0-11.0); Monocytes % 6.6; Platelet Count 167 10^3/uL (130-400); RBC 4.82 10^6/uL (4.36-5.78); RDW 15.4 % (11.8-14.1); RDW-SD 50.4 fL; WBC 8.05 10^3/uL (4.4-10.8)
[2022-10-11 06:33] LABS: Anion Gap 15.9 mmol/L (3-11); BUN 77 mg/dL (7-18); CO2 21.1 mmol/L (21.0-32.0); CREATININE 2.1 mg/dL (0.70-1.30); Calcium 8.7 mg/dL (8.5-10.1); Chloride 87 mmol/L (98-107); Estimated GFR 30.85 (mL/min/1.73m2); Glucose 141 mg/dL (74-106); Magnesium 2.4 mg/dL (1.8-2.4); Potassium 4.7 mmol/L (3.5-5.1)
[2022-10-11 06:51] LABS: Sodium 124 mmol/L (136-145)
[2022-10-11] MEDS: Torsemide 20 MG TAB 10 MG PO (07:57)
[2022-10-11] MEDS: Amiodarone 200 MG TAB 400 MG PO ×2 (07:58→20:06)
[2022-10-11] MEDS: Apixaban 2.5 MG TAB PO ×2 (07:58→20:06)
[2022-10-11] MEDS: Empaglifozin 10 MG TAB PO (10:41)
--- NOTE | 2022-10-11 12:52 | CMPROGNOTE_ITS ---
- If Service Date Differs Date of service: 10/11/22 Time of Service: 12:52 Care Management Progress Note S/O: Domingo remains inpatient at this time, CM continues to support Domingo and Paris in managing new information and discharge planning, as they both struggle to intake new information, process and make decisions. Both remain quite pleasant in interaction, especially when provided time to process and ask questions re: plan of care and review details. Unfortunately income limits for Domingo and Paris's household make them ineligible for most support services, per Rachel (ARUNA). CM sat with Dr. Espinosa and Domingo as he explained fluid restriction and starting new medication Jardiance. CM reviewed information with Domingo afterward to ensure understanding. Anticipate Domingo will continue to be evaluated for home O2, as per MD sats are dropping at night, which is creating more stress on his heart. CM continues to follow. A: 81 year old male admitted to [facility] 10/07/22 for JAYLEN (resolved), CHF, AFIB. P: Domingo will return home when ready per MD. Paris is coordinating new recliner and hospital bed, with community based support. CM reviewed options and contact information to support Paris in her efforts. He will resume RN services through [facility] and follow up with [facility] and [facility] as well as his PCP. New appointment at [facility] will be secured prior to discharge. CM will support Domingo in attaining and paying for new pres criptions and set up RCT to transport him home.
--- NOTE | 2022-10-11 15:06 | W.PM.PROGNOT ---
Date of Service Date of service: 10/11/22 Time of Service: 15:06 Assessment and Plan Assessment and plan (1) Shortness of breath: Status: Acute Assessment and plan: Questionably d/t anxiety. O2 saturations remain in normal range. CXR on 10/10: Questionable increased prominence of pulmonary markings. Likely CHF exacerbation. . Rx IS. Overnight oximetry results: Time with O2 saturations <88% was 85 mins. (2) A-fib: Status: Chronic Assessment and plan: Rates much better controlled. Continue PO amiodarone. Coreg d/c'ed. Continue cardiac monitoring. CCB contraindicated due to low LVEF. Suspect this is the reason for troponin elevation in addition to the CHF. Continue apixaban. Qualifiers: Atrial fibrillation type: longstanding persistent Qualified Code(s): I48.11 - Longstanding persistent atrial fibrillation (3) Hyperkalemia: Status: Acute Assessment and plan: s/p insulin/D50 and lokelma. Stable. Resume torsemide. Holding sharlene-i and spironolactone. renal diet. recheck chemistry in am (4) Acute congestive heart failure: Status: Acute Assessment and plan: Acute on chronic systolic CHF, LVEF of 20-25% on 09/17/22. CXR: questionably increased pulmonary edema as mentioned above. Torsemide resumed. Hyperkalemic - holding acei, spironolactone. d/c'ed coreg in favor of amiodarone. With hyponatremia worsening, will restrict fluids to 1200ml daily. Qualifiers: Heart failure type: systolic Qualified Code(s): I50.21 - Acute systolic (congestive) heart failure (5) Acute kidney injury: Status: Resolved Assessment and plan: Cr had returned to baseline but increased today to 2.1. Continue to monitor, particularly in background of diuresing and fluid restriction. (6) Renal mass: Status: Acute Assessment and plan: Patient is being worked up for an outpatient nephrectomy. Care management is working on rescheduling his outpatient cardiology appointment. The patient was hoping to accomplish this here, but we discussed that this may not be realistic. (7) DVT prophylaxis: Status: Acute Assessment and plan: On apixaban. (8) Discharge planning issues: Status: Acute Assessment and plan: Full code. Anticipate discharge home tomorrow (9) Hyponatremia: Status: Acute Assessment and plan: Na was 134 on admission; now 124. Fluid restriction. Cont Toresemide. Monitor. Subjective Subjective Patient reports: tolerating a regular diet, shortness of breath (Intermittently. ) and afebrile; denies nausea or vomiting Exam Narrative Exam Narrative: General: Pleasant elderly male, sitting in chair. Anxious. HEENT: EOMI, MMM Heart: irregularly irregular rhythm, no m/r/g Lungs: diminished at B bases. Nonlabored breathing. Abdomen: soft, nontender, nondistended Extremities: +2 edema BLE, TEDs in place. Objective Last Vital Signs Temp 35.3 C L 10/11/22 11:26 Pulse 83 10/11/22 11:26 Resp 17 10/11/22 11:26 BP 109/75 10/11/22 11:26 Pulse Ox 98 10/11/22 11:26 Laboratory Results - last 24 hr 10/11/22 10/11/22 05:54 05:54 WBC 8.05 RBC 4.82 Hgb 14.6 Hct 43.6 MCV 91 MCH 30.3 MCHC 33.5 RDW 15.4 H Plt Count 167 MPV 11.7 H Immature Gran % 0.4 Neutrophils % 85.0 Lymphocytes % 8.0 Monocytes % 6.6 Eosinophils % 0.0 Basophils % 0.0 Nucleated RBC % 0.0 Absolute Neutrophils 6.85 H Absolute Lymphocytes 0.64 L Absolute Monocytes 0.53 Absolute Eosinophils 0.00 Absolute Basophils 0.00 Sodium 124 L Potassium 4.7 Chloride 87 L Carbon Dioxide 21.1 Anion Gap 15.9 H BUN 77 H Creatinine 2.1 H Est GFR (CKD-EPI 2020) 30.85 Glucose 141 H Calcium 8.7 Magnesium 2.4
[2022-10-11] MEDS: Melatonin 3 MG TAB PO (20:06)
[2022-10-12] VITALS (13 sets, daily range): BP systolic 92–113; BP diastolic 59–77; PULSE 51–121; RESP 18–22; TEMP 36.3–36.7; O2SAT 94–98
[2022-10-12 06:18] LABS: Anion Gap 13.5 mmol/L (3-11); CO2 25.5 mmol/L (21.0-32.0); CREATININE 2.3 mg/dL (0.70-1.30); Calcium 8.7 mg/dL (8.5-10.1); Chloride 89 mmol/L (98-107); Estimated GFR 27.66 (mL/min/1.73m2); Glucose 132 mg/dL (74-106); Sodium 128 mmol/L (136-145)
[2022-10-12 06:22] LABS: BUN 89 mg/dL (7-18)
[2022-10-12] MEDS: Apixaban 2.5 MG TAB PO ×2 (08:15→19:30)
[2022-10-12] MEDS: Amiodarone 200 MG TAB 400 MG PO ×2 (08:15→19:30)
[2022-10-12] MEDS: Empaglifozin 10 MG TAB PO (08:16)
[2022-10-12] MEDS: Torsemide 20 MG TAB 10 MG PO (08:16)
[2022-10-12] MEDS: Normal Saline Flush 10 ML SYR IVP (08:17)
[2022-10-12] MEDS: Metoprolol 5 MG/5 ML VIAL 2.5 MG IVP (09:46)
[2022-10-12 14:19] LABS: Lab Add On Test DONE
--- NOTE | 2022-10-12 14:59 | W.PM.PROGNOT ---
Date of Service Date of service: 10/12/22 Time of Service: 14:59 Assessment and Plan Assessment and plan (1) Shortness of breath: Status: Acute Assessment and plan: Improved O2 saturations remain in normal range. CXR on 10/10: Questionable increased prominence of pulmonary markings. Likely CHF exacerbation. . Rx IS. Overnight oximetry results: Time with O2 saturations <88% was 85 mins. Results of repeat overnight oximetry with O2 titration is pending. (2) A-fib: Status: Chronic Assessment and plan: Rates in the low 100's this AM. Administered metoprolol 2.5mg IV x 1 and rate decreased into the 50's. Continue PO amiodarone. Coreg d/c'd but may need to restart at a low dose. Continue cardiac monitoring. CCB contraindicated due to low LVEF. Suspect this is the reason for troponin elevation in addition to the CHF. Continue apixaban. Qualifiers: Atrial fibrillation type: longstanding persistent Qualified Code(s): I48.11 - Longstanding persistent atrial fibrillation (3) Hyperkalemia: Status: Acute Assessment and plan: s/p insulin/D50 and lokelma. Stable. Resume torsemide. Holding sharlene-i Restart spironolactone. renal diet. recheck chemistry in am (4) Acute congestive heart failure: Status: Acute Assessment and plan: Acute on chronic systolic CHF, LVEF of 20-25% on 09/17/22. CXR: questionably increased pulmonary edema as mentioned above. Torsemide resumed. Spironolactone resumed (first resumed dose will be on 10/13). Hyperkalemic - holding acei d/c'ed coreg in favor of amiodarone. With hyponatremia worsening, will restrict fluids. Qualifiers: Heart failure type: systolic Qualified Code(s): I50.21 - Acute systolic (congestive) heart failure (5) Acute kidney injury: Status: Resolved Assessment and plan: Cr had returned to baseline but increased: 2.1> 2.3 Continue to monitor, particularly in background of diuresing and fluid restriction. (6) Renal mass: Status: Acute Assessment and plan: Patient is being worked up for an outpatient nephrectomy. Care management is working on rescheduling his outpatient cardiology appointment. The patient was hoping to accomplish this here, but we discussed that this may not be realistic. (7) DVT prophylaxis: Status: Acute Assessment and plan: On apixaban. (8) Discharge planning issues: Status: Acute Assessment and plan: Full code. Anticipate discharge home tomorrow (9) Hyponatremia: Status: Acute Assessment and plan: Na was 134 on admission; now 128 (was 124 yesterday). Fluid restriction. Cont Toresemide and restarted spironolactone. Monitor. Subjective Subjective Patient reports: no new complaints, feels better, tolerating a regular diet and afebrile; denies nausea, vomiting or shortness of breath Exam Narrative Exam Narrative: General: Pleasant elderly male, sitting in chair. Today does not appear anxious. HEENT: EOMI, MMM Heart: irregularly irregular rhythm, no murmur Lungs: diminished at B bases. Nonlabored breathing. Abdomen: soft, nontender, nondistended Extremities: +2 edema BLE, TEDs in place. Objective Last Vital Signs Temp 36.3 C L 10/12/22 11:26 Pulse 51 L 10/12/22 11:26 Resp 18 10/12/22 11:26 BP 108/76 10/12/22 11:26 Pulse Ox 98 10/12/22 11:26 Laboratory Results - last 24 hr 10/12/22 10/12/22 05:43 14:18 Sodium 128 L Potassium 4.0 Chloride 89 L Carbon Dioxide 25.5 Anion Gap 13.5 H BUN 89 H* Creatinine 2.3 H Est GFR (CKD-EPI 2020) 27.66 Glucose 132 H Calcium 8.7 Add-On Test Request DONE
[2022-10-12 15:03] LABS: NT-proBNP > 35000 pg/mL (<300)
[2022-10-12] MEDS: Melatonin 3 MG TAB PO (22:45)
[2022-10-13] VITALS (9 sets, daily range): BP systolic 90–114; BP diastolic 66–83; PULSE 69–122; RESP 14–19; TEMP 36.1–36.4; O2SAT 93–99
[2022-10-13 06:55] LABS: ALT 73 U/L (16-63); AST 33 U/L (15-37); Alkaline Phosphatase 103 U/L (46-116); Anion Gap 11.7 mmol/L (3-11); Bilirubin, Total 1.3 mg/dL (0.2-1.0); CO2 26.3 mmol/L (21.0-32.0); CREATININE 2.3 mg/dL (0.70-1.30); Calcium 8.4 mg/dL (8.5-10.1); Chloride 89 mmol/L (98-107); Estimated GFR 27.66 (mL/min/1.73m2); Glucose 124 mg/dL (74-106); Potassium 3.5 mmol/L (3.5-5.1); Sodium 127 mmol/L (136-145); Total Protein 5.9 g/dL (6.4-8.2)
[2022-10-13 06:57] LABS: BUN 96 mg/dL (7-18)
[2022-10-13] MEDS: Torsemide 20 MG TAB 10 MG PO (07:52)
[2022-10-13] MEDS: Amiodarone 200 MG TAB 400 MG PO ×2 (07:53→20:25)
[2022-10-13] MEDS: Apixaban 2.5 MG TAB PO ×2 (07:54→20:25)
[2022-10-13] MEDS: Empaglifozin 10 MG TAB PO (07:54)
[2022-10-13] MEDS: Spironolactone 25 MG TAB 12.5 MG PO (08:22)
[2022-10-13] MEDS: Metoprolol 12.5 MG TAB PO (09:22)
--- NOTE | 2022-10-13 16:19 | NUR.NOTE ---
Nursing Note: bleed through on dressing observed during am care. reported to RN. bserved wound while RM removed mepelex dressing and replaced. wound is open and spotting on bed sheets and chair despite dressing change.
--- NOTE | 2022-10-13 18:35 | W.PM.PROGNOT ---
Date of Service Date of service: 10/13/22 Time of Service: 18:35 Assessment and Plan Assessment and plan (1) Shortness of breath: Status: Acute Assessment and plan: Improved O2 saturations remain in normal range. CXR on 10/10: Questionable increased prominence of pulmonary markings. Likely CHF exacerbation. . Rx IS. Overnight oximetry results: Time with O2 saturations <88% was 85 mins. Results of repeat overnight oximetry with O2 titration is pending. (2) A-fib: Status: Chronic Assessment and plan: Rates up to 120 today. Increased metoprolol from 12.5 mg BID to 25mg BID Continue PO amiodarone. Continue cardiac monitoring. CCB contraindicated due to low LVEF. Suspect this is the reason for troponin elevation in addition to the CHF. Continue apixaban. Qualifiers: Atrial fibrillation type: longstanding persistent Qualified Code(s): I48.11 - Longstanding persistent atrial fibrillation (3) Hyperkalemia: Status: Acute Assessment and plan: s/p insulin/D50 and lokelma. Now low normal at 3.5. Resume torsemide. Holding sharlene-i d/t JAYLEN Restart spironolactone. renal diet. recheck chemistry in am (4) Acute congestive heart failure: Status: Acute Assessment and plan: Acute on chronic systolic CHF, LVEF of 20-25% on 09/17/22. CXR: questionably increased pulmonary edema as mentioned above. Torsemide resumed. Spironolactone resumed d/c'ed coreg in favor of amiodarone but now on metoprolol Given increased BUN and creatinine will no longer enforce a fluid restriction. Qualifiers: Heart failure type: systolic Qualified Code(s): I50.21 - Acute systolic (congestive) heart failure (5) Acute kidney injury: Status: Resolved Assessment and plan: Cr had returned to baseline but increased: 2.1> 2.3 Continue to monitor, particularly in background of diuresing. (6) Renal mass: Status: Acute Assessment and plan: Patient is being worked up for an outpatient nephrectomy. Care management is working on rescheduling his outpatient cardiology appointment. The patient was hoping to accomplish this here, but we discussed that this may not be realistic. (7) DVT prophylaxis: Status: Acute Assessment and plan: On apixaban. (8) Discharge planning issues: Status: Acute Assessment and plan: Full code. Anticipate discharge home tomorrow (9) Hyponatremia: Status: Acute Assessment and plan: Na was 134 on admission; now 127 (was 128 yesterday). Cont Toresemide and spironolactone. No longer on fluid restriction d/t elevating BUN and creatinine. Monitor. Subjective Subjective Patient reports: no new complaints, tolerating a regular diet and afebrile; denies diarrhea, nausea, vomiting or shortness of breath (sedentary.) Exam Narrative Exam Narrative: General: Pleasant elderly male. HEENT: EOMI, MMM Heart: irregularly irregular rhythm, tachy, no murmur Lungs: diminished at B bases. Nonlabored breathing. Abdomen: soft, nontender, nondistended Extremities: +2 edema BLE, TEDs in place. Objective Last Vital Signs Temp 36.4 C L 10/13/22 15:04 Pulse 122 H 10/13/22 15:04 Resp 19 10/13/22 15:04 BP 114/83 10/13/22 15:04 Pulse Ox 94 10/13/22 15:04 Laboratory Results - last 24 hr 10/13/22 06:00 Sodium 127 L Potassium 3.5 Chloride 89 L Carbon Dioxide 26.3 Anion Gap 11.7 H BUN 96 H* Creatinine 2.3 H Est GFR (CKD-EPI 2020) 27.66 Glucose 124 H Calcium 8.4 L Total Bilirubin 1.3 H AST 33 ALT 73 H Alkaline Phosphatase 103 Total Protein 5.9 L Albumin 3.0 L
[2022-10-13] MEDS: Metoprolol 12.5 MG TAB 25 MG PO (20:25)
[2022-10-13] MEDS: Melatonin 3 MG TAB PO (20:26)
[2022-10-14] VITALS (8 sets, daily range): BP systolic 92–114; BP diastolic 52–75; PULSE 51–100; RESP 18–22; TEMP 36–36.7; O2SAT 93–97
[2022-10-14 06:43] LABS: ALT 80 U/L (16-63); AST 43 U/L (15-37); Albumin 2.9 g/dL (3.4-5.0); Alkaline Phosphatase 134 U/L (46-116); Anion Gap 12.8 mmol/L (3-11); CO2 22.2 mmol/L (21.0-32.0); CREATININE 2.6 mg/dL (0.70-1.30); Calcium 8.3 mg/dL (8.5-10.1); Chloride 87 mmol/L (98-107); Estimated GFR 23.87 (mL/min/1.73m2); Glucose 144 mg/dL (74-106); Potassium 4.8 mmol/L (3.5-5.1); Total Protein 6.1 g/dL (6.4-8.2)
[2022-10-14 06:58] LABS: BUN 103 mg/dL (7-18)
[2022-10-14 06:59] LABS: Sodium 122 mmol/L (136-145)
--- NOTE | 2022-10-14 08:01 | PCNE_ITS ---
Date of service: 10/14/22 Time of Service: 08:01 History of Present Illness Narrative: From H and P This 81-year-old male is here because of shortness of breath.? He has been recently diagnosed with atrial fibrillation, heart failure and a renal mass that is likely malignant.? He has an appointment with cardiology in 3 days? in [facility].? He says this is a preoperative evaluation to determine if he is stable to have the renal mass removed surgically.? He has had some difficulty with shortness of breath over the last few days but got worse yesterday afternoon.? He says he has been taking his medicine as directed except he missed yesterday afternoon's metoprolol.? He has had no chest pain with this.? He lives with a friend who helps him manage his needs at home.? He says he has no other family. ? Interim Hx: Patient states that he just keeps getting weaker and weaker. He does not know what is going on with him and does not understand why they are not fixing him. When I talked to him about his kidney mass and that it was probably cancer, he s tated that this was the first he heard that he might have cancer. He is slated to go home with oxygen and some durable medical supplies in place such as hospital bed. He lives with a woman named Paris. She is helping to coordinate things. He continues to gerri between CHF and dehydration. He states over and over again that he does not know what is happening to him and no one is telling him. He has not had physical therapy Consults Consult date: 10/14/22 Requesting physician: Venessa Knapp Assessment and Plan Assessment and plan (1) Hyponatremia: Status: Acute (2) Shortness of breath: Status: Acute (3) Renal mass: Status: Acute (4) Acute congestive heart failure: Status: Acute Qualifiers: Heart failure type: systolic Qualified Code(s): I50.21 - Acute systolic (congestive) heart failure (5) Palliative care patient: Status: Acute Assessment and plan: Domingo does not seem to be grasping what has been said to him. He keeps thinking that it he will be fixed by the doctors. He does not understand his present heart condition nor does he understand what is going on with his kidneys. I offered to come back and meet with he Xochitl later today but he was not in favor of including her. He does not want her included even on speaker phone. He said that it was all right for me to come back and talk with him. Prognostic awareness is very very low. Discussion regarding CODE STATUS. Will address this again later today. I spoke with Erin, care management, she is aware that I am going to meet with him later today Addendum: I came in to speak Chandu later this evening. I had explained that he had asked me to come back and go over his care and what the doctors know about him at this point. He is very frustrated that he is not improving. He wants to go home badly. He states that they are trying different medications but are not helping him improve enough to be able to go home. He was able to repeat back to me what we had said in the morning. I E he understood that he has a renal mass that may be cancer but that he is not well enough yet to investigate this. He also understands that his heart is in a precarious position where they are trying to keep him out of congestive failure and also hydrated enough so he is not dehydrated. He also understands that his kidneys are not functioning very well probably due to the diuretics that are necessary. Initially he states that he does not want physical therapy. He is upset that his neighbors are not more helpful. He was unable to give me specific examples of ways that he would want them to be helpful. He was also able to tell me the success rate of CPR and that he is success rate would probably be less because of his age and comorbidities On exam this evening he was very monosyllablic and often stared into space. He had a very very flat affect. Systolic murmur. Lung he does not have any crackles tonight. He looks very depressed. I did speak to the hospitalist team and recommended that they consider mirtazapine for both its antidepressant and also antianxiety properties. After speaking with me patient decides that he would like to have physical therapy. I relayed this to the hospitalist team Will continue to follow. Please note I did not address CODE STATUS this evening Review of Systems Narrative: He states that it is hard for him to move because of weakness. He is also very short of breath. He states that today he is not having chest pain. He has no complaints about urination. PFSH All Active Problems (Updated 10/14/22 @ 16:56 by Jorge A Espinosa MD) Sacral decubitus ulcer (Acute) Palliative care patient (Acute) Hyponatremia (Acute) Shortness of breath (Acute) Hyperkalemia (Acute) Discharge planning issues (Acute) DVT prophylaxis (Acute) Renal mass (Acute) Aortic stenosis (Chronic) Acute congestive heart failure (Acute) Weight loss, non-intentional (Acute) Transaminitis (Acute) SOB (shortness of breath) (Acute) A-fib (Chronic) Medical History HTN (hypertension) Surgical History No significant past surgical history Social History Smoking/Tobacco Use Status: Never Smoking risk assessment performed?: Yes Alcohol Intake: never Drug use: Never Substance use type: does not use Do you feel safe at home: Yes Do you feel safe in your relationship?: Yes Exam Narrative Exam Narrative: Debilitated, confused man. He does not grasp what is being said to him. We talked briefly about CODE STATUS and what it meant. We talked briefly about his probable renal cell carcinoma. Again he gets confused and states he does not know anything about this. His heart is irregular. His lungs do have some crackles especially on the left side. His abdomen is nontender. He looks frail and weak. He also looks depressed and confused Results Last Vital Signs Temp 96.8 F L 10/14/22 07:59 Pulse 55 L 10/14/22 07:59 Resp 21 10/14/22 07:59 BP 92/56 L 10/14/22 07:59 Pulse Ox 94 10/14/22 07:59 Laboratory Tests 10/12/22 10/14/22 05:43 06:15 Sodium 122 L* BUN 103 H* Creatinine 2.6 H AST 43 H ALT 80 H Alkaline Phosphatase 134 H NT-Pro-B Natriuret Pep > 47634 H Albumin 2.9 L Labs Result diagrams: 10/11/22 05:54 10/15/22 05:40 Labs: Laboratory Results - last 24 hr 10/14/22 06:15 Sodium 122 L* Potassium 4.8 D Chloride 87 L Carbon Dioxide 22.2 Anion Gap 12.8 H BUN 103 H* Creatinine 2.6 H Est GFR (CKD-EPI 2020) 23.87 Glucose 144 H Calcium 8.3 L Total Bilirubin 1.0 AST 43 H ALT 80 H Alkaline Phosphatase 134 H Total Protein 6.1 L Albumin 2.9 L Imaging Imaging Studies: 09/14 Exam(s) a CT:CT chest/abd/pel w Exam(s) CT CHEST/ABD/PEL W EXAM: ? CT CHEST/ABD/PEL W CLINICAL HISTORY: ? evaluate renal mass and possible mets. ? TECHNIQUE:? Imaging Protocol: Axial computed tomography images with coronal and sagittal reformatted images were created and reviewed CONTRAST MATERIAL:? Intravenous: Omnipaque 350 Contrast volume:100 ml Oral: None COMPARISON:? No exams were available for comparison FINDINGS: CHEST: LUNGS: There are moderate-sized bilateral pleural effusions, right larger than left..? There is volume loss and infiltrate in the right lung base.? No obvious pulmonary metastatic nodules.? No focal findings in trachea and mainstem bronchi. MEDIASTINUM: There is no hilar nor mediastinal adenopathy. Visualized thyroid unremarkable. CARDIAC: There is cardiomegaly.? No pericardial effusion.? Coronary artery calcification noted.? Caliber thoracic aorta is within normal limits.? No dissection evident. OSSEOUS: No significant osseous lesions.Indentation at the superior endplate L2, not appearing acute.. ABDOMEN: There is no ascites. LIVER: There is a 1.2 by 0.9 cm hypodensity in the left hepatic lobe as well as another well-defined hypodensity in left hepatic lobe, measuring 12 x 12 millimeters.? These are both probably cysts arm angiomas.? Less likely metast atic disease.? GALLBLADDER/BILIARY: No obvious gallbladder pathology.? CBD is not dilated. PANCREAS: No evidence of pancreatic mass nor dilatation of the pancreatic duct.? SPLEEN: Spleen is not enlarged. There are no intrasplenic lesions.? Splenic and portal veins are patent. ADRENALS: There are no significant adrenal masses. KIDNEYS: Left kidney unremarkable with the exception of a small 1 cm cyst in the inferior pole..? There is a large malignant-appearing mass in the right kidney occupying the mid and inferior aspects of the right kidney.? This mass measures approximately 8.7 cm AP by 8 cm wide by 10 cm craniocaudal.? No obvious extension of the tumor into the renal veins.? There is a benign cyst in the superior aspect of the right kidney which measures 2.4 by 2.4 cm.? Right renal veins appear patent without obvious tumor invasion. ABDOMINAL AORTA: Calcified but not enlarged.? However, there is atherosclerotic involvement and mild aneurysmal dilatation of the left common iliac artery which exhibits maximum external diameter of 1.5 cm. LYMPH NODES: There is no retroperitoneal nor paraaortic adenopathy. ABDOMINAL WALL: No evidence of significant anterior abdominal wall nor inguinal hernia.? GI: There is no evidence of bowel obstruction. PELVIS:? LYMPH NODES: There is no intrapelvic nor inguinal adenopathy. GI: No evidence of appendicitis.Extensive sigmoid diverticulosis without evidence of obvious acute diverticulitis.? No obvious appendicitis. URINARY BLADDER: No calculi nor masses evident REPRODUCTIVE: Moderate prostate enlargement.? No obturator adenopathy. OSSEOUS: No significant osseous lesions. IMPRESSION: 1. The main finding here is a large 9 x 10 cm malignant appearing right renal mass occupying most of the mid and inferior aspect of the right kidney, without evidence of right renal vein tumor thrombosis.? No solid lesions seen in the opp osite-left kidney.? No obvious mass in the urinary bladder. 2. Extensive sigmoid diverticulosis with no evidence of acute diverticulitis. 3. Two hypodensities in the liver which have more the appearance of cysts or hemangiomas than ominous metastatic disease. 4. Bilateral pleural effusions of moderate size. Other findings as above.
[2022-10-14] MEDS: Empaglifozin 10 MG TAB PO (08:39)
[2022-10-14] MEDS: Amiodarone 200 MG TAB 400 MG PO ×2 (08:39→20:20)
[2022-10-14] MEDS: Normal Saline Flush 10 ML SYR IVP ×3 (08:40→21:19)
[2022-10-14] MEDS: Apixaban 2.5 MG TAB PO ×2 (09:22→20:20)
--- NOTE | 2022-10-14 16:44 | CMPROGNOTE_ITS ---
- If Service Date Differs Date of service: 10/14/22 Time of Service: 16:44 Care Management Progress Note S/O: Domingo remains inpatient at this time, CM continues to support Domingo and Paris in managing new information and discharge planning, as they both struggle to intake new information, process and make decisions. Both remain quite pleasant in interaction, especially when provided time to process and ask questions re: plan of care and review details. Unfortunately income limits for Domingo and Paris's household make them ineligible for most support services, per Rachel (ARUNA). CM sat with Dr. Espinosa and Domingo as he explained fluid restriction and starting new medication Jardiance. CM reviewed information with Domingo afterward to ensure understanding. Anticipate Domingo will continue to be evaluated for home O2, as per MD sats are dropping at night, which is creating more stress on his heart. CM continues to follow. CM spoke with RT: Aydee and Harvye who report documentation had been faxed to [facility] for Domingo to have oxygen upon discharge. They then reported not having the correct documentation for testing to prove necessity. MD ordered nocturnal 2L NC; needs to order overnight oximetry to monitor stats. CM communicated needs with RNCC, MD and RT, requesting RT to discuss orders with MD directly. A: 81 year old male admitted to [facility] 10/07/22 for JAYLEN (resolved), CHF, AFIB. P: Domingo will return home when ready per MD. Paris is coordinating new recliner and hospital bed, with community based support. CM reviewed options and contact information to support Paris in her efforts. He will resume RN services through [facility] and follow up with [facility] and [facility] as well as his PCP. New appointment at [facility] will be secured prior to discharge. CM will support Domingo in attaining and paying for new prescriptions and set up RCT to transport him home.
--- NOTE | 2022-10-14 16:49 | W.PM.PROGNOT ---
Date of Service Date of service: 10/14/22 Time of Service: 16:49 Assessment and Plan Assessment and plan (1) A-fib: Status: Chronic Assessment and plan: Increased metoprolol from 12.5 mg BID to 25mg BID Continue PO amiodarone. Continue cardiac monitoring. CCB contraindicated due to low LVEF. Suspect this is the reason for troponin elevation in addition to the CHF. Continue apixaban. Qualifiers: Atrial fibrillation type: longstanding persistent Qualified Code(s): I48.11 - Longstanding persistent atrial fibrillation (2) Hyperkalemia: Status: Acute Assessment and plan: s/p insulin/D50 and lokelma. Now low normal at 3.5. Resume torsemide. Holding sharlene-i d/t JAYLEN Restart spironolactone. renal diet. recheck chemistry in am (3) Acute congestive heart failure: Status: Acute Assessment and plan: Acute on chronic systolic CHF, LVEF of 20-25% on 09/17/22. CXR: questionably increased pulmonary edema as mentioned above. Likely cardiorenal syndrome. Lasix drip initiated. Monitor outpt, creatinine. Qualifiers: Heart failure type: systolic Qualified Code(s): I50.21 - Acute systolic (congestive) heart failure (4) Acute kidney injury: Status: Resolved Assessment and plan: Cr had returned to baseline but increased: 2.1> 2.3>2.6. Cardiorenal syndrome suspected Continue to monitor, particularly in background of diuresing on lasix drip. (5) Renal mass: Status: Acute Assessment and plan: Patient is being worked up for an outpatient nephrectomy. Care management is working on rescheduling his outpatient cardiology appointment. The patient was hoping to accomplish this here, but we discussed that this may not be realistic. (6) DVT prophylaxis: Status: Acute Assessment and plan: On apixaban. (7) Discharge planning issues: Status: Acute Assessment and plan: Full Code Palliative has discussed his goals of care. (8) Hyponatremia: Status: Acute Assessment and plan: Had improved, but now lower again. Lasix drip initiated. Monitor. (9) Sacral decubitus ulcer: Status: Acute Assessment and plan: Wound care nurse following. Mepilex. Freq turning. Subjective Subjective Patient reports: no new complaints, tolerating a regular diet and afebrile; denies nausea, vomiting or shortness of breath Interval history since last seen: He is concerned about whether or not he is going to get better. Feels fatigued. Exam Narrative Exam Narrative: General: Pleasant elderly male. Sitting in recliner. HEENT: EOMI, MMM Heart: irregularly irregular rhythm, tachy, no murmur Lungs: diminished at B bases. Nonlabored breathing. Abdomen: soft, nontender, nondistended Extremities: +2 edema BLE, TEDs in place. Skin: no rashes. Sacral decubitus ulcers not assessed. Objective Last Vital Signs Temp 36.1 C L 10/14/22 15:29 Pulse 51 L 10/14/22 15:29 Resp 22 10/14/22 15:29 BP 100/67 10/14/22 15:29 Pulse Ox 96 10/14/22 15:29 Laboratory Results - last 24 hr 10/14/22 06:15 Sodium 122 L* Potassium 4.8 D Chloride 87 L Carbon Dioxide 22.2 Anion Gap 12.8 H BUN 103 H* Creatinine 2.6 H Est GFR (CKD-EPI 2020) 23.87 Glucose 144 H Calcium 8.3 L Total Bilirubin 1.0 AST 43 H ALT 80 H Alkaline Phosphatase 134 H Total Protein 6.1 L Albumin 2.9 L
[2022-10-14] MEDS: Melatonin 3 MG TAB PO (21:19)
--- NOTE | 2022-10-14 23:55 | W.ANESVAS ---
Midline Placement Date Performed: 10/14/22 Procedure Time: 23:55 Requesting Provider: Leandro Padilla Procedure Location: Med/Surg Sedation Given (Indicate Dose Given): No Sedation given Patient Mental Status: Awake Sterility: Hand Hygiene, Surgical Cap, Surgical Mask, Sterile Gloves and Chlorhexidine Laterality: Left Insertion Site: Basilic Midline Device: PowerGlide Pro 20G Catheter Length: 10 cm Midline Procedure Procedure: Vessel accessed with catheter over needle, Guidewire placed with ease, Catheter placed without resistance and Guidewire removed Dressing: Tegaderm Applied and Statlock Applied Blood Return: Present Flushes: Easily Ultrasound: Sterile probe cover and gel used Ultrasound Image Saved?: Yes Number of Attempts (See previous attempts in note section): 1 Procedure Tolerated: No Complications and Patient tolerated well Procedure Outcome: Successful Performed By: Leandro Padilla
[2022-10-15] VITALS (15 sets, daily range): BP systolic 76–116; BP diastolic 51–73; PULSE 55–106; RESP 7–22; TEMP 36–36.7; O2SAT 88–98
[2022-10-15] MEDS: Normal Saline Flush 10 ML SYR IVP (05:25)
[2022-10-15 07:06] LABS: Anion Gap 10.7 mmol/L (3-11); CO2 26.3 mmol/L (21.0-32.0); CREATININE 2.5 mg/dL (0.70-1.30); Calcium 8.3 mg/dL (8.5-10.1); Chloride 86 mmol/L (98-107); Estimated GFR 25.02 (mL/min/1.73m2); Glucose 122 mg/dL (74-106)
[2022-10-15 07:18] LABS: BUN 115 mg/dL (7-18)
[2022-10-15 07:19] LABS: Sodium 123 mmol/L (136-145)
[2022-10-15] MEDS: Empaglifozin 10 MG TAB PO (08:10)
[2022-10-15] MEDS: Amiodarone 200 MG TAB 400 MG PO ×2 (08:10→19:28)
[2022-10-15] MEDS: Apixaban 2.5 MG TAB PO ×2 (08:10→19:27)
--- NOTE | 2022-10-15 11:21 | W.NUTCONSULT ---
Date of service: 10/15/22 Time of Service: 11:22 Nutritional Consult ASSESSMENT: Domingo has been admitted for 11 day with JAYLEN (now resolved) with mulitple medical problems. Renal mass identified, declining kidney function, hyponatremia, awaiting renal biopsy to r/o malignancy. CHF and Hyponatremia persists despite fluid restriction and diuretics. Now with sacral pressure wound. Domingo continues to be very confused- most likely due to hyponatremia and multiple medical problems. Following renal diet with adequate intake. Weight has been stable since admission. Estimated Needs: 1191-8320 kcal, 50-62 g protein, 1550 ml fluid meeting macronutrient needs at this time. NUTRITIONAL DIAGNOSIS: Increased nutrient needs for healing sacral pressure wound Compromised protein absorption/utilization in view of failing kidney function INTERVENTION: Continue renal diet and fluid restriction would not recommend extra protein supplements in view of kidney function will supplement diet with higher calorie foods and beverages to help meet caloric needs. MONITORING AND EVALUATION: weight, po intake, labs Time Spent in Nutritional Counseling and Treatment: 15
[2022-10-15] MEDS: Mylanta Suspension 30 ML CUP PO ×2 (13:52→18:21)
--- NOTE | 2022-10-15 17:13 | W.PM.PROGNOT ---
Date of Service Date of service: 10/15/22 Time of Service: 17:14 Assessment and Plan Assessment and plan (1) A-fib: Status: Chronic Assessment and plan: Increased metoprolol from 12.5 mg BID to 25mg BID Continue PO amiodarone. HR better controlled. Continue cardiac monitoring. CCB contraindicated due to low LVEF. Suspect this is the reason for troponin elevation in addition to the CHF. Continue apixaban. Qualifiers: Atrial fibrillation type: longstanding persistent Qualified Code(s): I48.11 - Longstanding persistent atrial fibrillation (2) Hyperkalemia: Status: Acute Assessment and plan: Now normalized. (3) Acute congestive heart failure: Status: Acute Assessment and plan: Acute on chronic systolic CHF, LVEF of 20-25% on 09/17/22. CXR: questionably increased pulmonary edema as mentioned above. Likely cardiorenal syndrome. Lasix drip initiated. Monitor outpt, creatinine. Qualifiers: Heart failure type: systolic Qualified Code(s): I50.21 - Acute systolic (congestive) heart failure (4) Acute kidney injury: Status: Resolved Assessment and plan: Cr had returned to baseline but increased: 2.1> 2.3>2.6>2.5. Cardiorenal syndrome suspected Continue to monitor, particularly in background of diuresing on lasix drip. (5) Renal mass: Status: Acute Assessment and plan: Patient is being worked up for an outpatient nephrectomy. Care management is working on rescheduling his outpatient cardiology appointment. The patient was hoping to accomplish this here, but we discussed that this may not be realistic. (6) DVT prophylaxis: Status: Acute Assessment and plan: On apixaban. (7) Discharge planning issues: Status: Acute Assessment and plan: Full Code Palliative has discussed his goals of care. (8) Hyponatremia: Status: Acute Assessment and plan: Had improved, but now lower again. Lasix drip initiated. Monitor. (9) Sacral decubitus ulcer: Status: Acute Assessment and plan: Wound care nurse following. Shantiileteresita. Freq turning. Subjective Subjective Patient reports: no new complaints, tolerating a regular diet and afebrile; denies shortness of breath Exam Narrative Exam Narrative: General: Pleasant elderly male. Sitting in recliner. HEENT: EOMI, MMM Heart: irregularly irregular rhythm, tachy, no murmur Lungs: diminished at B bases. Nonlabored breathing. Abdomen: soft, nontender, nondistended Extremities: +2 edema BLE, TEDs in place. Skin: no rashes. Sacral decubitus ulcers not assessed. Objective Last Vital Signs Temp 36.2 C L 10/15/22 14:53 Pulse 106 H 10/15/22 14:53 Resp 18 10/15/22 14:53 BP 95/59 L 10/15/22 14:53 Pulse Ox 98 10/15/22 14:53 Laboratory Results - last 24 hr 10/15/22 05:40 Sodium 123 L* Potassium 4.0 Chloride 86 L Carbon Dioxide 26.3 Anion Gap 10.7 BUN 115 H* Creatinine 2.5 H Est GFR (CKD-EPI 2020) 25.02 Glucose 122 H Calcium 8.3 L
--- NOTE | 2022-10-15 17:15 | CMPROGNOTE_ITS ---
- If Service Date Differs Date of service: 10/15/22 Time of Service: 17:15 Care Management Progress Note S/O: Domingo was exhausted today when CM met with him. He reported his belly didn't feel good and felt full. Lavinia, RN provided Aqua Skip. CM spoke to Paris in length re: treatment planning, noting lack of medical stability and progress. CM coordinated [facility] to transport Paris to come see Domingo tomorrow and then take her home. She will visit from 11:00-12:00. CM continues to follow. SUSAN spoke to SUMEET Neely who reported Domingo is open to having home care, and case management through [facility], referral to be completed tomorrow. Anticipate hearing from COA CM as soon as case is assigned. A: 81 year old male admitted to [facility] 10/07/22 for JAYLEN (resolved), CHF, AFIB. P: Domingo will return home when ready per MD. Paris is coordinating new recliner and hospital bed, with community based support. CM reviewed options and contact information to support Paris in her efforts. He will resume RN services through [facility] and follow up with [facility] and [facility] as well as his PCP. New appointment at [facility] will be secured prior to discharge. CM will support Domingo in attaining and paying for new prescriptions and set up [facility] to transport him home. SUSAN spoke with RT: Ciera who report documentation had been faxed to [facility] for Domingo to have oxygen upon discharge.
[2022-10-15] MEDS: Normal Saline 1,000 ML 250 ML IV (21:08)
[2022-10-15] MEDS: Melatonin 3 MG TAB PO (21:09)
[2022-10-15] MEDS: Potassium Chloride 20 MEQ TABCR PO (21:09)
--- NOTE | 2022-10-16 00:16 | W.ED.EVENT ---
Date of service: 10/16/22 Time of Service: 12:00 Event Note: Hi lu called at 2350. I arrived to the ICU to note an elderly male unresponsive in asystole and pulseless. Nursing staff was providing compressions. It was reported that they attempted to call girlfriend. It was discussed that patient is a full code but plan was for him to be transition to DNR/DNI tomorrow. Nursing print line supervisor had called the ED earlier tonight to report that pt was hypotensive and not doing well and was being moved to the ICU after hospitalist informed. Floor nursing staff appeared to be providing ineffective compressions and this was resumed with ED staff with effective compressions. Patient briefly had a weak pulse but then was pulseless again and asystole on the monitor. No blood pressure obtained. He had a large amount of yellow secretions coming from the nose and mouth that became evident with effective compressions. He was initially intubated with a 7.5 ET tube with resistant bagging. There was large amount of secretions in the airway and 7.5 ET tube removed and replaced easily with a 6.5 ET tube with easy bagging. Compressions were continued and a total of 3 doses of 1 mg epinephrine administered. See code sheet for additional details. Bedside ultrasound confirmed no effective cardiac wall motion activity. Pt remained pulseless and in asystole. Time of 1208. Dr. Cruz now at bedside. Time Spent with Patient Time spent in critical care(minutes): 20 minutes Time Spent Included: Performing procedures not included in c.c time, Documenting critically ill care and Time at immediate bedside
--- NOTE | 2022-10-16 00:31 | W.PM.DDS ---
Date of service: 10/16/22 Time of Service: 01:16 Discharge Plan Disposition Patient Disposition: Discharge Details Reason For Visit: JAYLEN, Ischemic Cardiomyopathy, CHF, AFib Admit Date/Time: 10/04/22 05:20 Admit Provider: Pavan Gonzales Attending Provider: Pavan Gonzales Primary Care Provider: Radha Amador V Hospital Course Hospital Course: This is an 81-year-old gentleman who was admitted with acute CHF with shortness of breath. He had decompensated tachycardia with chronic atrial fibrillation and eventually was placed on amiodarone with good heart rate control. He never did recover well from treatment of his CHF and was placed on a Lasix infusion which he did not tolerate the day of his with little output and hypotension. He progressively deteriorated with hypotension and hypoxemia with worsening CHF not responding to diuresis and his hypotension that responded to a small bolus of normal saline. He was transferred to the ICU after long discussion with his presumed DPOA who was his partner and when DPOA was called to discuss CODE STATUS once again because of patient's poor prognosis, all she wanted to discuss was him signing his well. There were plans for the patient to become a DNR/DNI with his partner and they are a close friend talking to palliative care. The patient was a full code and in the ICU did deteriorate requiring intubation and CPR. He went into asystole which did not respond to ACLS protocol with epinephrine x3. He did have copious amounts of material in his stomach and some in his his lungs which were suctioned with patient ventilated but not responding. He was pronounced at 00:08 hours on the date of , 10/16/2022. The patient body was released to the [facility] and he did have his body presented to his partner [facility] Discharge Data Cause of : Cardiogenic shock Discharge Date/Time-TO BE ENTERED AT DEPARTURE: 10/16/22 01:15 Discharge Sum: Prov Provider Primary care physician: Pavan Gonzales MD Admitting clinician: Pavan Gonzales Attending physician on admission: Pavan Gonzales Consults: 10/06/22 11:18 Occupational Therapy Consult [CONS] Routine Consulting Provider: Sara Cedeño Priority: Non-Urgent Reson for Non-Urgent Priority: Limited Ability 10/07/22 08:17 Cardiology Consult [CONS] Routine Consultation Status:: Follow-up needed Clarification:: Manage/follow per spec. Reason for consult:: heart failure, renal disease, Atrial fib with rapid V response Pronouncing clinician: Maco Cruz Discharge Sum: Diag PCOD Cause of : Cardiogenic shock Contributing Factors (1) A-fib: (2) Hyperkalemia: (3) Acute congestive heart failure: (4) Acute kidney injury: (5) Renal mass: (6) DVT prophylaxis: (7) Discharge planning issues: (8) Hyponatremia: (9) Sacral decubitus ulcer: Discharge Sum: Summary Date and Time Admission Date: 10/04/2211/11/22 05:20 Date of : 10/16/22 Time of : 00:08 Summary Details: See hospital summary for patient's resuscitation also reviewing resuscitation note by Bryanna Davila DO. Additional Data Confirmation of as documented by pronouncing clinician: no pulse, no respirations, no heart sounds and pupils fixed and dilated Family: at bedside (arrived shortly after ) and contacted Attending/PCP notified?: No Attending Physician: Pavan Birmingham Was code activated?: Yes Autopsy requested?: No property insurance claims examiner notified?: No Organ bank notified?: No Advance directives: Yes Hospice patient?: No
--- NOTE | 2022-10-16 01:36 | W.ED.PROC ---
Date of service: 10/16/22 Time of Service: 12:05 Procedures Intubation Time out performed: Yes sedative: none Laryngoscope: Bryn ET Tube Size: 6.5 Tube Secured Depth (cm): 23 Tube Secured Location: lips Tube Placement Confirmation: visualized tube passing through cords and equal breath sounds bilaterally Patient Tolerated Procedure: other (initially intubated with a 7.5 ETT but resistant bagging and large amount of secretions in airway. Tube switched to a 6.5 ETT and bagging easily) Medical Decision Making Addendum/Correction to Critical event note: Date of : 10/16/22 Time of : 00:08. Sign Out No
== END 2022-10-16 01:15 | disposition expired | DRG 291 ==
LOC: ER 05:26 → ICU 06:12 → MS 10-06 14:11
PROVIDERS: Family Medicine; Internal Medicine; Admitting Provider Family Medicine; Emergency Provider Student in an Organized Health Care Education/Training Program; PCP Family Medicine; Visit Provider Family Medicine
DX: I11.0 Hypertensive heart disease with heart failure (principal); I50.23 Acute on chronic systolic (congestive) heart failure; C64.9 Malignant neoplasm of unspecified kidney, except renal pelvis; N17.9 Acute kidney failure, unspecified; I48.11 Longstanding persistent atrial fibrillation; E87.1 Hypo-osmolality and hyponatremia; I35.0 Nonrheumatic aortic (valve) stenosis; R63.4 Abnormal weight loss; Z68.22 Body mass index [BMI] 22.0-22.9, adult; R74.8 Abnormal levels of other serum enzymes; R74.01 Elevation of levels of liver transaminase levels; E87.5 Hyperkalemia; I25.5 Ischemic cardiomyopathy; I95.9 Hypotension, unspecified; R09.02 Hypoxemia; L89.151 Pressure ulcer of sacral region, stage 1; L89.152 Pressure ulcer of sacral region, stage 2; R57.0 Cardiogenic shock
CPT/HCPCS: 31500; 36415; 76942; 80048; 80051; 80053; 82805; 85027; 87635; 93005; 93308; 96374; 97165; 97535; 99291; 71045; 83735; 83880; 84443; 84484; 85025; 85610; 85730; 93010; 94762; 99223; 99232; 99233; 99239; J1940; J3490